=== PATIENT | male | born 1995 | race Caucasian/White ===

== ENCOUNTER 2017-09-25 14:43 | Emergency (ER) | payer OTHER ==
[2017-09-25 15:06] VITALS: BP 125/58; PULSE 70; TEMP 98.6; BMI 27.2
--- NOTE | 2017-09-25 15:20 | PDOC ---
History of Present Illness - General Chief Complaint: Substance Abuse Stated Complaint: POSSIBLE SEIZURE Time Seen by Provider: 09/25/17 15:19 - History of Present Illness Initial Comments: 09/25/17 16:08 22yo man who is current smoker and h/o seizures (on Keppra 750mg BID) who was BIBEMS after mother thought the patient was behaving abnormally and abusing drugs (Xanax and Heroine). Patient denies any recent seizure, chest pain, chest tightness, dysuria, fever, chills. He states he stopped using Heroine when he was started on Keppra 5-6 weeks ago. Patient lives at home with mother and does not work. Neurologist: Dr. Ashraf Past History - Past Medical History Allergies/Adverse Reactions: Allergies Allergy/AdvReac Type Severity Reaction Status Date / Time No Known Allergies Allergy Verified 09/25/17 14:45 Home Medications: Ambulatory Orders Levetiracetam [Keppra] 750 mg PO BID 09/25/17 Anemia: No Asthma: No Cancer: No Cardiac Disorders: No CVA: No COPD: No CHF: No Dementia: No Diabetes: No GI Disorders: No Disorders: No HTN: No Hypercholesterolemia: No Liver Disease: No Seizures: Yes Thyroid Disease: No - Surgical History Abdominal Surgery: No Appendectomy: No Cardiac Surgery: No Cholecystectomy: No Lung Surgery: No Neurologic Surgery: No Orthopedic Surgery: No - Suicide/Smoking/Psychosocial Hx Smoking History: Current every day smoker Have you smoked in the past 12 months: Yes Number of Cigarettes Smoked Daily: 15 Information on smoking cessation initiated: No 'Breaking Loose' booklet given: 05/03/16 Hx Alcohol Use: No Drug/Substance Use Hx: No Substance Use Type: Marijuana Hx Substance Use Treatment: No *Physical Exam - Vital Signs Last Vital Signs Temp Pulse Resp BP Pulse Ox 98.6 F 70 18 125/58 100 09/25/17 14:46 09/25/17 14:46 09/25/17 14:46 09/25/17 14:46 09/25/17 14:46 Medical Decision Making - Medical Decision Making 09/25/17 16:18 22yo man with PMH of seizures (on Keppra) who presents after mom called EMS for abnormal behavior. Patient offers no complaints. He denies any current drug abuse or seizures, and requesting to go home. Vital signs are stable. Patient can ambulate without issue. He denies SI and HI. He will be discharged home. 09/25/17 19:48 *DC/Admit/Observation/Transfer Diagnosis at time of Disposition: discharged by md - Referrals Referrals: Elis Vega MD [Primary Care Provider] - - Patient Instructions Additional Instructions: Follow-up with your primary care doctor in 2-3 days. Return to the emergency department if you have any new, worsening or concerning symptoms. - Post Discharge Activity
--- NOTE | 2017-09-27 19:47 | PDOC ---
Attending Attestation - Resident Resident Name: Corin Craig - ED Attending Attestation I have performed the following: I have examined & evaluated the patient, The case was reviewed & discussed with the resident, I agree w/resident's findings & plan, Exceptions are as noted - HPI HPI: 09/27/17 19:48 22yo M hx seizure d/o since childhood, smoker, PSA (heroin, xanax) BIBEMS by mother for "abnormal behavior." Pt is agitated and states he does not know why he is here. On my arrival to evaluate the patient, he begins to shout at his mother for bringing him to the ED. I asked his mother to step out of the room and had her escorted to the vertical area while I evaluated the patient alone. He states his mother activated EMS while he was taking a nap. He has no current medical complaints, denies fevers, chills, CP, SOB, headache, weakness, numbness , abd pain, N/V/D, seizures. He denies recent drug use, states he last used heroin 1 month ago when he had his last seizure. He reports compliance with his Keppra, states he takes 750mg BID. Pt reports he does not know why his mother activated EMS. He states he lives in the top floor of her house and does not currently work. He denies any current thoughts of hurting himself or anyone else. Denies any AH/VH. He requests to be discharged. Upon speaking with the patient's mother, she reports that she suspects he has been using drugs again and may have seen a text on his phone where he was going to purchase drugs. She states he did not have a seizure but that she is very worried about him using drugs again. She would like us to keep him in the hospital so that he can get some help. She denies that he was a threat to himself or others. She is concerned he may have stolen money from a family members wallet. She is very tearful during this conversation. Per EMS, they were called for reported seizure, although on their arrival, pt was behaving normally, not post ictal and had no seizure activity. - Physicial Exam PE: 09/27/17 20:19 GENERAL: Awake, alert, and fully oriented, in no acute distress HEAD: No signs of trauma EYES: PERRLA, EOMI, sclera anicteric, conjunctiva clear ENT: Auricles normal inspection, hearing grossly normal, nares patent, oropharynx clear without exudates. Moist mucosa NECK: Normal ROM, supple, no lymphadenopathy, JVD, or masses LUNGS: Breath sounds equal, clear to auscultation bilaterally. No wheezes, and no crackles HEART: Regular rate and rhythm, normal S1 and S2, no murmurs, rubs or gallops ABDOMEN: Soft, nontender, normoactive bowel sounds. No guarding, no rebound. No masses EXTREMITIES: Normal range of motion, no edema. No clubbing or cyanosis. No cords, erythema, or tenderness BACK: No midline spinal tenderness in cervical/thoracic/lumbar region NEUROLOGICAL: Normal speech, cranial nerves intact, negative pronator drift, 5/ 5 strength in all 4 extremities, normal sensation to light touch in all 4 extremities, normal cerebellar exam, normal gait, normal reflexes and tone SKIN: Warm, Dry, normal turgor, no rashes or lesions noted. - Medical Decision Making 09/25/17 21:37 22yo M hx seizure d/o, PSA BIBEMS after pt's mom was concerned that her son was using drugs. Pt's mother requesting that we keep her son here in the hospital as she would like him to be off the drugs. The pt's vitals and exam are wnl. The patient denies drug use and has no medical or psychiatric complaints. I briefly placed the patient on security watch after he was agitated and shouting at his mother. He requests to be discharged, and I believe that after my evaluation, he has the capacity to make this decision. He does not appear to be intoxicated and is cooperative. He has no current acute medical or psychiatric needs. His mother is concerned that he will use drugs, however I informed her that I can not keep him here against his will as he is an adult. I discussed the case with our rn radiation oncology psychiatrist JADE Chavez who agrees with this plan.
== END 2017-09-25 16:57 | disposition home or self-care (01) ==
LOC: JER 14:43
DX: Z03.89 Encounter for observation for other suspected diseases and conditions ruled out (principal); G40.909 Epilepsy, unspecified, not intractable, without status epilepticus; F17.210 Nicotine dependence, cigarettes, uncomplicated
CPT/HCPCS: 99282-25

== ENCOUNTER 2017-11-15 07:31 | Inpatient (IN) | payer OTHER ==
[2017-11-15] MEDS ORDERED: SODIUM CHLORIDE 1,000 ML IV STA (07:47)
[2017-11-15] MEDS ORDERED: ACETAMINOPHEN 1000 MG/100 ML VIAL (NON FORMULARY) IVPB ONE (07:48)
[2017-11-15] MEDS ORDERED: NALOXONE HCL 0.4 MG/ML VIAL ONE ×2 (07:49→08:15)
--- NOTE | 2017-11-15 07:50 | PDOC ---
Attending Attestation - Resident Resident Name: Pablo Han - ED Attending Attestation I have performed the following: I have examined & evaluated the patient, The case was reviewed & discussed with the resident, I agree w/resident's findings & plan, Exceptions are as noted - HPI HPI: 11/15/17 08:00 22y M hx of heroin abuse, seizures (on keppra) presents with AMS and SOB. Per family, he was fine yesterday, this morning, they found him confused and breathing noisily. received .4 then .4 by On arrival the pt was confused, but awake, saturating around 88% on NRB, lethargic, agitated, tachy to 102, with rhonchorus breath sounds. ddx: sepsis/pna/influenza/aspiration 11/15/17 08:31 on arrival the patients sat was in the 80s on NRB, after another dose of narcan , he was more arousable currently, able to tell me his name. respiration increased with improved sats. will continue to observe him, and narcan PRN considerd intubation / NIV if more alert 11/15/17 12:00 pts albs reviewed noted for ben trop slightly elevated -suspect due to demand ichemia as pt denies cp and there are no ischemic changes on his ekg after a dose of narcan he was much more awake, able to tell me his name, but refusing to tell me anything else about what happened prior to presentation . cxr shows b/l infiltrates, pts sat improving after bipap, currently on 07/15, 80% and is at 96% ct chest was obtained to r/o PE, and further clarify his b/l inifltrates due to his severe hypoxia, +trop lactic acid originally at 4.5, improved to 2s after hydration 11/15/17 14:30 pt awake, alert, mom bedside still on bipap, doing well. asking for water. pts CT shows /bl infiltrates likely pna no PE will admit under dr. tejeda service to ICU CRITICAL CARE DOCUMENTATION: I spent ~95 minutes of Critical Care time, excluding separately billable procedures, involving high complexity decision making to assess, manipulate and support vital system function(s) to treat single or multiple vital organ system failure and/or to prevent further life threatening deterioration of the patient' s condition. - Physicial Exam PE: 11/16/17 07:36 see above - Medical Decision Making 11/16/17 07:36 see above Heart Score/ECG Review - ECG Impressions Comment:: 11/15/17 08:34 Twelve-lead EKG was performed and reviewed by me. There is normal sinus rhythm with a HR of [address] changes suggestive of ischemia
[2017-11-15] MEDS ORDERED: ACETAMINOPHEN INJECTION 100 ML IVPB ONE (07:59)
[2017-11-15 08:08] LABS: VENOUS PC02 36.3 mmHg (38-52); VENOUS PH 7.27 (7.32-7.42); VENOUS PO2 53.1 mmHg (28-48)
[2017-11-15] MEDS ORDERED: NALOXONE HCL 0.4 MG/ML VIAL IVPUSH ONE (08:10)
[2017-11-15 08:17] LABS: BASO % 0.1 % (0-2.0); HEMATOCRIT 48.9 % (35.4-49); HEMOGLOBIN 15.4 GM/dL (11.7-16.9); LYMPH % 19.4 % (8-40); MCH 26.5 pg (25.7-33.7); MCHC 31.6 g/dl (32.0-35.9); MEAN CELL VOLUME 83.8 fl (80-96); MEAN PLT VOLUME 8.8 fl (7.5-11.1); MONO % 4.7 % (3.8-10.2); NEUT % 75.8 % (42.8-82.8); PLATELET COUNT 199 K/MM3 (134-434); RBC 5.84 M/mm3 (4.00-5.60); RDW 14.3 % (11.9-15.9); WHITE BLOOD COUNT 4.5 K/mm3 (4.0-10.0)
--- NOTE | 2017-11-15 08:30 | PDOC ---
History of Present Illness - General Chief Complaint: Altered Mental Status Stated Complaint: ALTERED MENTAL STATUS Time Seen by Provider: 11/15/17 07:39 History Source: Family Exam Limitations: Clinical Condition - History of Present Illness Initial Comments: 11/15/17 08:12 The patient is a 22M with a PMH of seizures who presents to the ER altered. The patient is with his mother who provides the history. The mother states that she saw the patient last night and he was in his normal state of health around 2330. She states that this morning she found him in his bed and he sounded like he was gurgling and was altered. He has a history of heroine abuse which he was seen in our facility for in the past. She says she's tried to keep a close eye on him but she's not sure if he used or not, or if he had a seizure or not. Past History - Past Medical History Allergies/Adverse Reactions: Allergies Allergy/AdvReac Type Severity Reaction Status Date / Time No Known Allergies Allergy Verified 11/15/17 08:48 Home Medications: Ambulatory Orders Levetiracetam [Keppra] 750 mg PO BID 09/25/17 Anemia: No Asthma: No Cancer: No Cardiac Disorders: No CVA: No COPD: No CHF: No Dementia: No Diabetes: No GI Disorders: No Disorders: No HTN: No Hypercholesterolemia: No Liver Disease: No Seizures: Yes Thyroid Disease: No - Surgical History Abdominal Surgery: No Appendectomy: No Cardiac Surgery: No Cholecystectomy: No Lung Surgery: No Neurologic Surgery: No Orthopedic Surgery: No - Suicide/Smoking/Psychosocial Hx Smoking History: Current every day smoker Have you smoked in the past 12 months: Yes Number of Cigarettes Smoked Daily: 15 Information on smoking cessation initiated: No 'Breaking Loose' booklet given: 05/03/16 Hx Alcohol Use: No Drug/Substance Use Hx: No Substance Use Type: Heroin, Marijuana Hx Substance Use Treatment: No Review of Systems - Review of Systems Able to Perform ROS?: No (clinical condition) Is the patient limited Nigerian proficient: No *Physical Exam - Vital Signs Last Vital Signs Temp Pulse Resp BP Pulse Ox 102.3 F H 160 H 36 H 119/46 100 11/15/17 07:35 11/15/17 07:35 11/15/17 07:35 11/15/17 07:35 11/15/17 07:35 - Physical Exam Comments: 11/15/17 09:15 GENERAL: Well developed, well nourished. Awake and alert. In moderate distress. HEENT: Normocephalic, atraumatic. Hearing grossly normal. Dry mucous membranes. Pinpoint pupils. No conjunctival pallor. Sclera are non-icteric. Oropharynx is clear. NECK: Supple. Full ROM. No JVD. No lymphadenopathy. CARDIOVASCULAR: Regular rate and rhythm. No murmurs, rubs, or gallops. PULMONARY: Tachypneic w/ b/l rhonchi. ABDOMINAL: Soft. Non-tender. Non-distended. No rebound or guarding. MUSCULOSKELETAL: Normal range of motion at all joints. No bony deformities or tenderness. EXTREMITIES: No cyanosis. No clubbing. No edema. No calf tenderness. SKIN: Warm and dry. Normal capillary refill. No rashes. No jaundice. PSYCHIATRIC: Not cooperative. Poor eye contact. Altered. Heart Score/ECG Review #1 ECG reviewed & interpreted by me at: 10:17 General ECG Interpretation: Sinus Rhythm, Normal Rate, Normal Intervals, No acute ischemic changes Compared to previous ECG there are: Changes noted (New tachycardia) 11/15/17 10:18 Sinus tachycardia 159 AR 114 QRS 68 QTc 390 Unchanged except for tachycardia ED Treatment Course - LABORATORY CBC & Chemistry Diagram: 11/15/17 07:50 11/15/17 07:50 - ADDITIONAL ORDERS Additional order review: Laboratory Results 11/15/17 07:50 VBG pH 7.27 L POC VBG pCO2 36.3 L POC VBG pO2 53.1 H Mixed VBG HCO3 16.0 L - Medications Given in the ED: ED Medications Discontinued Medications Generic Name Dose Route Start Last Admin Trade Name Freq PRN Reason Stop Dose Admin Acetaminophen 1,000 mg 11/15/17 07:48 11/15/17 08:02 Ofirmev Injection - IVPB 11/15/17 07:49 1,000 mg ONCE ONE Administration Medical Decision Making - Medical Decision Making 11/15/17 10:19 The patient is a 22M with a PMH of heroine abuse and seizures who presents altered. Incoming vitals significant for tachy to 150's, tachypneic to 30's, rectal temp of 102. Septic protocol is being followed. Will monitor closely. Pt requiring bipap at 100% to maintain saturation of 95%+. Broad spectrum abx and tylenol ordered IV. XR reveals b/l interstitial infiltrates, possibly ARDS. Consent signed for intubation. Drugs were found in his wallet. Presentation is likely a heroine OD with possible seizure activity and/or aspiration. Will order CT chest and head to look for other pathologies. Pt 97% on 80% FiO2 bipap. Pulse 109. Resp 23. Improving with fluids, tylenol and abx. 11/15/17 13:46 CTA IMPRESSION: 1. No evidence of pulmonary embolism. 2. Extensive, bilateral consolidation suspicious for acute pneumonia. Clinical correlation and follow- up recommended. Please see above discussion. CT Head: IMPRESSION: No definite interval change from 05/03/[address] No acute intracranial hemorrhage, mass effects or hydrocephalus. Paged Dr. Whitney for ICU admission. Pt is not producing urine. Straight cath before 3rd liter showed very little urine output. Pt satted in high 80's on 80%. Brought to 95% on 90% FiO2. 11/15/17 14:16 Dr. Vallecillo accepts admission to ICU. 11/15/17 14:42 Dr. Whitney accepts admission for ICU. *DC/Admit/Observation/Transfer Diagnosis at time of Disposition: Altered mental status Qualifiers: Altered mental status type: disorientation Qualified Code(s): R41.0 - Disorientation, unspecified Heroin overdose Qualifiers: Encounter type: subsequent encounter Injury intent: accidental or unintentional Qualified Code(s): T40.1X1D - Poisoning by heroin, accidental ( unintentional), subsequent encounter - Discharge Dispostion Condition at time of disposition: Guarded Admit: Yes - Referrals Referrals: Elis Vega MD [Non Staff, Medical] - - Patient Instructions - Post Discharge Activity
[2017-11-15 08:38] LABS: INR 1.23 (0.82-1.09); PROTHROMBIN TIME (PATIENT) 13.9 SEC (9.98-11.88)
[2017-11-15 08:40] LABS: ACTIVATED PTT 25.6 SECONDS (26.9-34.4); ALBUMIN 4.2 g/dl (3.4-5.0); ANION GAP 12 (8-16); BILIRUBIN,TOTAL 0.3 mg/dL (0.2-1.0); BLOOD UREA NITROGEN 19 mg/dL (7-18); CALCIUM 8.4 mg/dL (8.5-10.1); CHLORIDE 107 mmol/L (98-107); CO2 22 mmol/L (21-32); CREATININE 1.6 mg/dL (0.7-1.3); GLUCOSE,RANDOM 72 mg/dL (74-106); POTASSIUM 4.3 mmol/L (3.5-5.1); SGOT/AST 30 U/L (15-37); SGPT/ALT 26 U/L (12-78); SODIUM 141 mmol/L (136-145); TOT PROT 6.6 g/dl (6.4-8.2)
[2017-11-15 08:54] LABS: ALK PHOS 101 U/L (45-117)
[2017-11-15] MEDS ORDERED: SODIUM CHLORIDE 1,000 ML IV ONE ×2 (08:57→14:18)
[2017-11-15] MEDS ORDERED: SODIUM CHLORIDE 0.9% 1000 ML INFUS.BAG IV ONE ×2 (09:03→12:53)
[2017-11-15] MEDS ORDERED: PIPERACILLIN/TAZOB 4.5 GM 4.5 GM/100 ML BAG IVPB ONE ×2 (09:19→10:04)
[2017-11-15] MEDS ORDERED: VANCOMYCIN 1 GRAM (PRE-DOCKED) 1,000 MG/250 ML BAG IVPB ONE (10:04)
[2017-11-15 10:05] LABS: URINE APPEARANCE SLCLOUDY; URINE BILIRUBIN NEGATIVE (NEGATIVE); URINE BLOOD NEGATIVE (NEGATIVE); URINE COLOR YELLOW; URINE GLUCOSE (UA) 2+ (NEGATIVE); URINE KETONE NEGATIVE (NEGATIVE); URINE LEUK ESTERASE NEGATIVE (NEGATIVE); URINE NITRITE NEGATIVE (NEGATIVE); URINE UROBILINOGEN NEGATIVE mg/dL (0.2-1.0)
[2017-11-15 10:06] LABS: URINE PROTEIN 1+ (NEGATIVE)
[2017-11-15 10:11] LABS: EPI CELLS RARE /HPF (FEW); URINE BACTERIA RARE /hpf (NONE SEEN); URINE MUCUS RARE
[2017-11-15 10:15] LABS: COCAINE, UR NEGATIVE ng/ml (CUTOFF=300); METHADONE, UR NEGATIVE ng/ml (CUTOFF=300); PHENCYCLIDINE,URINE NEGATIVE ng/ml (CUTOFF=25); URINE AMPHETAMINES NEGATIVE ng/ml (CUTOFF=500); URINE BARBITURATES NEGATIVE ng/ml (CUTOFF=200)
[2017-11-15 10:16] LABS: OPIATES, URI POSITIVE ng/ml (CUTOFF=300); URINE BENZODIAZEPINES POSITIVE ng/ml (CUTOFF=200)
[2017-11-15] MEDS: VANCOMYCIN 1,000 MG in DEXTROSE 5%-WATER - 250 ML IVPB SCH (11:05)
[2017-11-15 11:52] LABS: ARTERIAL BLOOD GAS pH 7.33 (7.35-7.45)
[2017-11-15 11:53] LABS: ARTERIAL BLOOD GAS BASE EXCESS -5.9 meq/l (-2-2); ARTERIAL BLOOD GAS PCO2 36.8 mmHg (35-45); ARTERIAL BLOOD GAS PO2 72.7 mmHg (80-100)
[2017-11-15 11:54] LABS: ALLENS TEST POSITIVE
--- NOTE | 2017-11-15 12:42 | EKG ---
Test Reason : Blood Pressure : / mmHG Vent. Rate : 159 BPM Atrial Rate : 159 BPM P-R Int : 114 ms QRS Dur : 068 ms QT Int : 240 ms P-R-T Axes : 078 087 060 degrees QTc Int : 390 ms SINUS TACHYCARDIA OTHERWISE NORMAL ECG NO PREVIOUS ECGS AVAILABLE Confirmed by MARIO ESCOBAR MD ([id number]) on 11/15/2017 12:42:10 PM Referred By: Confirmed By:MARIO ESCOBAR MD
[2017-11-15] MEDS ORDERED: ONDANSETRON 4 MG/2 ML VIAL IVPUSH PRN (15:29)
[2017-11-15] MEDS ORDERED: ACETAMINOPHEN 325 MG TABLET (FP) PO PRN (15:29)
[2017-11-15] MEDS ORDERED: levETIRAcetam 500 MG/5 ML INJECTION VIAL IVPB ONE ×2 (15:40→16:12)
--- NOTE | 2017-11-15 15:42 | HP ---
Admitting History and Physical - Primary Care Physician PCP: Flakita Blake - Admission Chief Complaint: I can't breathe History of Present Illness: Mr Yinka Hayden is a 22 year old male who was brought in after being found down by his mother. He states that he was using heroin and xanax. He states he was inhaling heroin last night, his last use was two weeks ago. He cannot tell me anything else except his left foot hurts. When his mother came back in the room she says that he was normal last night and this morning he did not come down for breakfast. She states that they heard the kitten mewling in the room and when she tried to open the door it was locked and there was no response. She was able to open the door and found Mr Yinka Hayden unresponsive on the bed. EMS was called and he was found to be hypoxic and was placed on bipap. He is brought in for further care. Attempted to obtain review of systems but unable secondary to mental status. 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 - Past Surgical History Additional Past Surgical History: shoulder repair with bone graft - Smoking History Smoking history: Current every day smoker Have you smoked in the past 12 months: Yes Aproximately how many cigarettes per day: 15 - Alcohol/Substance Use Hx Alcohol Use: No History of Substance Use: reports: Heroin, Tranquilizers Date of Last Use: 11/14/17 - Social History Usual Living Arrangement: Yes: With Parent ADL: Independent History of Recent Travel: No Home Medications - Allergies Allergies/Adverse Reactions: Allergies Allergy/AdvReac Type Severity Reaction Status Date / Time No Known Allergies Allergy Verified 11/15/17 08:48 - Home Medications Home Medications: Ambulatory Orders Levetiracetam [Keppra] 750 mg PO BID 09/25/17 Family Disease History - Family Disease History Family Disease History: Other: Grandparent (HTN) Review of Systems Unable to obtain ROS, reason: AMS Physical Examination Vital Signs: Vital Signs Temperature 37.1 C 11/15/17 08:35 Pulse Rate 107 H 11/15/17 14:55 Respiratory Rate 27 H 11/15/17 14:55 Blood Pressure 121/89 11/15/17 14:55 O2 Sat by Pulse Oximetry (%) 96 02/05/18 15:15 Constitutional: Yes: Other (lethargic but arousable, protecting airway) Eyes: Yes: Conjunctiva Clear HENT: Yes: Atraumatic, Normocephalic Cardiovascular: Yes: Tachycardia. No: Pulse Irregular, Gallop, Murmur, Rub Respiratory: Yes: On BiPap, Rhonchi, Tachypnea, Wheezes. No: Regular, CTA Bilaterally Gastrointestinal: Yes: Normal Bowel Sounds, Soft. No: Distention, Tenderness Extremities: Yes: Erythema (LLE) Edema: No Labs: CBC, BMP 11/15/17 07:50 11/15/17 07:50 Imaging - Results Chest X-ray: Report Reviewed, Image Reviewed Cat Scan: Report Reviewed Problem List - Problems (1) Respiratory failure Assessment/Plan: -secondary to heroin overdose -placed on bipap in the ED -currently protecting airway and no signs of emesis -pulmonary consult -admit to ICU -improved Code(s): J96.90 - RESPIRATORY FAILURE, UNSP, UNSP W HYPOXIA OR HYPERCAPNIA Qualifiers: Chronicity: acute Respiratory failure complication: hypoxia Qualified Code(s): J96.01 - Acute respiratory failure with hypoxia (2) Heroin overdose Assessment/Plan: -patient with history of heroin use -utilized both heroin and xanax -received narcan in the ED -lethargic but arousable -continue supportive care -addiction medicine consult Code(s): T40.1X1A - POISONING BY HEROIN, ACCIDENTAL (UNINTENTIONAL), INIT ENCNTR Qualifiers: Encounter type: initial encounter Injury intent: accidental or unintentional Qualified Code(s): T40.1X1A - Poisoning by heroin, accidental ( unintentional), initial encounter (3) Toxic encephalopathy Assessment/Plan: -secondary to heroin overdose -supportive care -monitor for improvement Code(s): G92 - TOXIC ENCEPHALOPATHY (4) Aspiration into airway Assessment/Plan: -suspect occurred overnight -given vancomycin and zosyn -consult ID -start clindamycin Code(s): T17.908A - UNSP FB IN RESP TRACT, PART UNSP CAUSING OTH INJURY, INIT Qualifiers: Encounter type: initial encounter Qualified Code(s): T17.908A - Unspecified foreign body in respiratory tract, part unspecified causing other injury, initial encounter (5) Lactic acidosis Assessment/Plan: -improved with hydration Code(s): E87.2 - ACIDOSIS (6) Seizure Assessment/Plan: -low suspicion patient had seizure this time -unclear if seizure from substance abuse -give IV keppra today -consult neurology Code(s): R56.9 - UNSPECIFIED CONVULSIONS (7) Troponin level elevated Assessment/Plan: -recheck -monitor Code(s): R74.8 - ABNORMAL LEVELS OF OTHER SERUM ENZYMES (8) JEFFREY (acute kidney injury) Assessment/Plan: -hydrate with IVF -monitor for improvement Code(s): N17.9 - ACUTE KIDNEY FAILURE, UNSPECIFIED Assessment/Plan 62 minutes spent in critical care time with this patient
[2017-11-15] MEDS: SODIUM CHLORIDE 1,000 ML IV SCH (16:15)
[2017-11-15] MEDS ORDERED: ACETAMINOPHEN 325 MG TABLET (FP) ONE (20:07)
[2017-11-15] MEDS ORDERED: CHLORHEXIDINE GLUCONATE 4% CLEANSER FOR DECOLONIZATION TP SCH (22:00)
--- NOTE | 2017-11-15 22:16 | CONSULT ---
Consult Consult Specialty:: Pulmonary Critical Care Reason for Consultation:: AMS, hypoxia - History of Present Illness Chief Complaint: AMS History of Present Illness: 22 yo male with h/o seizures, heroin abuse who was found altered this morning by this mother who activated EMS. On arrival to the scene pt found altered with difficulty breathing, saturating 80s. Was given 0.4mg of Narcan x 2 and brought to ED. Initial labs notable for WBC 4.5, Lactate 4.9 (later down to 2.7), Cr 1.6 , Troponin 0.75, Ck 606, Utox positive for opiates/benzo/THC. EKG with sinus tachycardia and no ischemic changes. He was initially maintained on NRB then placed on BiPAP. ABG 7.33/37/73 (unclear how much FiO2). CT head was negative for any acute processes. CTA neg for PE, but with bilateral consolidations. Pts influenza swab was negative, he was cultured and started on Vanco/Zosyn given c/ f PNA. While in ER received 6L of fluids and one more dose of Narcan. Pt transferred to ICU for further monitoring. On arrival to ICU patient awake, in no respiratory distress. Plan to resend labs and trial off BiPAP. Current Medications Acetaminophen (Tylenol -) 650 mg PO Q4H PRN PRN Reason: PAIN OR FEVER Last Admin: 11/15/17 20:10 Dose: 650 mg Chlorhexidine Gluconate (Hibiclens For Decolonization -) 1 applic TP HS GABO Vancomycin HCl 1,000 mg/ (Dextrose) 250 mls @ 250 mls/hr IVPB BID GABO PRN Reason: Protocol Last Admin: 11/15/17 11:05 Dose: 250 mls/hr Sodium Chloride (Normal Saline -) 1,000 mls @ 100 mls/hr IV ASDIR GABO Last Admin: 11/15/17 16:15 Dose: 100 mls/hr Clindamycin Phosphate (Cleocin 600 Mg Premix Ivpb -) 600 mg in 50 mls @ 100 mls /hr IVPB Q8H-IV GABO Lactobacillus Acidophilus (Bacid -) 1 tab PO DAILY GABO Mupirocin (Bactroban Ointment (For Decolonization) -) 1 applic NS BID [facility] Stop: 11/20/17 21:59 Ondansetron HCl (Zofran Injection) 4 mg IVPUSH Q6H PRN PRN Reason: NAUSEA - Past Medical History 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 - Alcohol/Substance Use Hx Alcohol Use: No History of Substance Use: reports: Heroin, Tranquilizers Date of Last Use: 11/14/17 - Smoking History Smoking history: Current every day smoker Have you smoked in the past 12 months: Yes Aproximately how many cigarettes per day: 15 - Social History ADL: Independent History of Recent Travel: No Home Medications - Allergies Allergies/Adverse Reactions: Allergies Allergy/AdvReac Type Severity Reaction Status Date / Time No Known Allergies Allergy Verified 11/15/17 08:48 - Home Medications Home Medications: Ambulatory Orders Levetiracetam [Keppra] 750 mg PO BID 09/25/17 Family Disease History - Family Disease History Family Disease History: Other: Grandparent (HTN) Physical Exam Vital Signs: Vital Signs Temperature 98.3 F 11/15/17 21:55 Pulse Rate 98 H 11/15/17 21:55 Respiratory Rate 30 H 11/15/17 18:55 Blood Pressure 115/89 11/15/17 21:55 O2 Sat by Pulse Oximetry (%) 96 11/15/17 21:55 Constitutional: Yes: No Distress Cardiovascular: Yes: Regular Rate and Rhythm Respiratory: Yes: Regular, CTA Bilaterally Gastrointestinal: Yes: Normal Bowel Sounds, Soft Edema: No Neurological: Yes: Alert, Oriented Labs: CBC, BMP 11/15/17 07:50 11/15/17 07:50 CBCD WBC 4.5 K/mm3 (4.0-10.0) 11/15/17 07:50 RBC 5.84 M/mm3 (4.00-5.60) H 11/15/17 07:50 Hgb 15.4 GM/dL (11.7-16.9) 11/15/17 07:50 Hct 48.9 % (35.4-49) 11/15/17 07:50 MCV 83.8 fl (80-96) 11/15/17 07:50 MCHC 31.6 g/dl (32.0-35.9) L 11/15/17 07:50 RDW 14.3 % (11.9-15.9) 11/15/17 07:50 Plt Count 199 K/MM3 (134-434) 11/15/17 07:50 MPV 8.8 fl (7.5-11.1) 11/15/17 07:50 CMP Sodium 141 mmol/L (136-145) 11/15/17 07:50 Potassium 4.3 mmol/L (3.5-5.1) 11/15/17 07:50 Chloride 107 mmol/L (98-107) 11/15/17 07:50 Carbon Dioxide 22 mmol/L (21-32) 11/15/17 07:50 Anion Gap 12 (8-16) 11/15/17 07:50 BUN 19 mg/dL (7-18) H 11/15/17 07:50 Creatinine 1.6 mg/dL (0.7-1.3) H 11/15/17 07:50 Creat Clearance w eGFR 55.38 (>60) 11/15/17 07:50 Calcium 8.4 mg/dL (8.5-10.1) L 11/15/17 07:50 Total Bilirubin 0.3 mg/dL (0.2-1.0) 11/15/17 07:50 AST 30 U/L (15-37) 11/15/17 07:50 ALT 26 U/L (12-78) 11/15/17 07:50 Alkaline Phosphatase 101 U/L (45-117) 11/15/17 07:50 Total Protein 6.6 g/dl (6.4-8.2) 11/15/17 07:50 Albumin 4.2 g/dl (3.4-5.0) 11/15/17 07:50 Troponin, BNP 11/15/17 07:50 Troponin I 0.75 H* Imaging - Results Cat Scan: Report Reviewed, Image Reviewed Assessment/Plan AMS in the setting of drug use/overdose (opiates, benzos, THC) Hypoxemic respiratory failure in the setting of drug OD +/- aspiration pneumonitis vs PNA JEFFREY, ?hypovolemia vs rhabdo Troponin leak likely demand ischemia Elevated lactate Seizure disorder -monitor mental status closely -supplemental O2 as needed -BiPAP if needed (unless pt altered) -zosyn/vanco for broad coverage -follow cultures -dumont catheter -recheck BMP and CK post fluids -trend troponin -trend lactate -NPO for now -cont home RAYA Dunn Critical Care time: 35 min
[2017-11-15 23:10] VITALS: BMI 28.1
[2017-11-15 23:26] LABS: ANION GAP 9 (8-16); BLOOD UREA NITROGEN 12 mg/dL (7-18); CALCIUM 7.6 mg/dL (8.5-10.1); CHLORIDE 107 mmol/L (98-107); CO2 25 mmol/L (21-32); GLUCOSE,RANDOM 96 mg/dL (74-106); POTASSIUM 4.2 mmol/L (3.5-5.1); SODIUM 141 mmol/L (136-145)
[2017-11-16] MEDS: LACTOBACILLUS ACIDOPHILUS 1 EACH TAB (FP) PO SCH ×2 (00:29→10:17)
[2017-11-16] MEDS ORDERED: VANCOMYCIN 1,000 MG in DEXTROSE 5%-WATER - 250 ML IVPB ONE (00:30)
[2017-11-16] MEDS: MUPIROCIN 2% TOPICAL OINTMENT FOR DECOLONIZATION NS SCH ×3 (00:30→21:20)
[2017-11-16] MEDS: SODIUM CHLORIDE 1,000 ML IV SCH ×3 (00:58→22:59)
[2017-11-16] MEDS: CLINDAMYCIN 600MG PREMIX IVPB 600 MG/50 ML BAG IVPB SCH ×2 (01:07→10:17)
[2017-11-16] MEDS ORDERED: SODIUM CHLORIDE 1,000 ML IV STA (05:11)
[2017-11-16 06:13] LABS: BASO % 0.1 % (0-2.0); EOS % 0.1 % (0-4.5); HEMATOCRIT 36.9 % (35.4-49); HEMOGLOBIN 12.5 GM/dL (11.7-16.9); LYMPH % 10.6 % (8-40); MCH 27.9 pg (25.7-33.7); MCHC 33.9 g/dl (32.0-35.9); MEAN CELL VOLUME 82.3 fl (80-96); MEAN PLT VOLUME 9.6 fl (7.5-11.1); MONO % 5.8 % (3.8-10.2); NEUT % 83.4 % (42.8-82.8); PLATELET COUNT 118 K/MM3 (134-434); RBC 4.48 M/mm3 (4.00-5.60); RDW 14.7 % (11.9-15.9); WHITE BLOOD COUNT 10.6 K/mm3 (4.0-10.0)
[2017-11-16] MEDS: VANCOMYCIN 1,000 MG in DEXTROSE 5%-WATER - 250 ML IVPB SCH (06:20)
[2017-11-16 06:27] LABS: ANION GAP 9 (8-16); BLOOD UREA NITROGEN 9 mg/dL (7-18); CALCIUM 7.4 mg/dL (8.5-10.1); CHLORIDE 106 mmol/L (98-107); CO2 27 mmol/L (21-32); GLUCOSE,RANDOM 95 mg/dL (74-106); MAGNESIUM 1.4 mg/dL (1.8-2.4); POTASSIUM 3.8 mmol/L (3.5-5.1); SODIUM 142 mmol/L (136-145)
[2017-11-16 06:28] LABS: PHOSPHOROUS 2.1 mg/dL (2.5-4.9)
[2017-11-16] MEDS ORDERED: MAGNESIUM OXIDE 400 MG TABLET (FP) PO ONE (07:55)
[2017-11-16] MEDS ORDERED: MAGNESIUM SULF 50% (8.12 MEQ/2 ML-1 GM VIAL) IVPB ONE ×3 (07:55→13:00)
[2017-11-16] MEDS ORDERED: NAPH,MB-DB/K PH,MBDB POWDER PACKET PO ONE (07:56)
--- NOTE | 2017-11-16 08:27 | CONSULT ---
Consult Detox [facility] Reason for Current Admission/Consult: drug overdose with xanax and heroin, assess for need for detoxification and aftercare drug treatment Referred by:: kameron benjamin MD - History History of Present Illness: 22 yo m with h/o sporadic heorin and xanax use x8 months, strong family h/o alcoholism both parents admitted after drug overdose yesterday from xanax and heorin. smoke e cigarretss P<HX epilepsy on keppra which he takes as prescribed. does nto have opioid or xanax withdrawl sx when he does nto use. c /o [place] pain and fatigue, slight chills - History Source History Provided By: Patient, Medical Record, Caregiver Limitations to Obtaining History: No Limitations - Alcohol/Substance Use Hx Alcohol Use: No Hx Substance Use: Yes (xanax and heroin, e cigarrette) Hx Substance Use Treatment: Yes (no) - Current Drug/Alcohol Use Heroin Route: Inhalation Frequency: No use in 30 days Amount used: variable had not used 3 months prior to od Age of first use: 21 Date of Last Use: 11/15/17 Benzodiazepine (Klonopin) Route: Oral Frequency: No use in 30 days Amount used: tabatha lopez does not rememberf Age of first use: 21 Date of Last Use: 11/15/17 - Past Medical History 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 no drug withdrawal syndrome reported, no h/o daily drug use. Assessment Plan - Diagnosis (1) Benzodiazepine (tranquilizer) overdose Status: Acute (2) Benzodiazepine abuse Status: Acute (3) Heroin overdose Status: Acute (4) Opioid abuse Status: Acute (5) Seizure Status: Acute (6) Troponin level elevated Status: Acute - Plan Plan: chart reveiwed, imagina and labs reviewed, tabatha exmained, history taken. REcommend: 1. fluids 2. refer for intensive outpatient drug treatment at [facility] in [place] if patient is in agreement ( [facility] nto seem [facility] 3. prenatla vitamins, thimaine, ambien for sleep while hosptialized. 4. baclofen for chest pain, NSAIDS relatively contraindiated typenol prn. do not give prescriptions for baclofen or ambien on discharge. not a candidate for detox at this time, high risk of future overdoses with continued drug use. patient qaware and counseled re: safe drug use, not to use alone. . gardeni[facility] for consult. kiki Syed MD [phone]. - Medication Detox Regimen/Protocol: Not Applicable
[2017-11-16] MEDS ORDERED: ZOLPIDEM TARTRATE 5 MG TABLET PO PRN (09:23)
--- NOTE | 2017-11-16 09:58 | CONSULT ---
Consult - text type - Consultation Consultation Note: Neurology History of Present Illness: 22 year old male, known to me from the office, who was brought in after being found down at home. He states that he was using heroin and xanax. He states he was inhaling heroin night prior to admission, previous use was two weeks ago. He was found to be hypoxic and was placed on bipap at home when he was found by his mom. Brought to the hospital for further mgmt. Of note, Utox positive for Opiates, Benzos, and MJ. Ct head completed and did not show acute changes. CT chest reviewed and no embolus but suspicious for PNA. I've had multiple conversations with him in the past regarding substance abuse. He previously presented for seizures but this more consistent with drug overdose. S contacted. Extensive conversation with him at bedside in ICU where he is getting critical care mgmt. States he recognizes the extent of this recent overdose and could have been fatal. Says he is interested in making life change. Was also requesting pain medication. 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 - Past Surgical History Additional Past Surgical History: shoulder repair with bone graft - Smoking History Smoking history: Current every day smoker Have you smoked in the past 12 months: Yes Aproximately how many cigarettes per day: 15 - Alcohol/Substance Use Hx Alcohol Use: No History of Substance Use: reports: Heroin, Tranquilizers Date of Last Use: 11/14/17 - Social History Usual Living Arrangement: Yes: With Parent ADL: Independent History of Recent Travel: No Home Medications - Allergies Allergies/Adverse Reactions: Allergies Allergy/AdvReac Type Severity Reaction Status Date / Time No Known Allergies Allergy Verified 11/15/17 08:48 - Home Medications Home Medications: Ambulatory Orders Levetiracetam [Keppra] 750 mg PO BID 09/25/17 Family Disease History - Family Disease History Family Disease History: Other: Grandparent (HTN) Review of Systems Unable to obtain ROS, reason: AMS Physical Examination Vital Signs: Vital Signs Temperature 98.8 F 11/16/17 06:00 Pulse Rate 87 11/16/17 08:00 Respiratory Rate 20 11/16/17 08:00 Blood Pressure 134/87 11/16/17 08:00 O2 Sat by Pulse Oximetry (%) 100 11/16/17 07:24 Constitutional: Yes: Awake and alert Eyes: Yes: Conjunctiva Clear HENT: Yes: Atraumatic, Normocephalic Cardiovascular: Yes: Tachycardia. No: Pulse Irregular, Gallop, Murmur, Rub Respiratory: Yes: On BiPap, Rhonchi, Tachypnea, Wheezes. No: Regular, CTA Bilaterally Gastrointestinal: Yes: Normal Bowel Sounds, Soft. No: Distention, Tenderness Extremities: Yes: Erythema (LLE) Edema: No Neuro: Awake, alert, fatigued appearing, CN intact, moving all ext equally, sensory intact, gait deferred Labs: CBCD WBC 10.6 K/mm3 (4.0-10.0) H D 11/16/17 05:36 RBC 4.48 M/mm3 (4.00-5.60) D 11/16/17 05:36 Hgb 12.5 GM/dL (11.7-16.9) D 11/16/17 05:36 Hct 36.9 % (35.4-49) D 11/16/17 05:36 MCV 82.3 fl (80-96) 11/16/17 05:36 MCHC 33.9 g/dl (32.0-35.9) 11/16/17 05:36 RDW 14.7 % (11.9-15.9) 11/16/17 05:36 Plt Count 118 K/MM3 (134-434) L D 11/16/17 05:36 MPV 9.6 fl (7.5-11.1) 11/16/17 05:36 CMP Sodium 142 mmol/L (136-145) 11/16/17 05:36 Potassium 3.8 mmol/L (3.5-5.1) 11/16/17 05:36 Chloride 106 mmol/L (98-107) 11/16/17 05:36 Carbon Dioxide 27 mmol/L (21-32) 11/16/17 05:36 Anion Gap 9 (8-16) 11/16/17 05:36 BUN 9 mg/dL (7-18) D 11/16/17 05:36 Creatinine 1.0 mg/dL (0.7-1.3) 11/16/17 05:36 Creat Clearance w eGFR 55.38 (>60) 11/15/17 07:50 Calcium 7.4 mg/dL (8.5-10.1) L 11/16/17 05:36 Total Bilirubin 0.3 mg/dL (0.2-1.0) 11/15/17 07:50 AST 30 U/L (15-37) 11/15/17 07:50 ALT 26 U/L (12-78) 11/15/17 07:50 Alkaline Phosphatase 101 U/L (45-117) 11/15/17 07:50 Total Protein 6.6 g/dl (6.4-8.2) 11/15/17 07:50 Albumin 4.2 g/dl (3.4-5.0) 11/15/17 07:50 Imaging - Results Chest X-ray: Report Reviewed, Image Reviewed Cat Scan, Head: Report Reviewed Problem List 22 year old male, known to me from the office, who was brought in after being found down at home. He states that he was using heroin and xanax. He states he was inhaling heroin night prior to admission, previous use was two weeks ago. He was found to be hypoxic and was placed on bipap at home when he was found by his mom. Brought to the hospital for further mgmt. Of note, Utox positive for Opiates, Benzos, and MJ. Ct head completed and did not show acute changes. CT chest reviewed and no embolus but suspicious for PNA. I've had multiple conversations with him in the past regarding substance abuse. He previously presented for seizures but this more consistent with drug overdose. S contacted. Extensive conversation with him at bedside in ICU where he is getting critical care mgmt. States he recognizes the extent of this recent overdose and could have been fatal. Says he is interested in making life change. Was also requesting pain medication. -Follow up regarding detox/counciling -Follow up regarding possible PNA -Continue keppra at home dose, does not require adjustment -Events more consistent with overdose -Mental status improving -Continue monitoring respiratory status, improving -Consider NSAIDs for pain, would avoid opiates if able -Cardiac follow up -Seizure precautions Critcal care time 40 mins
[2017-11-16] MEDS ORDERED: PRENATAL VITAMINS W/ FOLIC ACID TABLET (FP) PO SCH (10:00)
[2017-11-16] MEDS ORDERED: VANCOMYCIN 1,000 MG in DEXTROSE 5%-WATER - 250 ML IVPB SCH ×2 (10:00→22:00)
[2017-11-16] MEDS ORDERED: levETIRAcetam 500 MG TABLET (FP) PO SCH (10:15)
--- NOTE | 2017-11-16 10:54 | PN ---
Progress Note, Physician Chief Complaint: Mr Yinka Hayden says he is having chest pain today, says when he takes a deep breath he has pain. Having some shortness of breath as well. No n/v or abdominal pain. - Current Medication List Current Medications: Active Medications Acetaminophen (Tylenol -) 650 mg PO Q4H PRN PRN Reason: PAIN OR FEVER Last Admin: 11/15/17 20:10 Dose: 650 mg Baclofen (Lioresal -) 10 mg PO TID [facility] Chlorhexidine Gluconate (Hibiclens For Decolonization -) 1 applic TP HS [facility] Last Admin: 11/16/17 00:30 Dose: 1 applic Sodium Chloride (Normal Saline -) 1,000 mls @ 100 mls/hr IV ASDIR GABO Last Admin: 11/16/17 00:58 Dose: 100 mls/hr Clindamycin Phosphate (Cleocin 600 Mg Premix Ivpb -) 600 mg in 50 mls @ 100 mls /hr IVPB Q8H-IV GABO Last Admin: 11/16/17 10:17 Dose: 100 mls/hr Vancomycin HCl 1,000 mg/ (Dextrose) 250 mls @ 250 mls/hr IVPB BID GABO PRN Reason: Protocol Lactobacillus Acidophilus (Bacid -) 1 tab PO DAILY [facility] Last Admin: 11/16/17 10:17 Dose: 1 tab Levetiracetam (Keppra -) 750 mg PO BID GABO Mupirocin (Bactroban Ointment (For Decolonization) -) 1 applic NS BID [facility] Stop: 11/20/17 21:59 Last Admin: 11/16/17 10:27 Dose: 1 applic Ondansetron HCl (Zofran Injection) 4 mg IVPUSH Q6H PRN PRN Reason: NAUSEA Last Admin: 11/16/17 06:13 Dose: 4 mg Potassium Phos/Sodium Phos (Phos-Nak Packet -) 1 packet PO TID [facility] Multivit/Folic Acid/Iron ( Vitamins (Sjr) -) 1 tab PO DAILY [facility] Thiamine HCl (Vitamin B1 -) 100 mg PO HS GABO Zolpidem Tartrate (Ambien -) 10 mg PO HS PRN PRN Reason: INSOMNIA - Objective Vital Signs: Vital Signs Temperature 37.0 C 11/16/17 10:00 Pulse Rate 88 11/16/17 10:00 Respiratory Rate 20 11/16/17 10:00 Blood Pressure 131/94 11/16/17 10:00 O2 Sat by Pulse Oximetry (%) 100 11/16/17 07:24 Constitutional: Yes: Well Nourished, No Distress, Calm Cardiovascular: Yes: Tachycardia. No: Pulse Irregular, Gallop, Murmur, Rub Respiratory: Yes: On Nasal O2, Rhonchi, Tachypnea (slight). No: Regular, CTA Bilaterally, Rales, Wheezes Gastrointestinal: Yes: Normal Bowel Sounds, Soft. No: Distention, Tenderness Extremities: Yes: WNL Edema: No Labs: CBC, BMP 11/16/17 05:36 11/16/17 05:36 INR, PTT INR 1.23 (0.82-1.09) H 11/15/17 07:50 Problem List - Problems (1) Respiratory failure Code(s): J96.90 - RESPIRATORY FAILURE, UNSP, UNSP W HYPOXIA OR HYPERCAPNIA Qualifiers: Chronicity: acute Respiratory failure complication: hypoxia Qualified Code(s): J96.01 - Acute respiratory failure with hypoxia (2) Heroin overdose Code(s): T40.1X1A - POISONING BY HEROIN, ACCIDENTAL (UNINTENTIONAL), INIT ENCNTR Qualifiers: Encounter type: initial encounter Injury intent: accidental or unintentional Qualified Code(s): T40.1X1A - Poisoning by heroin, accidental ( unintentional), initial encounter (3) Toxic encephalopathy Code(s): G92 - TOXIC ENCEPHALOPATHY (4) Aspiration into airway Code(s): T17.908A - UNSP FB IN RESP TRACT, PART UNSP CAUSING OTH INJURY, INIT Qualifiers: Encounter type: initial encounter Qualified Code(s): T17.908A - Unspecified foreign body in respiratory tract, part unspecified causing other injury, initial encounter (5) Lactic acidosis Code(s): E87.2 - ACIDOSIS (6) Seizure Code(s): R56.9 - UNSPECIFIED CONVULSIONS (7) Troponin level elevated Code(s): R74.8 - ABNORMAL LEVELS OF OTHER SERUM ENZYMES (8) JEFFREY (acute kidney injury) Code(s): N17.9 - ACUTE KIDNEY FAILURE, UNSPECIFIED Assessment/Plan (1) Respiratory failure Assessment/Plan: -secondary to heroin overdose -much improved but still requiring oxygen -continue oxygen support -continue antibiotics -will hold on albuterol secondary to tachycardia -pulmonary following Code(s): J96.90 - RESPIRATORY FAILURE, UNSP, UNSP W HYPOXIA OR HYPERCAPNIA Qualifiers: Chronicity: acute Respiratory failure complication: hypoxia Qualified Code(s): J96.01 - Acute respiratory failure with hypoxia (2) Heroin overdose Assessment/Plan: -unintentional -appreciate addiction medicine assistance -case d/w Dr Syed Code(s): T40.1X1A - POISONING BY HEROIN, ACCIDENTAL (UNINTENTIONAL), INIT ENCNTR Qualifiers: Encounter type: initial encounter Injury intent: accidental or unintentional Qualified Code(s): T40.1X1A - Poisoning by heroin, accidental ( unintentional), initial encounter (3) Toxic encephalopathy Assessment/Plan: -resolved Code(s): G92 - TOXIC ENCEPHALOPATHY (4) Aspiration into airway Assessment/Plan: -Dr Alexander following -clindamycin changed to vancomycin and zosyn Code(s): T17.908A - UNSP FB IN RESP TRACT, PART UNSP CAUSING OTH INJURY, INIT Qualifiers: Encounter type: initial encounter Qualified Code(s): T17.908A - Unspecified foreign body in respiratory tract, part unspecified causing other injury, initial encounter (5) Lactic acidosis Assessment/Plan: -improved with hydration Code(s): E87.2 - ACIDOSIS (6) Seizure Assessment/Plan: -continue keppra Code(s): R56.9 - UNSPECIFIED CONVULSIONS (7) Troponin level elevated Assessment/Plan -suspect stress induced -case d/w Dr Green -ECHO and repeat EKG ordered Code(s): R74.8 - ABNORMAL LEVELS OF OTHER SERUM ENZYMES (8) JEFFREY (acute kidney injury) Assessment/Plan: -hydrate with IVF -resolved Code(s): N17.9 - ACUTE KIDNEY FAILURE, UNSPECIFIED Safe to transfer to telemetry
--- NOTE | 2017-11-16 11:18 | CON.CARD ---
Cardiology Consult (text) - Consultation Consultation Note: CC: heroin overdose 22 yo smoker with h/o heroin/benzodiazepine/etoh abuse (no ivdu) and seizure who presents in respiratory arrest s/p heroin overdose, hospital course c/b extensive pna (asp?), rhabody and troponin elevation. Mother checked on patient in the morning after he didn't come down for breakfast. Was found to be altered with agonal breathing (mother with video of event). Per report, he was noted to be hypoxic by ems. Per report s/p multiple doses of narcan by EMS and in ER. Per report, no cpr. Hospital course complicated by fall in ER (did not hit head). Was also noted to be tachycardic in ER to the 160's. Elevated troponins. + LE edema (asym?) noted on arrival to ER with circular erythematous lesions on foot (now improved). + cp with inspiration only. + restlessness. + LE pain s/p fall yesterday denies sob, orthopnea, pnd, palps, dizziness, claudication, bleeding denies recent illness, f/c/s, n/v/d, cough, congestion, visual disturbances, h/a PMH/PSHx: polysubstance abuse, h/o seizure (? in relation to drug/etoh use), social hx: +cigs, heroin (nasal)/benzodiazepine/etoh abuse fam hx: mother with svt ros: per hpi Ambulatory Orders Levetiracetam [Keppra] 750 mg PO BID 09/25/17 Current Medications Acetaminophen (Tylenol -) 650 mg PO Q4H PRN PRN Reason: PAIN OR FEVER Baclofen (Lioresal -) 10 mg PO TID [facility] Last Admin: 11/17/17 05:31 Dose: 10 mg Chlorhexidine Gluconate (Hibiclens For Decolonization -) 1 applic TP HS [facility] Stop: 11/20/17 21:59 Last Admin: 11/16/17 21:20 Dose: Not Given Clonidine (Catapres -) 0.1 mg PO BID [facility] Last Admin: 11/16/17 21:14 Dose: 0.1 mg Diazepam (Valium -) 5 mg PO BID [facility] Stop: 11/19/17 22:01 Diazepam (Valium -) 5 mg PO TID [facility] Stop: 02/07/18 22:01 Last Admin: 11/17/17 05:31 Dose: 5 mg Diazepam (Valium -) 5 mg PO DAILY [facility] Stop: 11/20/17 10:01 Diazepam (Valium -) 10 mg PO Q4H PRN PRN Reason: WITHDRAWAL(CONT SUBST) Stop: 11/19/17 17:08 Sodium Chloride (Normal Saline -) 1,000 mls @ 100 mls/hr IV ASDIR [facility] Last Admin: 11/16/17 22:59 Dose: 100 mls/hr Piperacillin Sod/Tazobactam (Sod 3.375 gm/ Dextrose) 100 mls @ 200 mls/hr IVPB Q8H-IV [facility] Last Admin: 11/17/17 01:01 Dose: 200 mls/hr Vancomycin HCl 1,250 mg/ (Dextrose) 250 mls @ 166.667 mls/hr IVPB Q24H [facility] PRN Reason: Protocol Last Admin: 11/16/17 16:47 Dose: 166.667 mls/hr Lactobacillus Acidophilus (Bacid -) 1 tab PO DAILY [facility] Levetiracetam (Keppra -) 750 mg PO BID [facility] Last Admin: 11/16/17 21:14 Dose: 750 mg Methadone HCl (Dolophine -) 10 mg PO DAILY [facility] Stop: 11/20/17 10:01 Methadone HCl (Dolophine -) 15 mg PO DAILY [facility] Stop: 11/19/17 10:01 Methadone HCl (Dolophine -) 20 mg PO DAILY [facility] Stop: 11/17/17 10:01 Methadone HCl (Dolophine -) 5 mg PO DAILY@0600 [facility] Stop: 11/21/17 06:01 Mupirocin (Bactroban Ointment (For Decolonization) -) 1 applic NS BID [facility] Stop: 11/20/17 21:59 Last Admin: 11/16/17 21:20 Dose: Not Given Ondansetron HCl (Zofran Injection) 4 mg IVPUSH Q6H PRN PRN Reason: NAUSEA Potassium Phos/Sodium Phos (Phos-Nak Packet -) 1 packet PO TID [facility] Last Admin: 11/17/17 05:31 Dose: 1 packet Multivit/Folic Acid/Iron ( Vitamins (Sjr) -) 1 tab PO DAILY [facility] Thiamine HCl (Vitamin B1 -) 100 mg PO [facility] Last Admin: 11/16/17 21:21 Dose: 100 mg Zolpidem Tartrate (Ambien -) 10 mg PO HS PRN PRN Reason: INSOMNIA Last Admin: 11/16/17 22:57 Dose: 10 mg Vital Signs - 24 hr 11/16/17 11/16/17 11/16/17 07:24 08:00 09:00 Temperature Pulse Rate 87 Respiratory 20 20 Rate Blood Pressure 134/87 O2 Sat by Pulse 100 97 Oximetry (%) 11/16/17 11/16/17 11/16/17 10:00 10:35 12:00 Temperature 98.6 F Pulse Rate 88 109 H 91 H Respiratory 20 20 Rate Blood Pressure 131/94 125/69 O2 Sat by Pulse 93 L Oximetry (%) 11/16/17 11/16/17 11/16/17 12:25 13:11 21:00 Temperature Pulse Rate 90 Respiratory 22 Rate Blood Pressure 127/77 O2 Sat by Pulse 91 L 99 Oximetry (%) 11/16/17 11/16/17 11/17/17 21:26 22:00 02:00 Temperature 98.9 F 98.8 F Pulse Rate 98 H 90 Respiratory 20 23 Rate Blood Pressure 124/68 92/55 O2 Sat by Pulse 98 Oximetry (%) 11/17/17 04:08 Temperature Pulse Rate Respiratory Rate Blood Pressure O2 Sat by Pulse 98 Oximetry (%) Intake & Output 11/14/17 11/15/17 11/16/17 11/17/17 07:59 07:59 07:59 07:59 Intake Total 1950 2840 Output Total 4800 1900 Balance -2850 940 Weight 170 lb 187 lb 2 oz NAD, anxious JVD flat, neck supple ctab, nl effort rrr nl s1, s2 no m/r/g + bs soft nt nd. trace edema to lle. no c/c + dp/pt aaox3 no carotid bruits no jaundice, diaphoresis Laboratory Tests 05/06/16 11/15/17 11/15/17 07:00 07:50 07:50 WBC Hgb Plt Count 199 INR 1.23 H ABG pH ABG pCO2 at Pt Temp ABG pO2 at Pt Temp O2 Delivery Device Sodium Potassium Carbon Dioxide BUN Creatinine 0.9 Lactic Acid Phosphorus Magnesium Total Bilirubin AST ALT Alkaline Phosphatase Creatine Kinase Creatine Kinase Index CK-MB (CK-2) Troponin I Albumin Urine Protein Urine Glucose (UA) Opiates Screen Benzodiazepines Screen U Marijuana (THC) Screen Alcohol, Quantitative 11/15/17 11/15/17 11/15/17 07:50 07:50 07:50 WBC Hgb Plt Count INR ABG pH ABG pCO2 at Pt Temp ABG pO2 at Pt Temp O2 Delivery Device Sodium Potassium Carbon Dioxide BUN Creatinine 1.6 H Lactic Acid 4.9 H* Phosphorus Magnesium Total Bilirubin 0.3 AST 30 ALT 26 Alkaline Phosphatase 101 Creatine Kinase 606 H Creatine Kinase Index 0.6 CK-MB (CK-2) 3.823 H Troponin I 0.75 H* Albumin 4.2 Urine Protein Urine Glucose (UA) Opiates Screen Benzodiazepines Screen U Marijuana (THC) Screen Alcohol, Quantitative < 5.0 11/15/17 11/15/17 11/15/17 09:30 09:30 11:21 WBC Hgb Plt Count INR ABG pH 7.33 L ABG pCO2 at Pt Temp 36.8 ABG pO2 at Pt Temp 72.7 L O2 Delivery Device Bipap Sodium Potassium Carbon Dioxide BUN Creatinine Lactic Acid Phosphorus Magnesium Total Bilirubin AST ALT Alkaline Phosphatase Creatine Kinase Creatine Kinase Index CK-MB (CK-2) Troponin I Albumin Urine Protein 1+ H Urine Glucose (UA) 2+ H Opiates Screen Positive Benzodiazepines Screen Positive U Marijuana (THC) Screen Positive Alcohol, Quantitative 11/15/17 11/15/17 11/15/17 22:30 22:30 22:30 WBC Hgb Plt Count INR ABG pH ABG pCO2 at Pt Temp ABG pO2 at Pt Temp O2 Delivery Device Sodium Potassium Carbon Dioxide BUN Creatinine Lactic Acid 2.8 H* Phosphorus Magnesium Total Bilirubin AST ALT Alkaline Phosphatase Creatine Kinase 3125 H 3140 H Creatine Kinase Index 0.3 0.3 CK-MB (CK-2) 9.854 H 10.102 H Troponin I 1.15 H* D 1.15 H* Albumin Urine Protein Urine Glucose (UA) Opiates Screen Benzodiazepines Screen U Marijuana (THC) Screen Alcohol, Quantitative 11/16/17 11/16/17 05:36 05:36 WBC 10.6 H D Hgb 12.5 D Plt Count 118 L D INR ABG pH ABG pCO2 at Pt Temp ABG pO2 at Pt Temp O2 Delivery Device Sodium 142 Potassium 3.8 Carbon Dioxide 27 BUN 9 D Creatinine 1.0 Lactic Acid Phosphorus 2.1 L Magnesium 1.4 L D Total Bilirubin AST ALT Alkaline Phosphatase Creatine Kinase 2853 H Creatine Kinase Index CK-MB (CK-2) 6.920 H Troponin I 0.96 H* Albumin Urine Protein Urine Glucose (UA) Opiates Screen Benzodiazepines Screen U Marijuana (THC) Screen Alcohol, Quantitative EKG: sinus tach, 159 bpm. short pr interval. no ischemic changes. tele: sr/sinus tach chest cta: no PE. extensive patchy consolidatoin of poterior upper and lower lobes bilaterally c/w bilateral pna. prominent lymphadenopathy head ct: no acute pathology echo 04/2016: nl lv/rv size/fn. nl valves. no rvsp. A/P 22 yo smoker with h/o heroin/benzodiazepine/etoh abuse (no ivdu) and seizure who presents in respiratory arrest s/p heroin overdose, hospital course c/b extensive pna (asp?), rhabody and troponin elevation. Abnormal troponins - sx's of cp are pleuritic and c/w diagnosis of extensive bilateral pna, not c/ w anginal pain. - troponin elevation likely demand in the setting of respiratory arrest/hypoxia and subsequent tachycardia. Likely also magnified by rhabdo (ck up to 3000), +/ - seizure (h/o prior seizure in setting of substance use). Low suspicion for ACS given age and risk factors but will repeat ekg and echocardiogram. - aggressive lyte repletion LE pain/edema - s/p fall yesterday. ct neg for PE. eval/mgm't per pmd asp pna/new thrombocytopenia - per pmd + tobacco/polysubstance use - cessation counseling. detox consult following.
[2017-11-16] MEDS ORDERED: POTASSIUM CHLORIDE TABS 20 MEQ TABLET.ER (FP) PO ONE (11:20)
[2017-11-16] MEDS ORDERED: PT OWN MED DRAWER 7, Y5N ONE ×2 (11:43→17:56)
--- NOTE | 2017-11-16 11:53 | PN ---
Physical Exam: SUBJECTIVE: Patient seen and examined The patient is a 22 year old male with a PMH of seizures, heroin abuse who presented to the ED for heroin abuse admitted to the ICU for respiratory distress and concern for aspiration pneumonia. Patient has been stable overnight and stable this morning off Bipap. Otherwise no acute events overnight. OBJECTIVE: Vital Signs Period Temp Pulse Resp BP Sys/Velasquez Pulse Ox Last 24 Hr 98.3 F-100.0 F 83-110 20-32 108-154/69-98 94-100 GENERAL: The patient is awake, alert, and fully oriented, in no acute distress. HEAD: Normal with no signs of trauma. EYES: sclera anicteric, conjunctiva clear. No ptosis. ENT: oropharynx clear without exudates, moist mucous membranes. NECK: Trachea midline, full range of motion, supple. LUNGS: Breath sounds equal, clear to auscultation bilaterally, no wheezes, no crackles, no accessory muscle use. HEART: Regular rate and rhythm, S1, S2 without murmur, rub or gallop. ABDOMEN: Soft, nontender, nondistended, normoactive bowel sounds, no guarding, no rebound, no hepatosplenomegaly, no masses. EXTREMITIES: 2+ pulses, warm, well-perfused, no edema. NEUROLOGICAL: Normal speech, gait not observed. PSYCH: Normal mood, normal affect. SKIN: Warm, dry, normal turgor, no rashes or lesions noted Laboratory Results - last 24 hr 11/15/17 11/15/17 11/15/17 11:21 22:30 22:30 WBC RBC Hgb Hct MCV MCH MCHC RDW Plt Count MPV Neutrophils % Lymphocytes % Monocytes % Eosinophils % Basophils % Anticoagulation Therapy No Result Required. Puncture Site Right radial ABG pH 7.33 L ABG pCO2 at Pt Temp 36.8 ABG pO2 at Pt Temp 72.7 L ABG HCO3 18.9 L ABG O2 Sat (Measured) 94.0 ABG O2 Content 17.2 ABG Base Excess -5.9 L Dannie Test Positive Methemoglobin 1.2 O2 Delivery Device Bipap Oxygen Flow Rate Yes Vent Mode S/t Vent Rate 12 Mechanical Rate No Result Required. Pressure Support Vent 10/5 Sodium Potassium Chloride Carbon Dioxide Anion Gap BUN Creatinine Random Glucose Lactic Acid 2.8 H* Calcium Phosphorus Magnesium Creatine Kinase 3125 H Creatine Kinase Index 0.3 CK-MB (CK-2) 9.854 H Troponin I 1.15 H* D 11/15/17 11/16/17 11/16/17 22:30 05:36 05:36 WBC 10.6 H D RBC 4.48 D Hgb 12.5 D Hct 36.9 D MCV 82.3 MCH 27.9 MCHC 33.9 RDW 14.7 Plt Count 118 L D MPV 9.6 Neutrophils % 83.4 H Lymphocytes % 10.6 D Monocytes % 5.8 Eosinophils % 0.1 D Basophils % 0.1 Anticoagulation Therapy Puncture Site ABG pH ABG pCO2 at Pt Temp ABG pO2 at Pt Temp ABG HCO3 ABG O2 Sat (Measured) ABG O2 Content ABG Base Excess Dannie Test Methemoglobin O2 Delivery Device Oxygen Flow Rate Vent Mode Vent Rate Mechanical Rate Pressure Support Vent Sodium 141 142 Potassium 4.2 3.8 Chloride 107 106 Carbon Dioxide 25 27 Anion Gap 9 9 BUN 12 D 9 D Creatinine 1.0 D 1.0 Random Glucose 96 D 95 Lactic Acid Calcium 7.6 L 7.4 L Phosphorus 2.1 L Magnesium 1.4 L D Creatine Kinase 3140 H Creatine Kinase Index 0.3 CK-MB (CK-2) 10.102 H Troponin I 1.15 H* 11/16/17 08:00 WBC RBC Hgb Hct MCV MCH MCHC RDW Plt Count MPV Neutrophils % Lymphocytes % Monocytes % Eosinophils % Basophils % Anticoagulation Therapy Puncture Site ABG pH ABG pCO2 at Pt Temp ABG pO2 at Pt Temp ABG HCO3 ABG O2 Sat (Measured) ABG O2 Content ABG Base Excess Dannie Test Methemoglobin O2 Delivery Device Oxygen Flow Rate Vent Mode Vent Rate Mechanical Rate Pressure Support Vent Sodium Potassium Chloride Carbon Dioxide Anion Gap BUN Creatinine Random Glucose Lactic Acid Calcium Phosphorus Magnesium Creatine Kinase Cancelled Creatine Kinase Index CK-MB (CK-2) Troponin I Cancelled Active Medications Generic Name Dose Route Start Last Admin Trade Name Freq PRN Reason Stop Dose Admin Acetaminophen 650 mg 11/15/17 15:29 11/15/17 20:10 Tylenol - PO 650 mg Q4H PRN Administration PAIN OR FEVER Baclofen 10 mg 11/16/17 14:00 Lioresal - PO TID [facility] Chlorhexidine Gluconate 1 applic 11/15/17 22:00 11/16/17 00:30 Hibiclens For Decolonization - TP 1 applic HS [facility] Administration Sodium Chloride 1,000 mls @ 100 mls/hr 11/15/17 15:30 11/16/17 00:58 Normal Saline - IV 100 mls/hr ASDIR [facility] Administration Clindamycin Phosphate 600 mg in 50 mls @ 100 mls/hr 11/16/17 02:00 11/16/17 10:17 Cleocin 600 Mg Premix Ivpb - IVPB 100 mls/hr Q8H-IV [facility] Administration Vancomycin HCl 1,000 mg/ 250 mls @ 250 mls/hr 11/16/17 10:00 Dextrose IVPB BID [facility] Protocol Lactobacillus Acidophilus 1 tab 11/15/17 21:45 11/16/17 10:17 Bacid - PO 1 tab DAILY [facility] Administration Levetiracetam 750 mg 11/16/17 10:15 Keppra - PO BID [facility] Mupirocin 1 applic 11/15/17 22:00 11/16/17 10:27 Bactroban Ointment (For Decolonization) - NS 11/20/17 21:59 1 applic BID [facility] Administration Ondansetron HCl 4 mg 11/15/17 15:29 11/16/17 06:13 Zofran Injection IVPUSH 4 mg Q6H PRN Administration NAUSEA Potassium Phos/Sodium Phos 1 packet 11/16/17 14:00 Phos-Nak Packet - PO TID [facility] Multivit/Folic Acid/Iron 1 tab 11/16/17 10:00 Vitamins (Sjr) - PO DAILY [facility] Thiamine HCl 100 mg 11/16/17 22:00 Vitamin B1 - PO HS [facility] Zolpidem Tartrate 10 mg 11/16/17 09:23 Ambien - PO HS PRN INSOMNIA ASSESSMENT/PLAN: The patient is a 22 year old male with a PMH of seizures, heroin abuse who presented to the ED for heroin abuse admitted to the ICU for respiratory distress and concern for aspiration pneumonia. NEURO Patient is alert and oriented on exam No issues currently. -Will continue to monitor CV #Elevated troponin Patient's elevated troponin is likely due to his respiratory distress from heroin overdose. He denies any SOB or chest pain on exam. -Cardiology consultation. -Continue to trend troponin. -Will continue to monitor. RESP #Respiratory distress (improved) Patient was stable overnight on Bipap and remains stable off Bipap this morning. Chest plain film demonstrating concerns for aspiration pneumonia. -Will continue to monitor. GI No issues currently. -NG tube in place Renal No issues currently -Will continue to monitor bun/creatinine. Heme No issues currently. -Will continue to monitor h/h. ID #Concern for Aspiration Pneumonia Chest plain film concerning for aspiration pneumonia consistent with the patient 's clinical history of being found down due to a heroin overdose. -Continue clindamycin. -Conintue vancomycin. -Will continue to monitor. MSK No issues currently FEN/GI -Replete electrolytes PRN, will monitor DISPO: Stable for transfer to telemetry floor. Visit type - Emergency Visit Emergency Visit: Yes ED Registration Date: 11/15/17 Care time: The patient presented to the Emergency Department on the above date and was hospitalized for further evaluation of their emergent condition. - New Patient This patient is new to me today: Yes Date on this admission: 11/16/17 - Critical Care Critical Care patient: Yes Total Critical Care Time (in minutes): 35 Critical Care Statement: The care of this patient involved high complexity decision making to prevent further life threatening deterioration of the patient 's condition and/or to evaluate & treat vital organ system(s) failure or risk of failure.
--- NOTE | 2017-11-16 12:09 | PN ---
Teaching Attending Note Name of Resident: Ghulam Roth ATTENDING PHYSICIAN STATEMENT I saw and evaluated the patient. I reviewed the resident's note and discussed the case with the resident. I agree with the resident's findings and plan as documented. SUBJECTIVE: Patient seen and examined in the ICU. Sleepy but easily arousable. No seizure activity. No CP or SOB. Some dry cough. Intake & Output 11/13/17 11/14/17 11/15/17 11/16/17 23:59 23:59 23:59 23:59 Intake Total 0 1950 Output Total 1900 3900 Balance -1900 -1950 Weight 196 lb 7 oz 187 lb 2 oz Last Vital Signs Temp Pulse Resp BP Pulse Ox 98.6 F 91 H 20 125/69 97 11/16/17 10:00 11/16/17 11:35 11/16/17 11:35 11/16/17 11:35 11/16/17 09:00 Active Medications Acetaminophen (Tylenol -) 650 mg PO Q4H PRN PRN Reason: PAIN OR FEVER Last Admin: 11/15/17 20:10 Dose: 650 mg Baclofen (Lioresal -) 10 mg PO TID [facility] Chlorhexidine Gluconate (Hibiclens For Decolonization -) 1 applic TP HS [facility] Last Admin: 11/16/17 00:30 Dose: 1 applic Sodium Chloride (Normal Saline -) 1,000 mls @ 100 mls/hr IV ASDIR [facility] Last Admin: 11/16/17 00:58 Dose: 100 mls/hr Clindamycin Phosphate (Cleocin 600 Mg Premix Ivpb -) 600 mg in 50 mls @ 100 mls /hr IVPB Q8H-IV [facility] Last Admin: 11/16/17 10:17 Dose: 100 mls/hr Vancomycin HCl 1,000 mg/ (Dextrose) 250 mls @ 250 mls/hr IVPB BID [facility] PRN Reason: Protocol Lactobacillus Acidophilus (Bacid -) 1 tab PO DAILY [facility] Last Admin: 11/16/17 10:17 Dose: 1 tab Levetiracetam (Keppra -) 750 mg PO BID [facility] Last Admin: 11/16/17 11:45 Dose: 750 mg Mupirocin (Bactroban Ointment (For Decolonization) -) 1 applic NS BID [facility] Stop: 11/20/17 21:59 Last Admin: 11/16/17 10:27 Dose: 1 applic Ondansetron HCl (Zofran Injection) 4 mg IVPUSH Q6H PRN PRN Reason: NAUSEA Last Admin: 11/16/17 06:13 Dose: 4 mg Potassium Phos/Sodium Phos (Phos-Nak Packet -) 1 packet PO TID [facility] Multivit/Folic Acid/Iron ( Vitamins (Sjr) -) 1 tab PO DAILY [facility] Thiamine HCl (Vitamin B1 -) 100 mg PO HS [facility] Zolpidem Tartrate (Ambien -) 10 mg PO HS PRN PRN Reason: INSOMNIA Constitutional: Yes: Sleepy, NAD Cardiovascular: Yes: Regular Rate and Rhythm Respiratory: Yes: Bilateral scattered rhonchi Gastrointestinal: Yes: Normal Bowel Sounds, Soft Edema: No Neurological: Yes: non-focal Labs: Laboratory Results - last 24 hr 11/15/17 11/15/17 11/15/17 11:21 22:30 22:30 WBC RBC Hgb Hct MCV MCH MCHC RDW Plt Count MPV Neutrophils % Lymphocytes % Monocytes % Eosinophils % Basophils % ABG O2 Content 17.2 Sodium Potassium Chloride Carbon Dioxide Anion Gap BUN Creatinine Random Glucose Lactic Acid 2.8 H* Calcium Phosphorus Magnesium Creatine Kinase 3125 H Creatine Kinase Index 0.3 CK-MB (CK-2) 9.854 H Troponin I 1.15 H* D 11/15/17 11/16/17 11/16/17 22:30 05:36 05:36 WBC 10.6 H D RBC 4.48 D Hgb 12.5 D Hct 36.9 D MCV 82.3 MCH 27.9 MCHC 33.9 RDW 14.7 Plt Count 118 L D MPV 9.6 Neutrophils % 83.4 H Lymphocytes % 10.6 D Monocytes % 5.8 Eosinophils % 0.1 D Basophils % 0.1 ABG O2 Content Sodium 141 142 Potassium 4.2 3.8 Chloride 107 106 Carbon Dioxide 25 27 Anion Gap 9 9 BUN 12 D 9 D Creatinine 1.0 D 1.0 Random Glucose 96 D 95 Lactic Acid Calcium 7.6 L 7.4 L Phosphorus 2.1 L Magnesium 1.4 L D Creatine Kinase 3140 H Creatine Kinase Index 0.3 CK-MB (CK-2) 10.102 H Troponin I 1.15 H* 11/16/17 08:00 WBC RBC Hgb Hct MCV MCH MCHC RDW Plt Count MPV Neutrophils % Lymphocytes % Monocytes % Eosinophils % Basophils % ABG O2 Content Sodium Potassium Chloride Carbon Dioxide Anion Gap BUN Creatinine Random Glucose Lactic Acid Calcium Phosphorus Magnesium Creatine Kinase Cancelled Creatine Kinase Index CK-MB (CK-2) Troponin I Cancelled Assessment/Plan AMS in the setting of drug use/overdose (opiates, benzos, THC) Hypoxemic respiratory failure in the setting of drug OD +/- aspiration pneumonitis vs PNA JEFFREY, ?hypovolemia vs rhabdo Troponin leak likely demand ischemia Elevated lactate Seizure disorder -monitor mental status closely -supplemental O2 as needed -O2 to maintain saturation -Noted empiric ABX coverage -IVF -trend troponin / Cardiology consult has been called -trend lactate -PO as tolerated -Shelbie Vallecillo Critical care time spent in reviewing chart, evaluating patient and formulating plan - 36 minutes.
[2017-11-16] MEDS ORDERED: ONDANSETRON 4 MG/2 ML VIAL IVPUSH PRN (12:16)
[2017-11-16] MEDS ORDERED: ACETAMINOPHEN 325 MG TABLET (FP) PO PRN (12:16)
--- NOTE | 2017-11-16 13:08 | EKG ---
Test Reason : Blood Pressure : / mmHG Vent. Rate : 095 BPM Atrial Rate : 095 BPM P-R Int : 132 ms QRS Dur : 082 ms QT Int : 304 ms P-R-T Axes : 080 084 052 degrees QTc Int : 382 ms NORMAL SINUS RHYTHM NONSPECIFIC T WAVE ABNORMALITY ABNORMAL ECG WHEN COMPARED WITH ECG OF 15-NOV-2017 07:39, VENT. RATE HAS DECREASED BY 64 BPM NON-SPECIFIC CHANGE IN ST SEGMENT IN ANTERIOR LEADS Confirmed by Devyn Limon ([id number]) on 11/16/2017 1:07:51 PM Referred By: KATIE GARVEY DR Confirmed By:Devyn Limon
[2017-11-16] MEDS: BACLOFEN 10 MG TABLET (FP) PO SCH ×2 (13:49→21:21)
[2017-11-16] MEDS: NAPH,MB-DB/K PH,MBDB POWDER PACKET PO SCH ×2 (13:50→21:10)
[2017-11-16] MEDS ORDERED: FLU VACCINE QUAD 60 MCG/0.5 ML (MDV 17-18) IM ONE (14:00)
[2017-11-16] MEDS ORDERED: BACLOFEN 10 MG TABLET (FP) PO SCH (14:00)
[2017-11-16] MEDS ORDERED: NAPH,MB-DB/K PH,MBDB POWDER PACKET PO SCH (14:00)
[2017-11-16] MEDS: diazePAM 5 MG TABLET PO SCH ×2 (14:22→21:10)
--- NOTE | 2017-11-16 15:17 | CON.ID ---
Consult Consult Specialty:: infectious diseases Reason for Consultation:: drug abuse,pneumonia - History of Present Illness History of Present Illness: history taken from the charts as patient is very drowsy and not giving much history 22 year old male, who was brought in after being found down at home. according to the notes patient was using heroin and xanax. He states he was inhaling heroin night prior to admission, previous use was two weeks ago. He was found to be hypoxic and was placed on bipap at home when he was found by his mom. Brought to the hospital for further mgmt. Of note, Utox positive for Opiates, Benzos, and MJ. Ct head completed and did not show acute changes. CT chest reviewed and no embolus but suspicious for PNA. will have to also figure out if he does iv drugs currently patient is zonked out but looks comfortable - History Source History Provided By: Medical Record Limitations to Obtaining History: Clinical Condition - Past Medical History [employer]UM [employer]: Yes: Seizure Psych: Yes: Addictions - Alcohol/Substance Use Hx Alcohol Use: No History of Substance Use: reports: Heroin, Tranquilizers Date of Last Use: 11/14/17 - Smoking History Smoking history: Current every day smoker Have you smoked in the past 12 months: Yes Aproximately how many cigarettes per day: 15 - Social History ADL: Independent History of Recent Travel: No Home Medications - Allergies Allergies/Adverse Reactions: Allergies Allergy/AdvReac Type Severity Reaction Status Date / Time No Known Allergies Allergy Verified 11/15/17 08:48 - Home Medications Home Medications: Ambulatory Orders Levetiracetam [Keppra] 750 mg PO BID 09/25/17 Family Disease History - Family Disease History Family Disease History: Other: Grandparent (HTN) Review of Systems Unable to obtain ROS, reason: unable to obtain Physical Exam Vital Signs: Vital Signs Temperature 98.6 F 11/16/17 10:00 Pulse Rate 90 11/16/17 13:11 Respiratory Rate 22 11/16/17 13:11 Blood Pressure 127/77 11/16/17 13:11 O2 Sat by Pulse Oximetry (%) 91 L 11/16/17 12:25 Constitutional: Yes: No Distress, Calm, Other (tattoo arevalo) Eyes: Yes: Conjunctiva Clear HENT: Yes: Atraumatic, Normocephalic Neck: Yes: Supple, Trachea Midline Cardiovascular: Yes: Regular Rate and Rhythm Respiratory: Yes: Regular, Other (crackles) Gastrointestinal: Yes: Normal Bowel Sounds, Soft Musculoskeletal: Yes: WNL Extremities: Yes: WNL Neurological: Yes: Lethargy, Other Labs: CBC, BMP 11/16/17 05:36 11/16/17 05:36 Imaging - Results Chest X-ray: Report Reviewed, Image Reviewed Cat Scan: Report Reviewed, Image Reviewed Assessment/Plan Problem List - Problems (1) Respiratory failure Code(s): J96.90 - RESPIRATORY FAILURE, UNSP, UNSP W HYPOXIA OR HYPERCAPNIA Qualifiers: Chronicity: acute Respiratory failure complication: hypoxia Qualified Code(s): J96.01 - Acute respiratory failure with hypoxia (2) Heroin overdose Code(s): T40.1X1A - POISONING BY HEROIN, ACCIDENTAL (UNINTENTIONAL), INIT ENCNTR Qualifiers: Encounter type: initial encounter Injury intent: accidental or unintentional Qualified Code(s): T40.1X1A - Poisoning by heroin, accidental ( unintentional), initial encounter (3) Toxic encephalopathy Code(s): G92 - TOXIC ENCEPHALOPATHY (4) Aspiration into airway Code(s): T17.908A - UNSP FB IN RESP TRACT, PART UNSP CAUSING OTH INJURY, INIT Qualifiers: Encounter type: initial encounter Qualified Code(s): T17.908A - Unspecified foreign body in respiratory tract, part unspecified causing other injury, initial encounter (5) Lactic acidosis Code(s): E87.2 - ACIDOSIS (6) Seizure Code(s): R56.9 - UNSPECIFIED CONVULSIONS (7) Troponin level elevated Code(s): R74.8 - ABNORMAL LEVELS OF OTHER SERUM ENZYMES (8) JEFFREY (acute kidney injury) Code(s): N17.9 - ACUTE KIDNEY FAILURE, UNSPECIFIED looking at the patient he looks stbale,no arevalo iv seen on the body will figure out tomorrow if patient uses iv drugs looking at the imaging studies there is some suspicion of pna plan will cover him with vanco and leandro will figure out about his drug habits close watch await for all cx reports once we all reports then we will decide on further mgmt
[2017-11-16] MEDS ORDERED: VANCOMYCIN 1,250 MG in DEXTROSE 5%-WATER - 250 ML IVPB SCH (15:30)
[2017-11-16] MEDS: VANCOMYCIN 1,250 MG in DEXTROSE 5%-WATER - 250 ML IVPB SCH (16:47)
[2017-11-16] MEDS ORDERED: diazePAM 5 MG TABLET PO PRN (17:07)
[2017-11-16] MEDS ORDERED: METHADONE HCL 10 MG TABLET PO ONE ×2 (17:07→23:00)
[2017-11-16] MEDS ORDERED: METHADONE HCL 10 MG TABLET (FOR DETOX USE ONLY) PO ONE (17:07)
[2017-11-16] MEDS ORDERED: METHADONE HCL 10 MG TABLET ONE (17:13)
[2017-11-16] MEDS ORDERED: diazePAM 5 MG TABLET PO ONE (17:30)
[2017-11-16] MEDS ORDERED: CLINDAMYCIN 600MG PREMIX IVPB 600 MG/50 ML BAG IVPB SCH (18:00)
[2017-11-16] MEDS: PIPERACILLIN/TAZOB 3.375 GM 3.375 GM in DEXTROSE 5%-WATER - 100 ML IVPB SCH (18:00)
[2017-11-16] MEDS ORDERED: PIPERACILLIN/TAZOB 3.375 GM 50 ML IVPB SCH (18:00)
[2017-11-16] MEDS: cloNIDine HCL 0.1 MG TABLET PO SCH (21:14)
[2017-11-16] MEDS: levETIRAcetam 500 MG TABLET (FP) PO SCH (21:14)
[2017-11-16] MEDS: CHLORHEXIDINE GLUCONATE 4% CLEANSER FOR DECOLONIZATION TP SCH (21:20)
[2017-11-16] MEDS: THIAMINE HCL 100 MG TABLET (FP) PO SCH (21:21)
[2017-11-16] MEDS ORDERED: THIAMINE HCL 100 MG TABLET (FP) PO SCH (22:00)
[2017-11-16] MEDS: ZOLPIDEM TARTRATE 5 MG TABLET PO PRN (22:57)
[2017-11-17] MEDS: PIPERACILLIN/TAZOB 3.375 GM 3.375 GM in DEXTROSE 5%-WATER - 100 ML IVPB SCH ×3 (01:01→17:48)
[2017-11-17] MEDS: diazePAM 5 MG TABLET PO SCH ×4 (05:31→21:54)
[2017-11-17] MEDS: BACLOFEN 10 MG TABLET (FP) PO SCH ×3 (05:31→21:53)
[2017-11-17] MEDS: NAPH,MB-DB/K PH,MBDB POWDER PACKET PO SCH ×3 (05:31→21:53)
[2017-11-17 06:20] LABS: BASO % 0.1 % (0-2.0); EOS % 0.7 % (0-4.5); HEMATOCRIT 36.1 % (35.4-49); HEMOGLOBIN 11.9 GM/dL (11.7-16.9); LYMPH % 15.5 % (8-40); MCH 27.2 pg (25.7-33.7); MEAN CELL VOLUME 82.3 fl (80-96); MEAN PLT VOLUME 9.6 fl (7.5-11.1); MONO % 4.4 % (3.8-10.2); NEUT % 79.3 % (42.8-82.8); PLATELET COUNT 135 K/MM3 (134-434); RBC 4.39 M/mm3 (4.00-5.60); WHITE BLOOD COUNT 11.5 K/mm3 (4.0-10.0)
[2017-11-17 06:54] LABS: CALCIUM 8.3 mg/dL (8.5-10.1); CHLORIDE 105 mmol/L (98-107); GLUCOSE,RANDOM 74 mg/dL (74-106); MAGNESIUM 1.9 mg/dL (1.8-2.4); POTASSIUM 3.9 mmol/L (3.5-5.1); SODIUM 142 mmol/L (136-145)
[2017-11-17 06:56] LABS: ANION GAP 8 (8-16); BLOOD UREA NITROGEN 11 mg/dL (7-18); CO2 29 mmol/L (21-32); PHOSPHOROUS 2.4 mg/dL (2.5-4.9)
[2017-11-17] MEDS ORDERED: PT OWN MED DRAWER 7, Y5N ONE ×2 (08:47→20:46)
[2017-11-17] MEDS: LACTOBACILLUS ACIDOPHILUS 1 EACH TAB (FP) PO SCH (09:10)
[2017-11-17] MEDS: PRENATAL VITAMINS W/ FOLIC ACID TABLET (FP) PO SCH (09:11)
[2017-11-17] MEDS: cloNIDine HCL 0.1 MG TABLET PO SCH ×2 (09:12→21:52)
[2017-11-17] MEDS: levETIRAcetam 500 MG TABLET (FP) PO SCH ×2 (09:12→21:53)
[2017-11-17] MEDS: MUPIROCIN 2% TOPICAL OINTMENT FOR DECOLONIZATION NS SCH ×2 (09:13→21:59)
[2017-11-17] MEDS: SODIUM CHLORIDE 1,000 ML IV SCH ×2 (09:28→14:57)
--- NOTE | 2017-11-17 09:32 | PN ---
Progress Note (short form) - Note Progress Note: Neurology History of Present Illness: 22 year old male, known to me from the office, who was brought in after being found down at home. He states that he was using heroin and xanax. He stated he was inhaling heroin night prior to admission, previous use was two weeks ago. He was found to be hypoxic and was placed on bipap at home when he was found by his mom. Brought to the hospital for further mgmt. Of note, Utox positive for Opiates, Benzos, and MJ. Ct head completed and did not show acute changes. CT chest reviewed and no embolus but suspicious for PNA. I've had multiple conversations with him in the past regarding substance abuse. He previously presented for seizures but this more consistent with drug overdose. S contacted. Currently on methadone with tapering doses noted. Echo completed and reviewed and demonstrated normal LV function and thickness. He was downgraded to tele and not very conversive this AM but is awake, alert. No acute neurologic events overnight. Active Medications Acetaminophen (Tylenol -) 650 mg PO Q4H PRN PRN Reason: PAIN OR FEVER Baclofen (Lioresal -) 10 mg PO TID [facility] Last Admin: 11/17/17 05:31 Dose: 10 mg Chlorhexidine Gluconate (Hibiclens For Decolonization -) 1 applic TP HS [facility] Stop: 11/20/17 21:59 Last Admin: 11/16/17 21:20 Dose: Not Given Clonidine (Catapres -) 0.1 mg PO BID [facility] Last Admin: 11/17/17 09:12 Dose: 0.1 mg Diazepam (Valium -) 5 mg PO BID [facility] Stop: 11/19/17 22:01 Diazepam (Valium -) 5 mg PO TID [facility] Stop: 11/17/17 22:01 Last Admin: 11/17/17 05:31 Dose: 5 mg Diazepam (Valium -) 5 mg PO DAILY [facility] Stop: 11/20/17 10:01 Diazepam (Valium -) 10 mg PO Q4H PRN PRN Reason: WITHDRAWAL(CONT SUBST) Stop: 11/19/17 17:08 Sodium Chloride (Normal Saline -) 1,000 mls @ 100 mls/hr IV ASDIR [facility] Last Admin: 11/17/17 09:28 Dose: 100 mls/hr Piperacillin Sod/Tazobactam (Sod 3.375 gm/ Dextrose) 100 mls @ 200 mls/hr IVPB Q8H-IV [facility] Last Admin: 11/17/17 09:13 Dose: 200 mls/hr Vancomycin HCl 1,250 mg/ (Dextrose) 250 mls @ 166.667 mls/hr IVPB Q24H [facility] PRN Reason: Protocol Last Admin: 11/16/17 16:47 Dose: 166.667 mls/hr Lactobacillus Acidophilus (Bacid -) 1 tab PO DAILY [facility] Last Admin: 11/17/17 09:10 Dose: 1 tab Levetiracetam (Keppra -) 750 mg PO BID [facility] Last Admin: 11/17/17 09:12 Dose: 750 mg Methadone HCl (Dolophine -) 10 mg PO DAILY [facility] Stop: 11/20/17 10:01 Methadone HCl (Dolophine -) 15 mg PO DAILY [facility] Stop: 11/19/17 10:01 Methadone HCl (Dolophine -) 20 mg PO DAILY [facility] Stop: 11/17/17 10:01 Last Admin: 11/17/17 09:11 Dose: 20 mg Methadone HCl (Dolophine -) 5 mg PO DAILY@0600 [facility] Stop: 11/21/17 06:01 Mupirocin (Bactroban Ointment (For Decolonization) -) 1 applic NS BID [facility] Stop: 11/20/17 21:59 Last Admin: 11/17/17 09:13 Dose: Not Given Ondansetron HCl (Zofran Injection) 4 mg IVPUSH Q6H PRN PRN Reason: NAUSEA Potassium Phos/Sodium Phos (Phos-Nak Packet -) 1 packet PO TID [facility] Last Admin: 11/17/17 05:31 Dose: 1 packet Multivit/Folic Acid/Iron ( Vitamins (Sjr) -) 1 tab PO DAILY [facility] Last Admin: 11/17/17 09:11 Dose: 1 tab Thiamine HCl (Vitamin B1 -) 100 mg PO HS [facility] Last Admin: 11/16/17 21:21 Dose: 100 mg Zolpidem Tartrate (Ambien -) 10 mg PO HS PRN PRN Reason: INSOMNIA Last Admin: 11/16/17 22:57 Dose: 10 mg Physical Examination Vital Signs: Vital Signs Period Temp Pulse Resp BP Sys/Velasquez Pulse Ox Last 24 Hr 98.4 F-98.9 F 88-109 20-25 90-131/55-94 91-99 Constitutional: Yes: Awake and alert Eyes: Yes: Conjunctiva Clear HENT: Yes: Atraumatic, Normocephalic Cardiovascular: Yes: Tachycardia. No: Pulse Irregular, Gallop, Murmur, Rub Respiratory: Yes: On BiPap, Rhonchi, Tachypnea, Wheezes. No: Regular, CTA Bilaterally Gastrointestinal: Yes: Normal Bowel Sounds, Soft. No: Distention, Tenderness Extremities: Yes: Erythema (LLE) Edema: No Neuro: Awake, alert, fatigued appearing, CN intact, moving all ext equally, sensory intact, gait deferred Labs: CBCD WBC 11.5 K/mm3 (4.0-10.0) H 11/17/17 06:10 RBC 4.39 M/mm3 (4.00-5.60) 11/17/17 06:10 Hgb 11.9 GM/dL (11.7-16.9) 11/17/17 06:10 Hct 36.1 % (35.4-49) 11/17/17 06:10 MCV 82.3 fl (80-96) 11/17/17 06:10 MCHC 33.0 g/dl (32.0-35.9) 11/17/17 06:10 RDW 14.0 % (11.9-15.9) 11/17/17 06:10 Plt Count 135 K/MM3 (134-434) 11/17/17 06:10 MPV 9.6 fl (7.5-11.1) 11/17/17 06:10 CMP Sodium 142 mmol/L (136-145) 11/17/17 06:10 Potassium 3.9 mmol/L (3.5-5.1) 11/17/17 06:10 Chloride 105 mmol/L (98-107) 11/17/17 06:10 Carbon Dioxide 29 mmol/L (21-32) 11/17/17 06:10 Anion Gap 8 (8-16) 11/17/17 06:10 BUN 11 mg/dL (7-18) D 11/17/17 06:10 Creatinine 1.0 mg/dL (0.7-1.3) 02/07/18 06:10 Creat Clearance w eGFR 55.38 (>60) 11/15/17 07:50 Calcium 8.3 mg/dL (8.5-10.1) L 11/17/17 06:10 Total Bilirubin 0.3 mg/dL (0.2-1.0) 11/15/17 07:50 AST 30 U/L (15-37) 11/15/17 07:50 ALT 26 U/L (12-78) 11/15/17 07:50 Alkaline Phosphatase 101 U/L (45-117) 11/15/17 07:50 Total Protein 6.6 g/dl (6.4-8.2) 11/15/17 07:50 Albumin 4.2 g/dl (3.4-5.0) 11/15/17 07:50 Imaging - Results Chest X-ray: Report Reviewed, Image Reviewed Cat Scan, Head: Report Reviewed Problem List 22 year old male, known to me from the office, who was brought in after being found down at home. He states that he was using heroin and xanax. He states he was inhaling heroin night prior to admission, previous use was two weeks ago. He was found to be hypoxic and was placed on bipap at home when he was found by his mom. Brought to the hospital for further mgmt. Of note, Utox positive for Opiates, Benzos, and MJ. Ct head completed and did not show acute changes. CT chest reviewed and no embolus but suspicious for PNA. I've had multiple conversations with him in the past regarding substance abuse. He previously presented for seizures but this more consistent with drug overdose. [facility] contacted. Extensive conversation with him at bedside in ICU where he is getting critical care mgmt. States he recognizes the extent of this recent overdose and could have been fatal. Says he is interested in making life change. Was also requesting pain medication. -Follow up regarding detox/counciling, on methadone -Follow up regarding possible PNA -Continue keppra at home dose, does not require adjustment, restarted -Events more consistent with overdose -Mental status improving though still fatigued appearing -Continue monitoring respiratory status, improved -Hydration as required -Cardiac follow up -Seizure precautions
[2017-11-17] MEDS ORDERED: METHADONE HCL 10 MG TABLET PO SCH (10:00)
--- NOTE | 2017-11-17 11:04 | PN ---
Progress Note, Physician Chief Complaint: Mr Yinka Hayden says he is feeling better today. Chest pain has resolved. No shortness of breath or nausea/vomiting. - Current Medication List Current Medications: Active Medications Acetaminophen (Tylenol -) 650 mg PO Q4H PRN PRN Reason: PAIN OR FEVER Baclofen (Lioresal -) 10 mg PO TID [facility] Last Admin: 11/17/17 05:31 Dose: 10 mg Chlorhexidine Gluconate (Hibiclens For Decolonization -) 1 applic TP HS [facility] Stop: 11/20/17 21:59 Last Admin: 11/16/17 21:20 Dose: Not Given Clonidine (Catapres -) 0.1 mg PO BID [facility] Last Admin: 11/17/17 09:12 Dose: 0.1 mg Diazepam (Valium -) 5 mg PO BID [facility] Stop: 11/19/17 22:01 Diazepam (Valium -) 5 mg PO TID [facility] Stop: 11/17/17 22:01 Last Admin: 11/17/17 05:31 Dose: 5 mg Diazepam (Valium -) 5 mg PO DAILY [facility] Stop: 11/20/17 10:01 Diazepam (Valium -) 10 mg PO Q4H PRN PRN Reason: WITHDRAWAL(CONT SUBST) Stop: 11/19/17 17:08 Sodium Chloride (Normal Saline -) 1,000 mls @ 100 mls/hr IV ASDIR [facility] Last Admin: 11/17/17 09:28 Dose: 100 mls/hr Piperacillin Sod/Tazobactam (Sod 3.375 gm/ Dextrose) 100 mls @ 200 mls/hr IVPB Q8H-IV [facility] Last Admin: 11/17/17 09:13 Dose: 200 mls/hr Vancomycin HCl 1,250 mg/ (Dextrose) 250 mls @ 166.667 mls/hr IVPB Q24H [facility] PRN Reason: Protocol Last Admin: 11/16/17 16:47 Dose: 166.667 mls/hr Lactobacillus Acidophilus (Bacid -) 1 tab PO DAILY [facility] Last Admin: 11/17/17 09:10 Dose: 1 tab Levetiracetam (Keppra -) 750 mg PO BID [facility] Last Admin: 11/17/17 09:12 Dose: 750 mg Methadone HCl (Dolophine -) 10 mg PO DAILY [facility] Stop: 11/20/17 10:01 Methadone HCl (Dolophine -) 15 mg PO DAILY [facility] Stop: 11/19/17 10:01 Methadone HCl (Dolophine -) 5 mg PO DAILY@0600 [facility] Stop: 11/21/17 06:01 Mupirocin (Bactroban Ointment (For Decolonization) -) 1 applic NS BID [facility] Stop: 11/20/17 21:59 Last Admin: 11/17/17 09:13 Dose: Not Given Ondansetron HCl (Zofran Injection) 4 mg IVPUSH Q6H PRN PRN Reason: NAUSEA Potassium Phos/Sodium Phos (Phos-Nak Packet -) 1 packet PO TID [facility] Last Admin: 11/17/17 05:31 Dose: 1 packet Multivit/Folic Acid/Iron ( Vitamins (Sjr) -) 1 tab PO DAILY [facility] Last Admin: 11/17/17 09:11 Dose: 1 tab Thiamine HCl (Vitamin B1 -) 100 mg PO HS [facility] Last Admin: 11/16/17 21:21 Dose: 100 mg Zolpidem Tartrate (Ambien -) 10 mg PO HS PRN PRN Reason: INSOMNIA Last Admin: 11/16/17 22:57 Dose: 10 mg - Objective Vital Signs: Vital Signs Temperature 36.6 C 11/17/17 09:57 Pulse Rate 75 11/17/17 09:57 Respiratory Rate 16 11/17/17 09:57 Blood Pressure 129/59 11/17/17 09:57 O2 Sat by Pulse Oximetry (%) 98 11/17/17 06:35 Constitutional: Yes: Well Nourished, No Distress, Calm Cardiovascular: Yes: Regular Rate and Rhythm. No: Gallop, Murmur, Rub Respiratory: Yes: Regular, CTA Bilaterally, On Nasal O2. No: Rales, Rhonchi, Wheezes Gastrointestinal: Yes: Normal Bowel Sounds, Soft. No: Distention, Tenderness Extremities: Yes: WNL Edema: No Labs: CBC, BMP 11/17/17 06:10 11/17/17 06:10 INR, PTT INR 1.23 (0.82-1.09) H 11/15/17 07:50 Problem List - Problems (1) Respiratory failure Code(s): J96.90 - RESPIRATORY FAILURE, UNSP, UNSP W HYPOXIA OR HYPERCAPNIA Qualifiers: Chronicity: acute Respiratory failure complication: hypoxia Qualified Code(s): J96.01 - Acute respiratory failure with hypoxia (2) Heroin overdose Code(s): T40.1X1A - POISONING BY HEROIN, ACCIDENTAL (UNINTENTIONAL), INIT ENCNTR Qualifiers: Encounter type: initial encounter Injury intent: accidental or unintentional Qualified Code(s): T40.1X1A - Poisoning by heroin, accidental ( unintentional), initial encounter (3) Toxic encephalopathy Code(s): G92 - TOXIC ENCEPHALOPATHY (4) Aspiration into airway Code(s): T17.908A - UNSP FB IN RESP TRACT, PART UNSP CAUSING OTH INJURY, INIT Qualifiers: Encounter type: initial encounter Qualified Code(s): T17.908A - Unspecified foreign body in respiratory tract, part unspecified causing other injury, initial encounter (5) Lactic acidosis Code(s): E87.2 - ACIDOSIS (6) Seizure Code(s): R56.9 - UNSPECIFIED CONVULSIONS (7) Troponin level elevated Code(s): R74.8 - ABNORMAL LEVELS OF OTHER SERUM ENZYMES (8) JEFFREY (acute kidney injury) Code(s): N17.9 - ACUTE KIDNEY FAILURE, UNSPECIFIED Assessment/Plan (1) Respiratory failure Assessment/Plan: -secondary to heroin overdose -resolved -wean off of oxygen, will not need intermediate designer Code(s): J96.90 - RESPIRATORY FAILURE, UNSP, UNSP W HYPOXIA OR HYPERCAPNIA Qualifiers: Chronicity: acute Respiratory failure complication: hypoxia Qualified Code(s): J96.01 - Acute respiratory failure with hypoxia (2) Heroin overdose with addiction and withdrawal Assessment/Plan: -patient now going through withdrawal -patient admits to using more than he first stated -case d/w Dr Syed -begin methadone taper Code(s): T40.1X1A - POISONING BY HEROIN, ACCIDENTAL (UNINTENTIONAL), INIT ENCNTR Qualifiers: Encounter type: initial encounter Injury intent: accidental or unintentional Qualified Code(s): T40.1X1A - Poisoning by heroin, accidental ( unintentional), initial encounter (3) Toxic encephalopathy Assessment/Plan: -resolved Code(s): G92 - TOXIC ENCEPHALOPATHY (4) Aspiration into airway Assessment/Plan: -Dr Catherine brown -clindamycin changed to vancomycin and zosyn -continue current antibiotics Code(s): T17.908A - UNSP FB IN RESP TRACT, PART UNSP CAUSING OTH INJURY, INIT Qualifiers: Encounter type: initial encounter Qualified Code(s): T17.908A - Unspecified foreign body in respiratory tract, part unspecified causing other injury, initial encounter (5) Lactic acidosis Assessment/Plan: -resolved Code(s): E87.2 - ACIDOSIS (6) Seizure Assessment/Plan: -continue keppra Code(s): R56.9 - UNSPECIFIED CONVULSIONS (7) Troponin level elevated Assessment/Plan -suspect stress induced -ECHO reviewed Code(s): R74.8 - ABNORMAL LEVELS OF OTHER SERUM ENZYMES (8) JEFFREY (acute kidney injury) Assessment/Plan: -hydrate with IVF -resolved Code(s): N17.9 - ACUTE KIDNEY FAILURE, UNSPECIFIED
--- NOTE | 2017-11-17 11:15 | PN ---
Progress Note (short form) - Note Progress Note: s: no cp, sob, palps, dizzy o: Vital Signs Period Temp Pulse Resp BP Sys/Velasquez Pulse Ox Last 24 Hr 98 F-98.9 F 75-98 16-25 90-129/55-77 91-99 NAD, anxious JVD flat, neck supple ctab, nl effort rrr nl s1, s2 no m/r/g + bs soft nt nd. no le e/c/c aaox3 no jaundice, diaphoresis Current Medications Generic Name Dose Route Start Last Admin Trade Name Freq PRN Reason Stop Dose Admin Acetaminophen 650 mg 11/16/17 12:16 Tylenol - PO Q4H PRN PAIN OR FEVER Baclofen 10 mg 11/16/17 14:00 11/17/17 05:31 Lioresal - PO 10 mg TID [facility] Administration Chlorhexidine Gluconate 1 applic 11/16/17 22:00 11/16/17 21:20 Hibiclens For Decolonization - TP 11/20/17 21:59 Not Given HS [facility] Clonidine 0.1 mg 11/16/17 22:00 11/17/17 09:12 Catapres - PO 0.1 mg BID [facility] Administration Diazepam 5 mg 11/18/17 10:00 Valium - PO 11/19/17 22:01 BID [facility] Diazepam 5 mg 11/16/17 14:00 11/17/17 05:31 Valium - PO 11/17/17 22:01 5 mg TID [facility] Administration Diazepam 5 mg 11/20/17 10:00 Valium - PO 11/20/17 10:01 DAILY [facility] Diazepam 10 mg 11/16/17 17:07 Valium - PO 11/19/17 17:08 Q4H PRN WITHDRAWAL(CONT SUBST) Sodium Chloride 1,000 mls @ 100 mls/hr 11/16/17 12:16 11/17/17 09:28 Normal Saline - IV 100 mls/hr ASDIR [facility] Administration Piperacillin Sod/Tazobactam 100 mls @ 200 mls/hr 11/16/17 18:00 11/17/17 09: 13 Sod 3.375 gm/ Dextrose IVPB 200 mls/hr Q8H-IV [facility] Administration Vancomycin HCl 1,250 mg/ 250 mls @ 166.667 mls/hr 11/16/17 15:45 11/16/17 16: 47 Dextrose IVPB 166.667 mls/hr Q24H [facility] Administration Protocol Lactobacillus Acidophilus 1 tab 11/17/17 10:00 11/17/17 09:10 Bacid - PO 1 tab DAILY [facility] Administration Levetiracetam 750 mg 11/16/17 22:00 11/17/17 09:12 Keppra - PO 750 mg BID [facility] Administration Methadone HCl 10 mg 11/20/17 10:00 Dolophine - PO 11/20/17 10:01 DAILY [facility] Methadone HCl 15 mg 11/18/17 10:00 Dolophine - PO 11/19/17 10:01 DAILY [facility] Methadone HCl 5 mg 11/21/17 06:00 Dolophine - PO 11/21/17 06:01 DAILY@0600 [facility] Mupirocin 1 applic 11/16/17 22:00 11/17/17 09:13 Bactroban Ointment (For Decolonization) - NS 11/20/17 21:59 Not Given BID [facility] Ondansetron HCl 4 mg 11/16/17 12:16 Zofran Injection IVPUSH Q6H PRN NAUSEA Potassium Phos/Sodium Phos 1 packet 11/16/17 14:00 11/17/17 05:31 Phos-Nak Packet - PO 1 packet TID [facility] Administration Multivit/Folic Acid/Iron 1 tab 11/17/17 10:00 11/17/17 09:11 Vitamins (Sjr) - PO 1 tab DAILY [facility] Administration Thiamine HCl 100 mg 11/16/17 22:00 11/16/17 21:21 Vitamin B1 - PO 100 mg HS [facility] Administration Zolpidem Tartrate 10 mg 11/16/17 12:16 11/16/17 22:57 Ambien - PO 10 mg HS PRN Administration INSOMNIA CBC, BMP 11/17/17 06:10 11/17/17 06:10 EKG: sinus tach, 159 bpm. short pr interval. no ischemic changes. tele: sr chest cta: no PE. extensive patchy consolidatoin of poterior upper and lower lobes bilaterally c/w bilateral pna. prominent lymphadenopathy head ct: no acute pathology echo 04/2016: nl lv/rv size/fn. nl valves. no rvsp. echo 11/2017: nl lv/rv, no sig valve path A/P 22 yo smoker with h/o heroin/benzodiazepine/etoh abuse (no ivdu) and seizure who presents in respiratory arrest s/p heroin overdose, hospital course c/b extensive pna (asp?), rhabody and troponin elevation. Abnormal troponins - sx's of cp are pleuritic and c/w diagnosis of extensive bilateral pna, not c/ w anginal pain. - borderline troponin elevation likely demand in the setting of respiratory arrest/hypoxia and subsequent tachycardia. Likely also magnified by rhabdo (ck up to 3000), +/- seizure (h/o prior seizure in setting of substance use). Echo unremarkable. No suspicion for ACS. LE pain/edema - s/p fall. ct neg for PE. eval/mgm't per pmd asp pna/new thrombocytopenia - per pmd + tobacco/polysubstance use - cessation counseling. detox consult following.
[2017-11-17] MEDS: VANCOMYCIN 1,250 MG in DEXTROSE 5%-WATER - 250 ML IVPB SCH (15:32)
--- NOTE | 2017-11-17 17:11 | PN ---
Progress Note, Physician History of Present Illness: patient looking more awake still drowsy mother in room discussed with his mother she does not of any iv drug abuse by him - Current Medication List Current Medications: Active Medications Acetaminophen (Tylenol -) 650 mg PO Q4H PRN PRN Reason: PAIN OR FEVER Baclofen (Lioresal -) 10 mg PO TID [facility] Last Admin: 11/17/17 14:58 Dose: 10 mg Chlorhexidine Gluconate (Hibiclens For Decolonization -) 1 applic TP HS [facility] Stop: 11/20/17 21:59 Last Admin: 11/16/17 21:20 Dose: Not Given Clonidine (Catapres -) 0.1 mg PO BID [facility] Last Admin: 11/17/17 09:12 Dose: 0.1 mg Diazepam (Valium -) 5 mg PO BID [facility] Stop: 11/19/17 22:01 Diazepam (Valium -) 5 mg PO TID [facility] Stop: 11/17/17 22:01 Last Admin: 11/17/17 15:29 Dose: 5 mg Diazepam (Valium -) 5 mg PO DAILY [facility] Stop: 11/20/17 10:01 Diazepam (Valium -) 10 mg PO Q4H PRN PRN Reason: WITHDRAWAL(CONT SUBST) Stop: 11/19/17 17:08 Sodium Chloride (Normal Saline -) 1,000 mls @ 100 mls/hr IV ASDIR [facility] Last Admin: 11/17/17 14:57 Dose: Not Given Piperacillin Sod/Tazobactam (Sod 3.375 gm/ Dextrose) 100 mls @ 200 mls/hr IVPB Q8H-IV [facility] Last Admin: 11/17/17 09:13 Dose: 200 mls/hr Vancomycin HCl 1,250 mg/ (Dextrose) 250 mls @ 166.667 mls/hr IVPB Q24H GABO PRN Reason: Protocol Last Admin: 11/17/17 15:32 Dose: 166.667 mls/hr Lactobacillus Acidophilus (Bacid -) 1 tab PO DAILY [facility] Last Admin: 11/17/17 09:10 Dose: 1 tab Levetiracetam (Keppra -) 750 mg PO BID [facility] Last Admin: 11/17/17 09:12 Dose: 750 mg Methadone HCl (Dolophine -) 10 mg PO DAILY [facility] Stop: 11/20/17 10:01 Methadone HCl (Dolophine -) 15 mg PO DAILY [facility] Stop: 11/19/17 10:01 Methadone HCl (Dolophine -) 5 mg PO DAILY@0600 [facility] Stop: 11/21/17 06:01 Mupirocin (Bactroban Ointment (For Decolonization) -) 1 applic NS BID [facility] Stop: 11/20/17 21:59 Last Admin: 11/17/17 09:13 Dose: Not Given Ondansetron HCl (Zofran Injection) 4 mg IVPUSH Q6H PRN PRN Reason: NAUSEA Potassium Phos/Sodium Phos (Phos-Nak Packet -) 1 packet PO TID [facility] Last Admin: 11/17/17 14:57 Dose: 1 packet Multivit/Folic Acid/Iron ( Vitamins (Sjr) -) 1 tab PO DAILY [facility] Last Admin: 11/17/17 09:11 Dose: 1 tab Thiamine HCl (Vitamin B1 -) 100 mg PO HS [facility] Last Admin: 11/16/17 21:21 Dose: 100 mg Zolpidem Tartrate (Ambien -) 10 mg PO HS PRN PRN Reason: INSOMNIA Last Admin: 11/16/17 22:57 Dose: 10 mg - Objective Vital Signs: Vital Signs Temperature 98 F 11/17/17 13:34 Pulse Rate 76 11/17/17 13:34 Respiratory Rate 16 11/17/17 13:34 Blood Pressure 95/54 11/17/17 13:34 O2 Sat by Pulse Oximetry (%) 96 11/17/17 08:00 Constitutional: Yes: No Distress, Calm Cardiovascular: Yes: Regular Rate and Rhythm Respiratory: Yes: Regular, CTA Bilaterally Gastrointestinal: Yes: Normal Bowel Sounds, Soft Musculoskeletal: Yes: WNL Extremities: Yes: WNL Neurological: Yes: Alert, Confusion Psychiatric: Yes: Alert Labs: CBC, BMP 11/17/17 06:10 11/17/17 06:10 INR, PTT INR 1.23 (0.82-1.09) H 11/15/17 07:50 Assessment/Plan Problem List - Problems (1) Respiratory failure Code(s): J96.90 - RESPIRATORY FAILURE, UNSP, UNSP W HYPOXIA OR HYPERCAPNIA Qualifiers: Chronicity: acute Respiratory failure complication: hypoxia Qualified Code(s): J96.01 - Acute respiratory failure with hypoxia (2) Heroin overdose Code(s): T40.1X1A - POISONING BY HEROIN, ACCIDENTAL (UNINTENTIONAL), INIT ENCNTR Qualifiers: Encounter type: initial encounter Injury intent: accidental or unintentional Qualified Code(s): T40.1X1A - Poisoning by heroin, accidental ( unintentional), initial encounter (3) Toxic encephalopathy Code(s): G92 - TOXIC ENCEPHALOPATHY (4) Aspiration into airway Code(s): T17.908A - UNSP FB IN RESP TRACT, PART UNSP CAUSING OTH INJURY, INIT Qualifiers: Encounter type: initial encounter Qualified Code(s): T17.908A - Unspecified foreign body in respiratory tract, part unspecified causing other injury, initial encounter (5) Lactic acidosis Code(s): E87.2 - ACIDOSIS (6) Seizure Code(s): R56.9 - UNSPECIFIED CONVULSIONS (7) Troponin level elevated Code(s): R74.8 - ABNORMAL LEVELS OF OTHER SERUM ENZYMES (8) JEFFREY (acute kidney injury) Code(s): N17.9 - ACUTE KIDNEY FAILURE, UNSPECIFIED looking at the patient he looks stbale,no arevalo iv seen on the body will figure out tomorrow if patient uses iv drugs looking at the imaging studies there is some suspicion of pna plan will see how patient does tomorrow i if stable will start deescalating abx rest as per the team
--- NOTE | 2017-11-17 17:16 | PN ---
[facility] Progress Note (SOAP) Subjective: callled by nurse last night who reported patietn experiencing opioid withdrawal sx and startted on methadoen and valium detoxification regimen, now sedated, resting comfortably i ICU with mother at bedside, no complaints Objective: 11/18/17 19:02 Vital Signs - 24 hr 11/17/17 11/17/17 11/18/17 21:00 22:00 02:00 Temperature 98.5 F 98.2 F Pulse Rate 70 65 Respiratory 19 19 Rate Blood Pressure 108/77 115/48 O2 Sat by Pulse 99 99 Oximetry (%) 11/18/17 11/18/17 11/18/17 09:00 10:40 14:00 Temperature 98.8 F Pulse Rate 68 Respiratory 19 Rate Blood Pressure 119/76 O2 Sat by Pulse 99 100 Oximetry (%) 11/18/17 16:00 Temperature Pulse Rate 63 Respiratory 19 Rate Blood Pressure 98/68 O2 Sat by Pulse Oximetry (%) Laboratory Tests 11/15/17 11/15/17 11/15/17 07:50 07:50 07:50 WBC 4.5 RBC 5.84 H Hgb 15.4 Hct 48.9 MCV 83.8 MCH 26.5 MCHC 31.6 L RDW 14.3 Plt Count 199 MPV 8.8 Neutrophils % 75.8 Lymphocytes % 19.4 Monocytes % 4.7 Eosinophils % 0.0 Basophils % 0.1 PT with INR 13.90 H INR 1.23 H PTT (Actin FS) 25.6 L Anticoagulation Therapy Puncture Site ABG pH ABG pCO2 at Pt Temp ABG pO2 at Pt Temp ABG HCO3 ABG O2 Sat (Measured) ABG O2 Content ABG Base Excess Dannie Test VBG pH 7.27 L POC VBG pCO2 36.3 L POC VBG pO2 53.1 H Mixed VBG HCO3 16.0 L Methemoglobin O2 Delivery Device Oxygen Flow Rate Vent Mode Vent Rate Mechanical Rate Pressure Support Vent Sodium Potassium Chloride Carbon Dioxide Anion Gap BUN Creatinine Creat Clearance w eGFR Random Glucose Lactic Acid Calcium Phosphorus Magnesium Total Bilirubin AST ALT Alkaline Phosphatase Creatine Kinase Creatine Kinase Index CK-MB (CK-2) Troponin I Total Protein Albumin Urine Color Urine Appearance Urine pH Ur Specific [place] Urine Protein Urine Glucose (UA) Urine Ketones Urine Blood Urine Nitrite Urine Bilirubin Urine Urobilinogen Ur Leukocyte Esterase Urine WBC (Auto) Urine RBC (Auto) Ur Epithelial Cells Urine Bacteria Urine Mucus Opiates Screen Methadone Screen Barbiturate Screen Phencyclidine Screen Ur Amphetamines Screen MDMA (Ecstasy) Screen Benzodiazepines Screen Cocaine Screen U Marijuana (THC) Screen Alcohol, Quantitative Blood Type Antibody Screen 11/15/17 11/15/17 11/15/17 07:50 07:50 07:50 WBC RBC Hgb Hct MCV MCH MCHC RDW Plt Count MPV Neutrophils % Lymphocytes % Monocytes % Eosinophils % Basophils % PT with INR INR PTT (Actin FS) Anticoagulation Therapy Puncture Site ABG pH ABG pCO2 at Pt Temp ABG pO2 at Pt Temp ABG HCO3 ABG O2 Sat (Measured) ABG O2 Content ABG Base Excess Dannie Test VBG pH POC VBG pCO2 POC VBG pO2 Mixed VBG HCO3 Methemoglobin O2 Delivery Device Oxygen Flow Rate Vent Mode Vent Rate Mechanical Rate Pressure Support Vent Sodium 141 Potassium 4.3 Chloride 107 Carbon Dioxide 22 Anion Gap 12 BUN 19 H Creatinine 1.6 H Creat Clearance w eGFR 55.38 Random Glucose 72 L Lactic Acid 4.9 H* Calcium 8.4 L Phosphorus Magnesium Total Bilirubin 0.3 AST 30 ALT 26 Alkaline Phosphatase 101 Creatine Kinase 606 H Creatine Kinase Index 0.6 CK-MB (CK-2) 3.823 H Troponin I 0.75 H* Total Protein 6.6 Albumin 4.2 Urine Color Urine Appearance Urine pH Ur Specific [place] Urine Protein Urine Glucose (UA) Urine Ketones Urine Blood Urine Nitrite Urine Bilirubin Urine Urobilinogen Ur Leukocyte Esterase Urine WBC (Auto) Urine RBC (Auto) Ur Epithelial Cells Urine Bacteria Urine Mucus Opiates Screen Methadone Screen Barbiturate Screen Phencyclidine Screen Ur Amphetamines Screen MDMA (Ecstasy) Screen Benzodiazepines Screen Cocaine Screen U Marijuana (THC) Screen Alcohol, Quantitative Blood Type Cancelled Antibody Screen Cancelled 11/15/17 11/15/17 11/15/17 07:50 09:30 09:30 WBC RBC Hgb Hct MCV MCH MCHC RDW Plt Count MPV Neutrophils % Lymphocytes % Monocytes % Eosinophils % Basophils % PT with INR INR PTT (Actin FS) Anticoagulation Therapy Puncture Site ABG pH ABG pCO2 at Pt Temp ABG pO2 at Pt Temp ABG HCO3 ABG O2 Sat (Measured) ABG O2 Content ABG Base Excess Dannie Test VBG pH POC VBG pCO2 POC VBG pO2 Mixed VBG HCO3 Methemoglobin O2 Delivery Device Oxygen Flow Rate Vent Mode Vent Rate Mechanical Rate Pressure Support Vent Sodium Potassium Chloride Carbon Dioxide Anion Gap BUN Creatinine Creat Clearance w eGFR Random Glucose Lactic Acid Calcium Phosphorus Magnesium Total Bilirubin AST ALT Alkaline Phosphatase Creatine Kinase Creatine Kinase Index CK-MB (CK-2) Troponin I Total Protein Albumin Urine Color Yellow Urine Appearance Slcloudy Urine pH 5.0 Ur Specific [place] 1.018 Urine Protein 1+ H Urine Glucose (UA) 2+ H Urine Ketones Negative Urine Blood Negative Urine Nitrite Negative Urine Bilirubin Negative Urine Urobilinogen Negative Ur Leukocyte Esterase Negative Urine WBC (Auto) 1 Urine RBC (Auto) None Ur Epithelial Cells Rare Urine Bacteria Rare Urine Mucus Rare Opiates Screen Positive Methadone Screen Negative Barbiturate Screen Negative Phencyclidine Screen Negative Ur Amphetamines Screen Negative MDMA (Ecstasy) Screen Negative Benzodiazepines Screen Positive Cocaine Screen Negative U Marijuana (THC) Screen Positive Alcohol, Quantitative < 5.0 Blood Type Antibody Screen 11/15/17 11/15/17 11/15/17 09:30 11:21 22:30 WBC RBC Hgb Hct MCV MCH MCHC RDW Plt Count MPV Neutrophils % Lymphocytes % Monocytes % Eosinophils % Basophils % PT with INR INR PTT (Actin FS) Anticoagulation Therapy No Result Required. Puncture Site Right radial ABG pH 7.33 L ABG pCO2 at Pt Temp 36.8 ABG pO2 at Pt Temp 72.7 L ABG HCO3 18.9 L ABG O2 Sat (Measured) 94.0 ABG O2 Content 17.2 ABG Base Excess -5.9 L Dannie Test Positive VBG pH POC VBG pCO2 POC VBG pO2 Mixed VBG HCO3 Methemoglobin 1.2 O2 Delivery Device Bipap Oxygen Flow Rate Yes Vent Mode S/t Vent Rate 12 Mechanical Rate No Result Required. Pressure Support Vent 10/5 Sodium Potassium Chloride Carbon Dioxide Anion Gap BUN Creatinine Creat Clearance w eGFR Random Glucose Lactic Acid 2.7 H* Calcium Phosphorus Magnesium Total Bilirubin AST ALT Alkaline Phosphatase Creatine Kinase 3125 H Creatine Kinase Index 0.3 CK-MB (CK-2) 9.854 H Troponin I 1.15 H* D Total Protein Albumin Urine Color Urine Appearance Urine pH Ur Specific [place] Urine Protein Urine Glucose (UA) Urine Ketones Urine Blood Urine Nitrite Urine Bilirubin Urine Urobilinogen Ur Leukocyte Esterase Urine WBC (Auto) Urine RBC (Auto) Ur Epithelial Cells Urine Bacteria Urine Mucus Opiates Screen Methadone Screen Barbiturate Screen Phencyclidine Screen Ur Amphetamines Screen MDMA (Ecstasy) Screen Benzodiazepines Screen Cocaine Screen U Marijuana (THC) Screen Alcohol, Quantitative Blood Type Antibody Screen 11/15/17 11/15/17 11/16/17 22:30 22:30 05:36 WBC 10.6 H D RBC 4.48 D Hgb 12.5 D Hct 36.9 D MCV 82.3 MCH 27.9 MCHC 33.9 RDW 14.7 Plt Count 118 L D MPV 9.6 Neutrophils % 83.4 H Lymphocytes % 10.6 D Monocytes % 5.8 Eosinophils % 0.1 D Basophils % 0.1 PT with INR INR PTT (Actin FS) Anticoagulation Therapy Puncture Site ABG pH ABG pCO2 at Pt Temp ABG pO2 at Pt Temp ABG HCO3 ABG O2 Sat (Measured) ABG O2 Content ABG Base Excess Dannie Test VBG pH POC VBG pCO2 POC VBG pO2 Mixed VBG HCO3 Methemoglobin O2 Delivery Device Oxygen Flow Rate Vent Mode Vent Rate Mechanical Rate Pressure Support Vent Sodium 141 Potassium 4.2 Chloride 107 Carbon Dioxide 25 Anion Gap 9 BUN 12 D Creatinine 1.0 D Creat Clearance w eGFR Random Glucose 96 D Lactic Acid 2.8 H* Calcium 7.6 L Phosphorus Magnesium Total Bilirubin AST ALT Alkaline Phosphatase Creatine Kinase 3140 H Creatine Kinase Index 0.3 CK-MB (CK-2) 10.102 H Troponin I 1.15 H* Total Protein Albumin Urine Color Urine Appearance Urine pH Ur Specific [place] Urine Protein Urine Glucose (UA) Urine Ketones Urine Blood Urine Nitrite Urine Bilirubin Urine Urobilinogen Ur Leukocyte Esterase Urine WBC (Auto) Urine RBC (Auto) Ur Epithelial Cells Urine Bacteria Urine Mucus Opiates Screen Methadone Screen Barbiturate Screen Phencyclidine Screen Ur Amphetamines Screen MDMA (Ecstasy) Screen Benzodiazepines Screen Cocaine Screen U Marijuana (THC) Screen Alcohol, Quantitative Blood Type Antibody Screen 11/16/17 11/16/17 11/17/17 05:36 08:00 06:10 WBC 11.5 H RBC 4.39 Hgb 11.9 Hct 36.1 MCV 82.3 MCH 27.2 MCHC 33.0 RDW 14.0 Plt Count 135 MPV 9.6 Neutrophils % 79.3 Lymphocytes % 15.5 D Monocytes % 4.4 Eosinophils % 0.7 D Basophils % 0.1 PT with INR INR PTT (Actin FS) Anticoagulation Therapy Puncture Site ABG pH ABG pCO2 at Pt Temp ABG pO2 at Pt Temp ABG HCO3 ABG O2 Sat (Measured) ABG O2 Content ABG Base Excess Dannie Test VBG pH POC VBG pCO2 POC VBG pO2 Mixed VBG HCO3 Methemoglobin O2 Delivery Device Oxygen Flow Rate Vent Mode Vent Rate Mechanical Rate Pressure Support Vent Sodium 142 Potassium 3.8 Chloride 106 Carbon Dioxide 27 Anion Gap 9 BUN 9 D Creatinine 1.0 Creat Clearance w eGFR Random Glucose 95 Lactic Acid Calcium 7.4 L Phosphorus 2.1 L Magnesium 1.4 L D Total Bilirubin AST ALT Alkaline Phosphatase Creatine Kinase 2853 H Cancelled Creatine Kinase Index 0.2 CK-MB (CK-2) 6.920 H Troponin I 0.96 H* Cancelled Total Protein Albumin Urine Color Urine Appearance Urine pH Ur Specific [place] Urine Protein Urine Glucose (UA) Urine Ketones Urine Blood Urine Nitrite Urine Bilirubin Urine Urobilinogen Ur Leukocyte Esterase Urine WBC (Auto) Urine RBC (Auto) Ur Epithelial Cells Urine Bacteria Urine Mucus Opiates Screen Methadone Screen Barbiturate Screen Phencyclidine Screen Ur Amphetamines Screen MDMA (Ecstasy) Screen Benzodiazepines Screen Cocaine Screen U Marijuana (THC) Screen Alcohol, Quantitative Blood Type Antibody Screen 11/17/17 11/18/17 11/18/17 06:10 05:33 05:33 WBC 9.4 RBC 4.42 Hgb 12.2 Hct 36.2 MCV 81.9 MCH 27.6 MCHC 33.6 RDW 14.3 Plt Count 144 MPV 9.8 Neutrophils % 72.0 Lymphocytes % 18.2 Monocytes % 7.0 Eosinophils % 2.6 D Basophils % 0.2 PT with INR INR PTT (Actin FS) Anticoagulation Therapy Puncture Site ABG pH ABG pCO2 at Pt Temp ABG pO2 at Pt Temp ABG HCO3 ABG O2 Sat (Measured) ABG O2 Content ABG Base Excess Dannie Test VBG pH POC VBG pCO2 POC VBG pO2 Mixed VBG HCO3 Methemoglobin O2 Delivery Device Oxygen Flow Rate Vent Mode Vent Rate Mechanical Rate Pressure Support Vent Sodium 142 140 Potassium 3.9 3.8 Chloride 105 105 Carbon Dioxide 29 29 Anion Gap 8 6 L BUN 11 D 11 Creatinine 1.0 0.9 Creat Clearance w eGFR Random Glucose 74 D 77 Lactic Acid Calcium 8.3 L 7.4 L Phosphorus 2.4 L 3.4 D Magnesium 1.9 D 1.7 L Total Bilirubin AST ALT Alkaline Phosphatase Creatine Kinase Creatine Kinase Index CK-MB (CK-2) Troponin I Total Protein Albumin Urine Color Urine Appearance Urine pH Ur Specific [place] Urine Protein Urine Glucose (UA) Urine Ketones Urine Blood Urine Nitrite Urine Bilirubin Urine Urobilinogen Ur Leukocyte Esterase Urine WBC (Auto) Urine RBC (Auto) Ur Epithelial Cells Urine Bacteria Urine Mucus Opiates Screen Methadone Screen Barbiturate Screen Phencyclidine Screen Ur Amphetamines Screen MDMA (Ecstasy) Screen Benzodiazepines Screen Cocaine Screen U Marijuana (THC) Screen Alcohol, Quantitative Blood Type Antibody Screen Assessment: 11/18/17 19:02 opiopd use disorder witih uncomplicated withdrawal, benzodiazepien dependence with uncomp;licated withdrawal sx, h/o seizurs do, r/o pneumonia for aspiration s/p OD. elevated. WBC could be from withdrawwal and od. patient adn mtoehr counselwith dr. Whitney re: need for rehab, pateint resistant , discussed MAT with suboxone. cotn detox as ordered.
[2017-11-17] MEDS: THIAMINE HCL 100 MG TABLET (FP) PO SCH (21:54)
[2017-11-17] MEDS: ZOLPIDEM TARTRATE 5 MG TABLET PO PRN (21:55)
[2017-11-17] MEDS: CHLORHEXIDINE GLUCONATE 4% CLEANSER FOR DECOLONIZATION TP SCH (21:59)
[2017-11-18] MEDS: SODIUM CHLORIDE 1,000 ML IV SCH
[2017-11-18] MEDS: PIPERACILLIN/TAZOB 3.375 GM 3.375 GM in DEXTROSE 5%-WATER - 100 ML IVPB SCH ×2 (01:18→09:38)
[2017-11-18] MEDS: BACLOFEN 10 MG TABLET (FP) PO SCH ×2 (05:44→21:31)
[2017-11-18] MEDS: NAPH,MB-DB/K PH,MBDB POWDER PACKET PO SCH (05:44)
[2017-11-18 06:27] LABS: BASO % 0.2 % (0-2.0); EOS % 2.6 % (0-4.5); HEMATOCRIT 36.2 % (35.4-49); HEMOGLOBIN 12.2 GM/dL (11.7-16.9); LYMPH % 18.2 % (8-40); MCH 27.6 pg (25.7-33.7); MCHC 33.6 g/dl (32.0-35.9); MEAN CELL VOLUME 81.9 fl (80-96); MEAN PLT VOLUME 9.8 fl (7.5-11.1); PLATELET COUNT 144 K/MM3 (134-434); RBC 4.42 M/mm3 (4.00-5.60); RDW 14.3 % (11.9-15.9); WHITE BLOOD COUNT 9.4 K/mm3 (4.0-10.0)
[2017-11-18 07:12] LABS: ANION GAP 6 (8-16); BLOOD UREA NITROGEN 11 mg/dL (7-18); CALCIUM 7.4 mg/dL (8.5-10.1); CHLORIDE 105 mmol/L (98-107); CO2 29 mmol/L (21-32); CREATININE 0.9 mg/dL (0.7-1.3); GLUCOSE,RANDOM 77 mg/dL (74-106); MAGNESIUM 1.7 mg/dL (1.8-2.4); PHOSPHOROUS 3.4 mg/dL (2.5-4.9); POTASSIUM 3.8 mmol/L (3.5-5.1); SODIUM 140 mmol/L (136-145)
[2017-11-18] MEDS ORDERED: PT OWN MED DRAWER 7, Y5N ONE (09:14)
[2017-11-18] MEDS: METHADONE HCL 5 MG TABLET PO SCH (09:24)
[2017-11-18] MEDS: diazePAM 5 MG TABLET PO SCH ×2 (09:25→21:26)
[2017-11-18] MEDS: PRENATAL VITAMINS W/ FOLIC ACID TABLET (FP) PO SCH (09:25)
[2017-11-18] MEDS: LACTOBACILLUS ACIDOPHILUS 1 EACH TAB (FP) PO SCH (09:25)
[2017-11-18] MEDS: cloNIDine HCL 0.1 MG TABLET PO SCH (09:25)
[2017-11-18] MEDS: levETIRAcetam 500 MG TABLET (FP) PO SCH ×2 (09:25→21:25)
[2017-11-18] MEDS: MUPIROCIN 2% TOPICAL OINTMENT FOR DECOLONIZATION NS SCH ×2 (09:28→21:25)
--- NOTE | 2017-11-18 09:53 | PN ---
Progress Note (short form) - Note Progress Note: Neurology History of Present Illness: 22 year old male, known to me from the office, who was brought in after being found down at home. He states that he was using heroin and xanax. He stated he was inhaling heroin night prior to admission, previous use was two weeks ago. He was found to be hypoxic and was placed on bipap at home when he was found by his mom. Brought to the hospital for further mgmt. Of note, Utox positive for Opiates, Benzos, and MJ. Ct head completed and did not show acute changes. CT chest reviewed and no embolus but suspicious for PNA. I've had multiple conversations with him in the past regarding substance abuse. He previously presented for seizures but this more consistent with drug overdose. Echo completed and reviewed and demonstrated normal LV function and thickness. He was downgraded to tele and had conversation with him and mother in detail. Encouraged him to seek treatment, inpatient program if possible. He is resistent. Not committing to even outpatient program at this time. Minimally conversive. Mother at bedside tearful and concerned that future relapses could be fatal. Active Medications Acetaminophen (Tylenol -) 650 mg PO Q4H PRN PRN Reason: PAIN OR FEVER Baclofen (Lioresal -) 10 mg PO TID [facility] Last Admin: 11/18/17 05:44 Dose: 10 mg Chlorhexidine Gluconate (Hibiclens For Decolonization -) 1 applic TP HS [facility] Stop: 11/20/17 21:59 Last Admin: 11/17/17 21:59 Dose: Not Given Clonidine (Catapres -) 0.1 mg PO BID [facility] Last Admin: 11/18/17 09:25 Dose: 0.1 mg Diazepam (Valium -) 5 mg PO BID [facility] Stop: 11/19/17 22:01 Last Admin: 11/18/17 09:25 Dose: 5 mg Diazepam (Valium -) 5 mg PO DAILY [facility] Stop: 11/20/17 10:01 Sodium Chloride (Normal Saline -) 1,000 mls @ 100 mls/hr IV ASDIR [facility] Last Admin: 11/18/17 00:00 Dose: 100 mls/hr Piperacillin Sod/Tazobactam (Sod 3.375 gm/ Dextrose) 100 mls @ 200 mls/hr IVPB Q8H-IV [facility] Last Admin: 11/18/17 09:38 Dose: 200 mls/hr Lactobacillus Acidophilus (Bacid -) 1 tab PO DAILY [facility] Last Admin: 11/18/17 09:25 Dose: 1 tab Levetiracetam (Keppra -) 750 mg PO BID [facility] Last Admin: 11/18/17 09:25 Dose: 750 mg Methadone HCl (Dolophine -) 10 mg PO DAILY [facility] Stop: 11/20/17 10:01 Methadone HCl (Dolophine -) 15 mg PO DAILY [facility] Stop: 11/19/17 10:01 Last Admin: 11/18/17 09:24 Dose: 15 mg Methadone HCl (Dolophine -) 5 mg PO DAILY@0600 [facility] Stop: 11/21/17 06:01 Mupirocin (Bactroban Ointment (For Decolonization) -) 1 applic NS BID [facility] Stop: 11/20/17 21:59 Last Admin: 11/18/17 09:28 Dose: 1 applic Ondansetron HCl (Zofran Injection) 4 mg IVPUSH Q6H PRN PRN Reason: NAUSEA Potassium Phos/Sodium Phos (Phos-Nak Packet -) 1 packet PO TID [facility] Last Admin: 11/18/17 05:44 Dose: 1 packet Multivit/Folic Acid/Iron ( Vitamins (Sjr) -) 1 tab PO DAILY [facility] Last Admin: 11/18/17 09:25 Dose: 1 tab Thiamine HCl (Vitamin B1 -) 100 mg PO HS [facility] Last Admin: 11/17/17 21:54 Dose: 100 mg Zolpidem Tartrate (Ambien -) 10 mg PO HS PRN PRN Reason: INSOMNIA Last Admin: 11/17/17 21:55 Dose: 10 mg Physical Examination Vital Signs Temperature 98.2 F 11/18/17 02:00 Pulse Rate 65 11/18/17 02:00 Respiratory Rate 19 11/18/17 02:00 Blood Pressure 115/48 11/18/17 02:00 O2 Sat by Pulse Oximetry (%) 99 11/17/17 22:00 Constitutional: Yes: Awake and alert Eyes: Yes: Conjunctiva Clear HENT: Yes: Atraumatic, Normocephalic Cardiovascular: Yes: Tachycardia. No: Pulse Irregular, Gallop, Murmur, Rub Respiratory: Yes: On BiPap, Rhonchi, Tachypnea, Wheezes. No: Regular, CTA Bilaterally Gastrointestinal: Yes: Normal Bowel Sounds, Soft. No: Distention, Tenderness Extremities: Yes: Erythema (LLE) Edema: No Neuro: Awake, alert, fatigued appearing, CN intact, moving all ext equally, sensory intact, gait deferred Labs: CBCD WBC 9.4 K/mm3 (4.0-10.0) 11/18/17 05:33 RBC 4.42 M/mm3 (4.00-5.60) 11/18/17 05:33 Hgb 12.2 GM/dL (11.7-16.9) 11/18/17 05:33 Hct 36.2 % (35.4-49) 11/18/17 05:33 MCV 81.9 fl (80-96) 11/18/17 05:33 MCHC 33.6 g/dl (32.0-35.9) 11/18/17 05:33 RDW 14.3 % (11.9-15.9) 11/18/17 05:33 Plt Count 144 K/MM3 (134-434) 11/18/17 05:33 MPV 9.8 fl (7.5-11.1) 11/18/17 05:33 CMP Sodium 140 mmol/L (136-145) 11/18/17 05:33 Potassium 3.8 mmol/L (3.5-5.1) 11/18/17 05:33 Chloride 105 mmol/L (98-107) 11/18/17 05:33 Carbon Dioxide 29 mmol/L (21-32) 11/18/17 05:33 Anion Gap 6 (8-16) L 11/18/17 05:33 BUN 11 mg/dL (7-18) 11/18/17 05:33 Creatinine 0.9 mg/dL (0.7-1.3) 11/18/17 05:33 Creat Clearance w eGFR 55.38 (>60) 11/15/17 07:50 Calcium 7.4 mg/dL (8.5-10.1) L 11/18/17 05:33 Total Bilirubin 0.3 mg/dL (0.2-1.0) 11/15/17 07:50 AST 30 U/L (15-37) 02/05/18 07:50 ALT 26 U/L (12-78) 11/15/17 07:50 Alkaline Phosphatase 101 U/L (45-117) 11/15/17 07:50 Total Protein 6.6 g/dl (6.4-8.2) 11/15/17 07:50 Albumin 4.2 g/dl (3.4-5.0) 11/15/17 07:50 Imaging - Results Chest X-ray: Report Reviewed, Image Reviewed Cat Scan, Head: Report Reviewed Problem List 22 year old male, known to me from the office, who was brought in after being found down at home. He states that he was using heroin and xanax. He states he was inhaling heroin night prior to admission, previous use was two weeks ago. He was found to be hypoxic and was placed on bipap at home when he was found by his mom. Brought to the hospital for further mgmt. Of note, Utox positive for Opiates, Benzos, and MJ. Ct head completed and did not show acute changes. CT chest reviewed and no embolus but suspicious for PNA. I've had multiple conversations with him in the past regarding substance abuse. He previously presented for seizures but this more consistent with drug overdose. -Follow up regarding detox/counciling, on methadone -Follow up regarding possible PNA -Continue keppra at home dose, does not require adjustment, restarted -Events more consistent with overdose -Mental status improving though still fatigued appearing -Continue monitoring respiratory status, improved -Hydration as required -Cardiac follow up -Seizure precautions -Conversation with patient and mother about next steps today -Not committing to treatment
--- NOTE | 2017-11-18 10:41 | PN ---
Progress Note, Physician - Current Medication List Current Medications: Active Medications Acetaminophen (Tylenol -) 650 mg PO Q4H PRN PRN Reason: PAIN OR FEVER Baclofen (Lioresal -) 10 mg PO TID [facility] Last Admin: 11/18/17 05:44 Dose: 10 mg Chlorhexidine Gluconate (Hibiclens For Decolonization -) 1 applic TP HS [facility] Stop: 11/20/17 21:59 Last Admin: 11/17/17 21:59 Dose: Not Given Diazepam (Valium -) 5 mg PO BID [facility] Stop: 11/19/17 22:01 Last Admin: 11/18/17 09:25 Dose: 5 mg Diazepam (Valium -) 5 mg PO DAILY [facility] Stop: 11/20/17 10:01 Sodium Chloride (Normal Saline -) 1,000 mls @ 100 mls/hr IV ASDIR [facility] Last Admin: 11/18/17 00:00 Dose: 100 mls/hr Piperacillin Sod/Tazobactam (Sod 3.375 gm/ Dextrose) 100 mls @ 200 mls/hr IVPB Q8H-IV [facility] Last Admin: 11/18/17 09:38 Dose: 200 mls/hr Lactobacillus Acidophilus (Bacid -) 1 tab PO DAILY [facility] Last Admin: 11/18/17 09:25 Dose: 1 tab Levetiracetam (Keppra -) 750 mg PO BID [facility] Last Admin: 11/18/17 09:25 Dose: 750 mg Magnesium Sulfate (Magnesium Sulfate) 1 gm IVPB ONCE ONE Stop: 11/18/17 10:26 Methadone HCl (Dolophine -) 10 mg PO DAILY [facility] Stop: 11/20/17 10:01 Methadone HCl (Dolophine -) 15 mg PO DAILY [facility] Stop: 11/19/17 10:01 Last Admin: 11/18/17 09:24 Dose: 15 mg Methadone HCl (Dolophine -) 5 mg PO DAILY@0600 [facility] Stop: 11/21/17 06:01 Mupirocin (Bactroban Ointment (For Decolonization) -) 1 applic NS BID [facility] Stop: 11/20/17 21:59 Last Admin: 11/18/17 09:28 Dose: 1 applic Ondansetron HCl (Zofran Injection) 4 mg IVPUSH Q6H PRN PRN Reason: NAUSEA Multivit/Folic Acid/Iron ( Vitamins (Sjr) -) 1 tab PO DAILY [facility] Last Admin: 11/18/17 09:25 Dose: 1 tab Thiamine HCl (Vitamin B1 -) 100 mg PO HS [facility] Last Admin: 11/17/17 21:54 Dose: 100 mg - Objective Vital Signs: Vital Signs Temperature 36.8 C 11/18/17 02:00 Pulse Rate 65 11/18/17 02:00 Respiratory Rate 19 11/18/17 02:00 Blood Pressure 115/48 11/18/17 02:00 O2 Sat by Pulse Oximetry (%) 99 11/17/17 22:00 Labs: CBC, BMP 11/18/17 05:33 11/18/17 05:33 INR, PTT INR 1.23 (0.82-1.09) H 11/15/17 07:50 Problem List - Problems (1) Respiratory failure Code(s): J96.90 - RESPIRATORY FAILURE, UNSP, UNSP W HYPOXIA OR HYPERCAPNIA Qualifiers: Chronicity: acute Respiratory failure complication: hypoxia Qualified Code(s): J96.01 - Acute respiratory failure with hypoxia (2) Heroin overdose Code(s): T40.1X1A - POISONING BY HEROIN, ACCIDENTAL (UNINTENTIONAL), INIT ENCNTR Qualifiers: Encounter type: initial encounter Injury intent: accidental or unintentional Qualified Code(s): T40.1X1A - Poisoning by heroin, accidental ( unintentional), initial encounter (3) Toxic encephalopathy Code(s): G92 - TOXIC ENCEPHALOPATHY (4) Aspiration into airway Code(s): T17.908A - UNSP FB IN RESP TRACT, PART UNSP CAUSING OTH INJURY, INIT Qualifiers: Encounter type: initial encounter Qualified Code(s): T17.908A - Unspecified foreign body in respiratory tract, part unspecified causing other injury, initial encounter (5) Lactic acidosis Code(s): E87.2 - ACIDOSIS (6) Seizure Code(s): R56.9 - UNSPECIFIED CONVULSIONS (7) Troponin level elevated Code(s): R74.8 - ABNORMAL LEVELS OF OTHER SERUM ENZYMES (8) JEFFREY (acute kidney injury) Code(s): N17.9 - ACUTE KIDNEY FAILURE, UNSPECIFIED Assessment/Plan (1) Respiratory failure Assessment/Plan: -secondary to heroin overdose -resolved -stop oxygen, place on room air Code(s): J96.90 - RESPIRATORY FAILURE, UNSP, UNSP W HYPOXIA OR HYPERCAPNIA Qualifiers: Chronicity: acute Respiratory failure complication: hypoxia Qualified Code(s): J96.01 - Acute respiratory failure with hypoxia (2) Heroin overdose with addiction and withdrawal Assessment/Plan: -continue methadone taper and valium taper -stop ambien and baclofen Code(s): T40.1X1A - POISONING BY HEROIN, ACCIDENTAL (UNINTENTIONAL), INIT ENCNTR Qualifiers: Encounter type: initial encounter Injury intent: accidental or unintentional Qualified Code(s): T40.1X1A - Poisoning by heroin, accidental ( unintentional), initial encounter (3) Toxic encephalopathy Assessment/Plan: -resolved Code(s): G92 - TOXIC ENCEPHALOPATHY (4) Aspiration into airway Assessment/Plan: -Dr Alexander following -vancomycin discontinued -continue zosyn -Dr Alexander to see and determine length of IV antibiotics Code(s): T17.908A - UNSP FB IN RESP TRACT, PART UNSP CAUSING OTH INJURY, INIT Qualifiers: Encounter type: initial encounter Qualified Code(s): T17.908A - Unspecified foreign body in respiratory tract, part unspecified causing other injury, initial encounter (5) Lactic acidosis Assessment/Plan: -resolved Code(s): E87.2 - ACIDOSIS (6) Seizure Assessment/Plan: -continue keppra Code(s): R56.9 - UNSPECIFIED CONVULSIONS (7) Troponin level elevated Assessment/Plan -resolved Code(s): R74.8 - ABNORMAL LEVELS OF OTHER SERUM ENZYMES (8) JEFFREY (acute kidney injury) Assessment/Plan: -resolved -stop IVF Code(s): N17.9 - ACUTE KIDNEY FAILURE, UNSPECIFIED (9) Hypomagnesemia -replace with IV magnesium (10) Hypotension -will stop clonidine secondary to hypotension -methadone and valium should be sufficient for withdrawal symptoms
--- NOTE | 2017-11-18 10:52 | PN ---
Progress Note (short form) - Note Progress Note: s: no cp, sob, palps, dizzy o: Vital Signs Period Temp Pulse Resp BP Sys/Velasquez Pulse Ox Last 24 Hr 98 F-98.5 F 65-76 16-19 95-115/48-77 99-99 NAD, anxious JVD flat, neck supple ctab, nl effort rrr nl s1, s2 no m/r/g + bs soft nt nd. no le e/c/c aaox3 no jaundice, diaphoresis Current Medications Generic Name Dose Route Start Last Admin Trade Name Freq PRN Reason Stop Dose Admin Acetaminophen 650 mg 11/16/17 12:16 Tylenol - PO Q4H PRN PAIN OR FEVER Baclofen 10 mg 11/16/17 14:00 11/18/17 05:44 Lioresal - PO 10 mg TID [facility] Administration Chlorhexidine Gluconate 1 applic 11/16/17 22:00 11/17/17 21:59 Hibiclens For Decolonization - TP 11/20/17 21:59 Not Given HS [facility] Diazepam 5 mg 11/18/17 10:00 11/18/17 09:25 Valium - PO 11/19/17 22:01 5 mg BID [facility] Administration Diazepam 5 mg 11/20/17 10:00 Valium - PO 11/20/17 10:01 DAILY [facility] Sodium Chloride 1,000 mls @ 100 mls/hr 11/16/17 12:16 11/18/17 00:00 Normal Saline - IV 100 mls/hr ASDIR [facility] Administration Piperacillin Sod/Tazobactam 100 mls @ 200 mls/hr 11/16/17 18:00 11/18/17 09: 38 Sod 3.375 gm/ Dextrose IVPB 200 mls/hr Q8H-IV [facility] Administration Lactobacillus Acidophilus 1 tab 11/17/17 10:00 11/18/17 09:25 Bacid - PO 1 tab DAILY [facility] Administration Levetiracetam 750 mg 11/16/17 22:00 11/18/17 09:25 Keppra - PO 750 mg BID [facility] Administration Magnesium Sulfate 1 gm 11/18/17 10:25 Magnesium Sulfate IVPB 11/18/17 10:26 ONCE ONE Methadone HCl 10 mg 11/20/17 10:00 Dolophine - PO 11/20/17 10:01 DAILY [facility] Methadone HCl 15 mg 11/18/17 10:00 11/18/17 09:24 Dolophine - PO 11/19/17 10:01 15 mg DAILY [facility] Administration Methadone HCl 5 mg 11/21/17 06:00 Dolophine - PO 11/21/17 06:01 DAILY@0600 [facility] Mupirocin 1 applic 11/16/17 22:00 11/18/17 09:28 Bactroban Ointment (For Decolonization) - NS 11/20/17 21:59 1 applic BID [facility] Administration Ondansetron HCl 4 mg 11/16/17 12:16 Zofran Injection IVPUSH Q6H PRN NAUSEA Multivit/Folic Acid/Iron 1 tab 11/17/17 10:00 11/18/17 09:25 Vitamins (Sjr) - PO 1 tab DAILY [facility] Administration Thiamine HCl 100 mg 11/16/17 22:00 11/17/17 21:54 Vitamin B1 - PO 100 mg HS [facility] Administration CBC, BMP 11/18/17 05:33 11/18/17 05:33 EKG: sinus tach, 159 bpm. short pr interval. no ischemic changes. tele: sr chest cta: no PE. extensive patchy consolidatoin of poterior upper and lower lobes bilaterally c/w bilateral pna. prominent lymphadenopathy head ct: no acute pathology echo 04/2016: nl lv/rv size/fn. nl valves. no rvsp. echo 11/2017: nl lv/rv, no sig valve path A/P 22 yo smoker with h/o heroin/benzodiazepine/etoh abuse (no ivdu) and seizure who presents in respiratory arrest s/p heroin overdose, hospital course c/b extensive pna (asp?), rhabody and troponin elevation. Abnormal troponins - sx's of cp are pleuritic and c/w diagnosis of extensive bilateral pna, not c/ w anginal pain. - borderline troponin elevation likely demand in the setting of respiratory arrest/hypoxia and subsequent tachycardia. Likely also magnified by rhabdo (ck up to 3000), +/- seizure (h/o prior seizure in setting of substance use). Echo unremarkable. No suspicion for ACS. LE pain/edema - s/p fall. ct neg for PE. eval/mgm't per pmd asp pna/new thrombocytopenia - per pmd + tobacco/polysubstance use - cessation counseling. detox consult following. dc tele
[2017-11-18] MEDS ORDERED: MAGNESIUM SULF 50% (8.12 MEQ/2 ML-1 GM VIAL) IVPB ONE (12:00)
--- NOTE | 2017-11-18 13:16 | PN ---
Progress Note, Physician History of Present Illness: continues to do better no issues still sleeping a lot - Current Medication List Current Medications: Active Medications Acetaminophen (Tylenol -) 650 mg PO Q4H PRN PRN Reason: PAIN OR FEVER Baclofen (Lioresal -) 10 mg PO TID [facility] Last Admin: 11/18/17 05:44 Dose: 10 mg Chlorhexidine Gluconate (Hibiclens For Decolonization -) 1 applic TP HS [facility] Stop: 11/20/17 21:59 Last Admin: 11/17/17 21:59 Dose: Not Given Diazepam (Valium -) 5 mg PO BID [facility] Stop: 11/19/17 22:01 Last Admin: 11/18/17 09:25 Dose: 5 mg Diazepam (Valium -) 5 mg PO DAILY [facility] Stop: 11/20/17 10:01 Sodium Chloride (Normal Saline -) 1,000 mls @ 100 mls/hr IV ASDIR [facility] Last Admin: 11/18/17 00:00 Dose: 100 mls/hr Piperacillin Sod/Tazobactam (Sod 3.375 gm/ Dextrose) 100 mls @ 200 mls/hr IVPB Q8H-IV [facility] Last Admin: 11/18/17 09:38 Dose: 200 mls/hr Lactobacillus Acidophilus (Bacid -) 1 tab PO DAILY [facility] Last Admin: 11/18/17 09:25 Dose: 1 tab Levetiracetam (Keppra -) 750 mg PO BID [facility] Last Admin: 11/18/17 09:25 Dose: 750 mg Methadone HCl (Dolophine -) 10 mg PO DAILY [facility] Stop: 11/20/17 10:01 Methadone HCl (Dolophine -) 15 mg PO DAILY [facility] Stop: 11/19/17 10:01 Last Admin: 11/18/17 09:24 Dose: 15 mg Methadone HCl (Dolophine -) 5 mg PO DAILY@0600 [facility] Stop: 11/21/17 06:01 Mupirocin (Bactroban Ointment (For Decolonization) -) 1 applic NS BID [facility] Stop: 11/20/17 21:59 Last Admin: 11/18/17 09:28 Dose: 1 applic Ondansetron HCl (Zofran Injection) 4 mg IVPUSH Q6H PRN PRN Reason: NAUSEA Multivit/Folic Acid/Iron ( Vitamins (Sjr) -) 1 tab PO DAILY [facility] Last Admin: 11/18/17 09:25 Dose: 1 tab Thiamine HCl (Vitamin B1 -) 100 mg PO [facility] Last Admin: 11/17/17 21:54 Dose: 100 mg - Objective Vital Signs: Vital Signs Temperature 98.6 F 11/18/17 13:00 Pulse Rate 68 11/18/17 13:00 Respiratory Rate 19 11/18/17 13:00 Blood Pressure 119/76 11/18/17 13:00 O2 Sat by Pulse Oximetry (%) 99 11/18/17 09:00 Constitutional: Yes: No Distress, Calm Cardiovascular: Yes: Regular Rate and Rhythm Respiratory: Yes: Regular, CTA Bilaterally Gastrointestinal: Yes: Normal Bowel Sounds, Soft Musculoskeletal: Yes: WNL Extremities: Yes: WNL Neurological: Yes: Alert Psychiatric: Yes: Alert Labs: CBC, BMP 11/18/17 05:33 11/18/17 05:33 INR, PTT INR 1.23 (0.82-1.09) H 11/15/17 07:50 Assessment/Plan Problem List - Problems (1) Respiratory failure Code(s): J96.90 - RESPIRATORY FAILURE, UNSP, UNSP W HYPOXIA OR HYPERCAPNIA Qualifiers: Chronicity: acute Respiratory failure complication: hypoxia Qualified Code(s): J96.01 - Acute respiratory failure with hypoxia (2) Heroin overdose Code(s): T40.1X1A - POISONING BY HEROIN, ACCIDENTAL (UNINTENTIONAL), INIT ENCNTR Qualifiers: Encounter type: initial encounter Injury intent: accidental or unintentional Qualified Code(s): T40.1X1A - Poisoning by heroin, accidental ( unintentional), initial encounter (3) Toxic encephalopathy Code(s): G92 - TOXIC ENCEPHALOPATHY (4) Aspiration into airway Code(s): T17.908A - UNSP FB IN RESP TRACT, PART UNSP CAUSING OTH INJURY, INIT Qualifiers: Encounter type: initial encounter Qualified Code(s): T17.908A - Unspecified foreign body in respiratory tract, part unspecified causing other injury, initial encounter (5) Lactic acidosis Code(s): E87.2 - ACIDOSIS (6) Seizure Code(s): R56.9 - UNSPECIFIED CONVULSIONS (7) Troponin level elevated Code(s): R74.8 - ABNORMAL LEVELS OF OTHER SERUM ENZYMES (8) JEFFREY (acute kidney injury) Code(s): N17.9 - ACUTE KIDNEY FAILURE, UNSPECIFIED looking at the patient he looks stbale,no arevalo iv seen on the body will figure out tomorrow if patient uses iv drugs looking at the imaging studies there is some suspicion of pna plan will stop vanco if continues to be stable gabriel top zosyn tomorrow
--- NOTE | 2017-11-18 19:06 | PN ---
[facility] Progress Note (SOAP) Subjective: pateint comfortabel still in ICU with mother at bedside, wants out patient care for follow up considering suboxone maintenance after detox Objective: 11/19/17 16:44 Vital Signs - 24 hr 11/18/17 11/18/17 11/19/17 21:00 22:00 01:47 Temperature 98.9 F Pulse Rate 67 80 Respiratory 19 19 18 Rate Blood Pressure 107/59 111/72 O2 Sat by Pulse Oximetry (%) 11/19/17 11/19/17 11/19/17 05:09 09:00 14:24 Temperature 98.7 F 98 F Pulse Rate 87 84 Respiratory 18 20 20 Rate Blood Pressure 118/62 114/60 O2 Sat by Pulse 97 Oximetry (%) Laboratory Results - last 24 hr 11/16/17 11/19/17 11/19/17 09:40 05:00 05:00 WBC 8.4 RBC 4.69 Hgb 12.7 Hct 38.4 MCV 81.8 MCH 27.1 MCHC 33.1 RDW 14.2 Plt Count 185 D MPV 9.4 Neutrophils % 63.4 Lymphocytes % 21.0 Monocytes % 11.6 H Eosinophils % 3.7 Basophils % 0.3 Sodium 141 Potassium 4.0 Chloride 105 Carbon Dioxide 28 Anion Gap 8 BUN 10 Creatinine 0.9 Random Glucose 80 Calcium 7.8 L Phosphorus 4.4 D Magnesium 1.9 Levetiracetam 2.0 L Assessment: 11/19/17 16:45 opioid and sedative withdrawal- cont detox, consdier suboxone induction during hospitalization after he finishes detox, will need to find provider to refer to for aftercare if he is started onsubxoone. Patient and mother aware. pneumoni treatment s per primary team 11/19/17 16:46 kiki Syed mD [phone]
[2017-11-18] MEDS: THIAMINE HCL 100 MG TABLET (FP) PO SCH (21:24)
[2017-11-18] MEDS: CHLORHEXIDINE GLUCONATE 4% CLEANSER FOR DECOLONIZATION TP SCH (21:25)
[2017-11-18] MEDS: ZOLPIDEM TARTRATE 5 MG TABLET PO PRN (22:00)
[2017-11-19] MEDS: SODIUM CHLORIDE 1,000 ML IV SCH (02:02)
[2017-11-19] MEDS: PIPERACILLIN/TAZOB 3.375 GM 3.375 GM in DEXTROSE 5%-WATER - 100 ML IVPB SCH ×3 (02:02→10:00)
[2017-11-19] MEDS: BACLOFEN 10 MG TABLET (FP) PO SCH ×3 (05:07→22:08)
[2017-11-19 06:15] LABS: BASO % 0.3 % (0-2.0); EOS % 3.7 % (0-4.5); HEMATOCRIT 38.4 % (35.4-49); HEMOGLOBIN 12.7 GM/dL (11.7-16.9); MCH 27.1 pg (25.7-33.7); MCHC 33.1 g/dl (32.0-35.9); MEAN CELL VOLUME 81.8 fl (80-96); MEAN PLT VOLUME 9.4 fl (7.5-11.1); MONO % 11.6 % (3.8-10.2); NEUT % 63.4 % (42.8-82.8); PLATELET COUNT 185 K/MM3 (134-434); RBC 4.69 M/mm3 (4.00-5.60); RDW 14.2 % (11.9-15.9); WHITE BLOOD COUNT 8.4 K/mm3 (4.0-10.0)
[2017-11-19 06:44] LABS: CHLORIDE 105 mmol/L (98-107); SODIUM 141 mmol/L (136-145)
[2017-11-19 06:58] LABS: ANION GAP 8 (8-16); BLOOD UREA NITROGEN 10 mg/dL (7-18); CALCIUM 7.8 mg/dL (8.5-10.1); CO2 28 mmol/L (21-32); CREATININE 0.9 mg/dL (0.7-1.3); GLUCOSE,RANDOM 80 mg/dL (74-106); MAGNESIUM 1.9 mg/dL (1.8-2.4); PHOSPHOROUS 4.4 mg/dL (2.5-4.9)
[2017-11-19] MEDS ORDERED: PT OWN MED DRAWER 7, Y5N ONE (09:33)
--- NOTE | 2017-11-19 09:37 | PN ---
Progress Note (short form) - Note Progress Note: Neurology History of Present Illness: 22 year old male, known to me from the office, who was brought in after being found down at home. He states that he was using heroin and xanax. He stated he was inhaling heroin night prior to admission, previous use was two weeks ago. He was found to be hypoxic and was placed on bipap at home when he was found by his mom. Brought to the hospital for further mgmt. Of note, Utox positive for Opiates, Benzos, and MJ. Ct head completed and did not show acute changes. CT chest reviewed and no embolus but suspicious for PNA. I've had multiple conversations with him in the past regarding substance abuse. He previously presented for seizures but this more consistent with drug overdose. Echo completed and reviewed and demonstrated normal LV function and thickness. He was downgraded to tele and had conversation with him and mother in detail again today. Encouraged him to seek treatment, inpatient program if possible. He committed to outpatient treatment and agreed if outpatient didn't work that we would pursue inpatient. Mother concerned that patient chose suboxone instead of methadone as she feels with suboxone he could use heroin again and would not be as potentially devastating as with methadone. Recommended they have further conversation with S specialist and determining risk/benefit. Patient feels better today, more awake and alert. Conversive today. Antibiotic hanging at bedside, Maxine and Magdalena. Active Medications Acetaminophen (Tylenol -) 650 mg PO Q4H PRN PRN Reason: PAIN OR FEVER Baclofen (Lioresal -) 10 mg PO TID [facility] Last Admin: 11/19/17 05:07 Dose: 10 mg Chlorhexidine Gluconate (Hibiclens For Decolonization -) 1 applic TP HS [facility] Stop: 11/20/17 21:59 Last Admin: 11/18/17 21:25 Dose: Not Given Diazepam (Valium -) 5 mg PO BID [facility] Stop: 11/19/17 22:01 Last Admin: 11/18/17 21:26 Dose: 5 mg Diazepam (Valium -) 5 mg PO DAILY [facility] Stop: 11/20/17 10:01 Sodium Chloride (Normal Saline -) 1,000 mls @ 100 mls/hr IV ASDIR [facility] Last Admin: 11/19/17 02:02 Dose: 100 mls/hr Piperacillin Sod/Tazobactam (Sod 3.375 gm/ Dextrose) 100 mls @ 200 mls/hr IVPB Q8H-IV [facility] Last Admin: 11/19/17 02:02 Dose: 200 mls/hr Lactobacillus Acidophilus (Bacid -) 1 tab PO DAILY [facility] Last Admin: 11/18/17 09:25 Dose: 1 tab Levetiracetam (Keppra -) 750 mg PO BID [facility] Last Admin: 11/18/17 21:25 Dose: 750 mg Methadone HCl (Dolophine -) 10 mg PO DAILY [facility] Stop: 11/20/17 10:01 Methadone HCl (Dolophine -) 15 mg PO DAILY [facility] Stop: 11/19/17 10:01 Last Admin: 11/18/17 09:24 Dose: 15 mg Methadone HCl (Dolophine -) 5 mg PO DAILY@0600 [facility] Stop: 11/21/17 06:01 Mupirocin (Bactroban Ointment (For Decolonization) -) 1 applic NS BID [facility] Stop: 11/20/17 21:59 Last Admin: 11/18/17 21:25 Dose: Not Given Ondansetron HCl (Zofran Injection) 4 mg IVPUSH Q6H PRN PRN Reason: NAUSEA Multivit/Folic Acid/Iron ( Vitamins (Sjr) -) 1 tab PO DAILY [facility] Last Admin: 11/18/17 09:25 Dose: 1 tab Thiamine HCl (Vitamin B1 -) 100 mg PO HS [facility] Last Admin: 11/18/17 21:24 Dose: 100 mg Zolpidem Tartrate (Ambien -) 10 mg PO HS PRN PRN Reason: INSOMNIA Last Admin: 11/18/17 22:00 Dose: 10 mg Physical Examination Vital Signs Temperature 98.7 F 11/19/17 05:09 Pulse Rate 87 11/19/17 05:09 Respiratory Rate 18 11/19/17 05:09 Blood Pressure 118/62 11/19/17 05:09 O2 Sat by Pulse Oximetry (%) 100 11/18/17 10:40 Constitutional: Yes: Awake and alert, conversive today Eyes: Yes: Conjunctiva Clear HENT: Yes: Atraumatic, Normocephalic Cardiovascular: Yes: Tachycardia. No: Pulse Irregular, Gallop, Murmur, Rub Respiratory: Yes: On BiPap, Rhonchi, Tachypnea, Wheezes. No: Regular, CTA Bilaterally Gastrointestinal: Yes: Normal Bowel Sounds, Soft. No: Distention, Tenderness Extremities: Yes: Erythema (LLE) Edema: No Neuro: Awake, alert, fatigued appearing, CN intact, moving all ext equally, sensory intact, gait deferred Labs: CBCD WBC 8.4 K/mm3 (4.0-10.0) 11/19/17 05:00 RBC 4.69 M/mm3 (4.00-5.60) 11/19/17 05:00 Hgb 12.7 GM/dL (11.7-16.9) 11/19/17 05:00 Hct 38.4 % (35.4-49) 11/19/17 05:00 MCV 81.8 fl (80-96) 11/19/17 05:00 MCHC 33.1 g/dl (32.0-35.9) 11/19/17 05:00 RDW 14.2 % (11.9-15.9) 11/19/17 05:00 Plt Count 185 K/MM3 (134-434) D 11/19/17 05:00 MPV 9.4 fl (7.5-11.1) 11/19/17 05:00 CMP Sodium 141 mmol/L (136-145) 11/19/17 05:00 Potassium 4.0 mmol/L (3.5-5.1) 11/19/17 05:00 Chloride 105 mmol/L (98-107) 11/19/17 05:00 Carbon Dioxide 28 mmol/L (21-32) 11/19/17 05:00 Anion Gap 8 (8-16) 11/19/17 05:00 BUN 10 mg/dL (7-18) 11/19/17 05:00 Creatinine 0.9 mg/dL (0.7-1.3) 11/19/17 05:00 Creat Clearance w eGFR 55.38 (>60) 11/15/17 07:50 Calcium 7.8 mg/dL (8.5-10.1) L 11/19/17 05:00 Total Bilirubin 0.3 mg/dL (0.2-1.0) 11/15/17 07:50 AST 30 U/L (15-37) 11/15/17 07:50 ALT 26 U/L (12-78) 11/15/17 07:50 Alkaline Phosphatase 101 U/L (45-117) 11/15/17 07:50 Total Protein 6.6 g/dl (6.4-8.2) 11/15/17 07:50 Albumin 4.2 g/dl (3.4-5.0) 11/15/17 07:50 Imaging - Results Chest X-ray: Report Reviewed, Image Reviewed Cat Scan, Head: Report Reviewed Problem List 22 year old male, known to me from the office, who was brought in after being found down at home. He states that he was using heroin and xanax. He states he was inhaling heroin night prior to admission, previous use was two weeks ago. He was found to be hypoxic and was placed on bipap at home when he was found by his mom. Brought to the hospital for further mgmt. Of note, Utox positive for Opiates, Benzos, and MJ. Ct head completed and did not show acute changes. CT chest reviewed and no embolus but suspicious for PNA. I've had multiple conversations with him in the past regarding substance abuse. He previously presented for seizures but this more consistent with drug overdose. -Follow up regarding detox/counciling, on methadone -Follow up regarding possible PNA -Continue keppra at home dose, does not require adjustment, restarted -Events more consistent with overdose -Mental status improving, more alert and awake and conversive with me today -Continue monitoring respiratory status, improved -Hydration as required -On IV Abx still -Seizure precautions -Conversation with patient and mother about treatment plan -Agreed to outpatient treatment
[2017-11-19] MEDS: LACTOBACILLUS ACIDOPHILUS 1 EACH TAB (FP) PO SCH (09:43)
[2017-11-19] MEDS: MUPIROCIN 2% TOPICAL OINTMENT FOR DECOLONIZATION NS SCH ×2 (09:43→21:25)
[2017-11-19] MEDS: levETIRAcetam 500 MG TABLET (FP) PO SCH ×2 (09:44→21:24)
[2017-11-19] MEDS: METHADONE HCL 5 MG TABLET PO SCH (09:44)
[2017-11-19] MEDS: diazePAM 5 MG TABLET PO SCH ×2 (09:44→21:25)
[2017-11-19] MEDS: PRENATAL VITAMINS W/ FOLIC ACID TABLET (FP) PO SCH (09:45)
--- NOTE | 2017-11-19 11:23 | PN ---
Progress Note, Physician Chief Complaint: Mr Yinka Hayden denies cp, sob, n/v. Is having dyspnea on exertion but improving. - Current Medication List Current Medications: Active Medications Acetaminophen (Tylenol -) 650 mg PO Q4H PRN PRN Reason: PAIN OR FEVER Baclofen (Lioresal -) 10 mg PO TID [facility] Last Admin: 11/19/17 05:07 Dose: 10 mg Chlorhexidine Gluconate (Hibiclens For Decolonization -) 1 applic TP HS [facility] Stop: 11/20/17 21:59 Last Admin: 11/18/17 21:25 Dose: Not Given Diazepam (Valium -) 5 mg PO BID [facility] Stop: 11/19/17 22:01 Last Admin: 11/19/17 09:44 Dose: 5 mg Diazepam (Valium -) 5 mg PO DAILY [facility] Stop: 11/20/17 10:01 Sodium Chloride (Normal Saline -) 1,000 mls @ 100 mls/hr IV ASDIR [facility] Last Admin: 11/19/17 02:02 Dose: 100 mls/hr Piperacillin Sod/Tazobactam (Sod 3.375 gm/ Dextrose) 100 mls @ 200 mls/hr IVPB Q8H-IV [facility] Last Admin: 11/19/17 09:43 Dose: 200 mls/hr Lactobacillus Acidophilus (Bacid -) 1 tab PO DAILY [facility] Last Admin: 11/19/17 09:43 Dose: 1 tab Levetiracetam (Keppra -) 750 mg PO BID [facility] Last Admin: 11/19/17 09:44 Dose: 750 mg Methadone HCl (Dolophine -) 10 mg PO DAILY [facility] Stop: 11/20/17 10:01 Methadone HCl (Dolophine -) 5 mg PO DAILY@0600 [facility] Stop: 11/21/17 06:01 Mupirocin (Bactroban Ointment (For Decolonization) -) 1 applic NS BID [facility] Stop: 11/20/17 21:59 Last Admin: 11/19/17 09:43 Dose: Not Given Ondansetron HCl (Zofran Injection) 4 mg IVPUSH Q6H PRN PRN Reason: NAUSEA Multivit/Folic Acid/Iron ( Vitamins (Sjr) -) 1 tab PO DAILY [facility] Last Admin: 11/19/17 09:45 Dose: 1 tab Thiamine HCl (Vitamin B1 -) 100 mg PO HS [facility] Last Admin: 11/18/17 21:24 Dose: 100 mg Zolpidem Tartrate (Ambien -) 10 mg PO HS PRN PRN Reason: INSOMNIA Last Admin: 11/18/17 22:00 Dose: 10 mg - Objective Vital Signs: Vital Signs Temperature 37.1 C 11/19/17 05:09 Pulse Rate 87 11/19/17 05:09 Respiratory Rate 18 11/19/17 05:09 Blood Pressure 118/62 11/19/17 05:09 O2 Sat by Pulse Oximetry (%) 100 11/18/17 10:40 Constitutional: Yes: Well Nourished, No Distress, Calm Cardiovascular: Yes: Regular Rate and Rhythm. No: Gallop, Murmur, Rub Respiratory: Yes: Regular, CTA Bilaterally. No: Rales, Rhonchi, Wheezes Gastrointestinal: Yes: Normal Bowel Sounds, Soft. No: Distention, Tenderness Extremities: Yes: WNL Edema: No Labs: CBC, BMP 11/19/17 05:00 11/19/17 05:00 INR, PTT INR 1.23 (0.82-1.09) H 11/15/17 07:50 Problem List - Problems (1) Respiratory failure Code(s): J96.90 - RESPIRATORY FAILURE, UNSP, UNSP W HYPOXIA OR HYPERCAPNIA Qualifiers: Chronicity: acute Respiratory failure complication: hypoxia Qualified Code(s): J96.01 - Acute respiratory failure with hypoxia (2) Heroin overdose Code(s): T40.1X1A - POISONING BY HEROIN, ACCIDENTAL (UNINTENTIONAL), INIT ENCNTR Qualifiers: Encounter type: initial encounter Injury intent: accidental or unintentional Qualified Code(s): T40.1X1A - Poisoning by heroin, accidental ( unintentional), initial encounter (3) Toxic encephalopathy Code(s): G92 - TOXIC ENCEPHALOPATHY (4) Aspiration into airway Code(s): T17.908A - UNSP FB IN RESP TRACT, PART UNSP CAUSING OTH INJURY, INIT Qualifiers: Encounter type: initial encounter Qualified Code(s): T17.908A - Unspecified foreign body in respiratory tract, part unspecified causing other injury, initial encounter (5) Lactic acidosis Code(s): E87.2 - ACIDOSIS (6) Seizure Code(s): R56.9 - UNSPECIFIED CONVULSIONS (7) Troponin level elevated Code(s): R74.8 - ABNORMAL LEVELS OF OTHER SERUM ENZYMES (8) JEFFREY (acute kidney injury) Code(s): N17.9 - ACUTE KIDNEY FAILURE, UNSPECIFIED Assessment/Plan (1) Respiratory failure Assessment/Plan: -secondary to heroin overdose -resolved -stop oxygen, place on room air Code(s): J96.90 - RESPIRATORY FAILURE, UNSP, UNSP W HYPOXIA OR HYPERCAPNIA Qualifiers: Chronicity: acute Respiratory failure complication: hypoxia Qualified Code(s): J96.01 - Acute respiratory failure with hypoxia (2) Heroin overdose with addiction and withdrawal Assessment/Plan: -continue methadone taper and valium taper -addiction medicine following -agrees to outpatient rehab Code(s): T40.1X1A - POISONING BY HEROIN, ACCIDENTAL (UNINTENTIONAL), INIT ENCNTR Qualifiers: Encounter type: initial encounter Injury intent: accidental or unintentional Qualified Code(s): T40.1X1A - Poisoning by heroin, accidental ( unintentional), initial encounter (3) Toxic encephalopathy Assessment/Plan: -resolved Code(s): G92 - TOXIC ENCEPHALOPATHY (4) Aspiration into airway Assessment/Plan: -Dr Alexander following -vancomycin discontinued -continue zosyn -Dr Alexander to see and determine length of IV antibiotics Code(s): T17.908A - UNSP FB IN RESP TRACT, PART UNSP CAUSING OTH INJURY, INIT Qualifiers: Encounter type: initial encounter Qualified Code(s): T17.908A - Unspecified foreign body in respiratory tract, part unspecified causing other injury, initial encounter (5) Lactic acidosis Assessment/Plan: -resolved Code(s): E87.2 - ACIDOSIS (6) Seizure Assessment/Plan: -continue keppra Code(s): R56.9 - UNSPECIFIED CONVULSIONS (7) Troponin level elevated Assessment/Plan -resolved Code(s): R74.8 - ABNORMAL LEVELS OF OTHER SERUM ENZYMES (8) JEFFREY (acute kidney injury) Assessment/Plan: -resolved Code(s): N17.9 - ACUTE KIDNEY FAILURE, UNSPECIFIED (9) Hypomagnesemia -replaced (10) Hypotension -resolved off clonidine Dispo -encouraged patient to walk and sit in chair -discharge planning when transitioned over to oral antibiotics and detox finished
--- NOTE | 2017-11-19 18:48 | PN ---
Progress Note, Physician History of Present Illness: c/o of resp issues improving - Current Medication List Current Medications: Active Medications Acetaminophen (Tylenol -) 650 mg PO Q4H PRN PRN Reason: PAIN OR FEVER Baclofen (Lioresal -) 10 mg PO TID [facility] Last Admin: 11/19/17 14:23 Dose: 10 mg Chlorhexidine Gluconate (Hibiclens For Decolonization -) 1 applic TP HS [facility] Stop: 11/20/17 21:59 Last Admin: 11/18/17 21:25 Dose: Not Given Diazepam (Valium -) 5 mg PO BID [facility] Stop: 11/19/17 22:01 Last Admin: 11/19/17 09:44 Dose: 5 mg Diazepam (Valium -) 5 mg PO DAILY [facility] Stop: 11/20/17 10:01 Sodium Chloride (Normal Saline -) 1,000 mls @ 100 mls/hr IV ASDIR [facility] Last Admin: 11/19/17 02:02 Dose: 100 mls/hr Lactobacillus Acidophilus (Bacid -) 1 tab PO DAILY [facility] Last Admin: 11/19/17 09:43 Dose: 1 tab Levetiracetam (Keppra -) 750 mg PO BID [facility] Last Admin: 11/19/17 09:44 Dose: 750 mg Methadone HCl (Dolophine -) 10 mg PO DAILY [facility] Stop: 11/20/17 10:01 Methadone HCl (Dolophine -) 5 mg PO DAILY@0600 [facility] Stop: 11/21/17 06:01 Mupirocin (Bactroban Ointment (For Decolonization) -) 1 applic NS BID [facility] Stop: 11/20/17 21:59 Last Admin: 11/19/17 09:43 Dose: Not Given Ondansetron HCl (Zofran Injection) 4 mg IVPUSH Q6H PRN PRN Reason: NAUSEA Multivit/Folic Acid/Iron ( Vitamins (Sjr) -) 1 tab PO DAILY [facility] Last Admin: 11/19/17 09:45 Dose: 1 tab Thiamine HCl (Vitamin B1 -) 100 mg PO HS [facility] Last Admin: 11/18/17 21:24 Dose: 100 mg Zolpidem Tartrate (Ambien -) 10 mg PO HS PRN PRN Reason: INSOMNIA Last Admin: 11/18/17 22:00 Dose: 10 mg - Objective Vital Signs: Vital Signs Temperature 98 F 11/19/17 14:24 Pulse Rate 84 11/19/17 14:24 Respiratory Rate 20 11/19/17 14:24 Blood Pressure 114/60 11/19/17 14:24 O2 Sat by Pulse Oximetry (%) 95 11/19/17 18:21 Constitutional: Yes: Calm, Mild Distress Cardiovascular: Yes: Regular Rate and Rhythm Respiratory: Yes: Regular, Poor Air Entry Gastrointestinal: Yes: Normal Bowel Sounds, Soft Extremities: Yes: WNL Neurological: Yes: Alert Labs: CBC, BMP 11/19/17 05:00 11/19/17 05:00 INR, PTT INR 1.23 (0.82-1.09) H 11/15/17 07:50 Assessment/Plan Problem List - Problems (1) Respiratory failure Code(s): J96.90 - RESPIRATORY FAILURE, UNSP, UNSP W HYPOXIA OR HYPERCAPNIA Qualifiers: Chronicity: acute Respiratory failure complication: hypoxia Qualified Code(s): J96.01 - Acute respiratory failure with hypoxia (2) Heroin overdose Code(s): T40.1X1A - POISONING BY HEROIN, ACCIDENTAL (UNINTENTIONAL), INIT ENCNTR Qualifiers: Encounter type: initial encounter Injury intent: accidental or unintentional Qualified Code(s): T40.1X1A - Poisoning by heroin, accidental ( unintentional), initial encounter (3) Toxic encephalopathy Code(s): G92 - TOXIC ENCEPHALOPATHY (4) Aspiration into airway Code(s): T17.908A - UNSP FB IN RESP TRACT, PART UNSP CAUSING OTH INJURY, INIT Qualifiers: Encounter type: initial encounter Qualified Code(s): T17.908A - Unspecified foreign body in respiratory tract, part unspecified causing other injury, initial encounter (5) Lactic acidosis Code(s): E87.2 - ACIDOSIS (6) Seizure Code(s): R56.9 - UNSPECIFIED CONVULSIONS (7) Troponin level elevated Code(s): R74.8 - ABNORMAL LEVELS OF OTHER SERUM ENZYMES (8) JEFFREY (acute kidney injury) Code(s): N17.9 - ACUTE KIDNEY FAILURE, UNSPECIFIED looking at the patient he looks stbale,no arevalo iv seen on the body will figure out tomorrow if patient uses iv drugs looking at the imaging studies there is some suspicion of pna plan continue zosyn for now will see how his breathing is tomorrow and then decide
[2017-11-19] MEDS: THIAMINE HCL 100 MG TABLET (FP) PO SCH (21:24)
[2017-11-19] MEDS: CHLORHEXIDINE GLUCONATE 4% CLEANSER FOR DECOLONIZATION TP SCH (21:25)
[2017-11-19] MEDS: ZOLPIDEM TARTRATE 5 MG TABLET PO PRN (22:07)
[2017-11-20] MEDS ORDERED: PT OWN MED DRAWER 7, Y5N ONE ×2 (06:25→09:07)
[2017-11-20] MEDS: BACLOFEN 10 MG TABLET (FP) PO SCH (06:26)
[2017-11-20 06:31] LABS: BASO % 0.3 % (0-2.0); EOS % 3.5 % (0-4.5); HEMATOCRIT 41.1 % (35.4-49); HEMOGLOBIN 13.8 GM/dL (11.7-16.9); LYMPH % 29.6 % (8-40); MCH 27.4 pg (25.7-33.7); MCHC 33.5 g/dl (32.0-35.9); MEAN CELL VOLUME 81.8 fl (80-96); MEAN PLT VOLUME 8.9 fl (7.5-11.1); NEUT % 54.6 % (42.8-82.8); PLATELET COUNT 208 K/MM3 (134-434); RBC 5.02 M/mm3 (4.00-5.60)
[2017-11-20 06:58] LABS: ANION GAP 8 (8-16); BLOOD UREA NITROGEN 11 mg/dL (7-18); CALCIUM 9.1 mg/dL (8.5-10.1); CHLORIDE 103 mmol/L (98-107); CO2 28 mmol/L (21-32); CREATININE 0.9 mg/dL (0.7-1.3); GLUCOSE,RANDOM 84 mg/dL (74-106); PHOSPHOROUS 4.4 mg/dL (2.5-4.9); SODIUM 139 mmol/L (136-145)
[2017-11-20] MEDS ORDERED: ONDANSETRON 4 MG/2 ML VIAL IVPUSH PRN (07:17)
[2017-11-20] MEDS ORDERED: ACETAMINOPHEN 325 MG TABLET (FP) PO PRN (07:17)
[2017-11-20] MEDS ORDERED: MAGNESIUM 1GM/D5W 100ML - 100 ML IVPB IVPB ONE (09:00)
[2017-11-20] MEDS ORDERED: diazePAM 5 MG TABLET PO SCH ×2 (10:00)
[2017-11-20] MEDS ORDERED: METHADONE HCL 10 MG TABLET PO SCH ×2 (10:00)
[2017-11-20] MEDS: LACTOBACILLUS ACIDOPHILUS 1 EACH TAB (FP) PO SCH (10:26)
[2017-11-20] MEDS: levETIRAcetam 250 MG TABLET (FP) PO SCH ×2 (10:26→21:06)
[2017-11-20] MEDS: PRENATAL VITAMINS W/ FOLIC ACID TABLET (FP) PO SCH (10:30)
--- NOTE | 2017-11-20 12:20 | PN ---
Progress Note, Physician History of Present Illness: pulmonary alert,feeling better,-resp distress,+ mild cough - Current Medication List Current Medications: Active Medications Acetaminophen (Tylenol -) 650 mg PO Q4H PRN PRN Reason: PAIN OR FEVER Lactobacillus Acidophilus (Bacid -) 1 tab PO DAILY [facility] Last Admin: 11/20/17 10:26 Dose: 1 tab Levetiracetam (Keppra -) 750 mg PO BID [facility] Last Admin: 11/20/17 10:26 Dose: 750 mg Methadone HCl (Dolophine -) 5 mg PO DAILY@0600 [facility] Stop: 11/21/17 06:01 Ondansetron HCl (Zofran Injection) 4 mg IVPUSH Q6H PRN PRN Reason: NAUSEA Multivit/Folic Acid/Iron ( Vitamins (Sjr) -) 1 tab PO DAILY [facility] Last Admin: 11/20/17 10:30 Dose: 1 tab Thiamine HCl (Vitamin B1 -) 100 mg PO HS [facility] Zolpidem Tartrate (Ambien -) 10 mg PO HS PRN PRN Reason: INSOMNIA Last Admin: 11/19/17 22:07 Dose: 10 mg - Objective Vital Signs: Vital Signs Temperature 98.2 F 11/20/17 05:53 Pulse Rate 75 11/20/17 05:53 Respiratory Rate 18 11/20/17 05:53 Blood Pressure 102/68 11/20/17 05:53 O2 Sat by Pulse Oximetry (%) 98 11/19/17 20:01 Constitutional: Yes: Well Nourished, Calm Eyes: Yes: WNL HENT: Yes: WNL Neck: Yes: WNL Cardiovascular: Yes: Regular Rate and Rhythm, S1, S2 Respiratory: Yes: Rales (bilateral crackles 1/3 up) Gastrointestinal: Yes: Normal Bowel Sounds, Soft Extremities: Yes: WNL Edema: No Labs: CBC, BMP 11/20/17 06:15 11/20/17 06:15 INR, PTT INR 1.23 (0.82-1.09) H 11/15/17 07:50 Problem List - Problems (1) JEFFREY (acute kidney injury) Code(s): N17.9 - ACUTE KIDNEY FAILURE, UNSPECIFIED (2) Altered mental status Code(s): R41.82 - ALTERED MENTAL STATUS, UNSPECIFIED Qualifiers: Altered mental status type: disorientation Qualified Code(s): R41.0 - Disorientation, unspecified (3) Aspiration into airway Code(s): T17.908A - UNSP FB IN RESP TRACT, PART UNSP CAUSING OTH INJURY, INIT Qualifiers: Encounter type: initial encounter Qualified Code(s): T17.908A - Unspecified foreign body in respiratory tract, part unspecified causing other injury, initial encounter (4) Benzodiazepine (tranquilizer) overdose Code(s): T42.4X1A - POISONING BY BENZODIAZEPINES, ACCIDENTAL, INIT (5) Lactic acidosis Code(s): E87.2 - ACIDOSIS (6) Pneumonia Code(s): J18.9 - PNEUMONIA, UNSPECIFIED ORGANISM (7) Respiratory failure Code(s): J96.90 - RESPIRATORY FAILURE, UNSP, UNSP W HYPOXIA OR HYPERCAPNIA Qualifiers: Chronicity: acute Respiratory failure complication: hypoxia Qualified Code(s): J96.01 - Acute respiratory failure with hypoxia (8) Troponin level elevated Code(s): R74.8 - ABNORMAL LEVELS OF OTHER SERUM ENZYMES Assessment/Plan Assessment/Plan AMS in the setting of drug use/overdose (opiates, benzos, THC) s/p Hypoxemic respiratory failure in the setting of drug OD +/- aspiration pneumonitis vs PNA JEFFREY, ?hypovolemia vs rhabdo Troponin leak likely demand ischemia Elevated lactate Seizure disorder -chest x-ray -supplemental O2 as needed -O2 to maintain saturation - ABX as per ID -trend lactate -Shelbie ATKINSON
--- NOTE | 2017-11-20 13:19 | PN ---
Progress Note, Physician History of Present Illness: patient feeling better breathing better able to walk without feeling sob - Current Medication List Current Medications: Active Medications Acetaminophen (Tylenol -) 650 mg PO Q4H PRN PRN Reason: PAIN OR FEVER Amoxicillin/Clavulanate Potassium (Augmentin - 875mg Tablet) 1 tab PO BID@0800, 1730 [facility] Lactobacillus Acidophilus (Bacid -) 1 tab PO DAILY [facility] Last Admin: 11/20/17 10:26 Dose: 1 tab Levetiracetam (Keppra -) 750 mg PO BID [facility] Last Admin: 11/20/17 10:26 Dose: 750 mg Methadone HCl (Dolophine -) 5 mg PO DAILY@0600 [facility] Stop: 11/21/17 06:01 Ondansetron HCl (Zofran Injection) 4 mg IVPUSH Q6H PRN PRN Reason: NAUSEA Multivit/Folic Acid/Iron ( Vitamins (Sjr) -) 1 tab PO DAILY [facility] Last Admin: 11/20/17 10:30 Dose: 1 tab Thiamine HCl (Vitamin B1 -) 100 mg PO HS [facility] Zolpidem Tartrate (Ambien -) 10 mg PO HS PRN PRN Reason: INSOMNIA Last Admin: 11/19/17 22:07 Dose: 10 mg - Objective Vital Signs: Vital Signs Temperature 98.2 F 11/20/17 05:53 Pulse Rate 75 11/20/17 05:53 Respiratory Rate 18 11/20/17 05:53 Blood Pressure 102/68 11/20/17 05:53 O2 Sat by Pulse Oximetry (%) 98 11/19/17 20:01 Constitutional: Yes: No Distress, Calm Cardiovascular: Yes: Regular Rate and Rhythm Respiratory: Yes: Regular, CTA Bilaterally Gastrointestinal: Yes: Normal Bowel Sounds, Soft Musculoskeletal: Yes: WNL Extremities: Yes: WNL Neurological: Yes: Alert, Oriented Psychiatric: Yes: Alert, Oriented Labs: CBC, BMP 11/20/17 06:15 11/20/17 06:15 INR, PTT INR 1.23 (0.82-1.09) H 11/15/17 07:50 - ....Imaging Chest X-ray: Report Reviewed, Image Reviewed Assessment/Plan Problem List - Problems (1) Respiratory failure Code(s): J96.90 - RESPIRATORY FAILURE, UNSP, UNSP W HYPOXIA OR HYPERCAPNIA Qualifiers: Chronicity: acute Respiratory failure complication: hypoxia Qualified Code(s): J96.01 - Acute respiratory failure with hypoxia (2) Heroin overdose Code(s): T40.1X1A - POISONING BY HEROIN, ACCIDENTAL (UNINTENTIONAL), INIT ENCNTR Qualifiers: Encounter type: initial encounter Injury intent: accidental or unintentional Qualified Code(s): T40.1X1A - Poisoning by heroin, accidental ( unintentional), initial encounter (3) Toxic encephalopathy Code(s): G92 - TOXIC ENCEPHALOPATHY (4) Aspiration into airway Code(s): T17.908A - UNSP FB IN RESP TRACT, PART UNSP CAUSING OTH INJURY, INIT Qualifiers: Encounter type: initial encounter Qualified Code(s): T17.908A - Unspecified foreign body in respiratory tract, part unspecified causing other injury, initial encounter (5) Lactic acidosis Code(s): E87.2 - ACIDOSIS (6) Seizure Code(s): R56.9 - UNSPECIFIED CONVULSIONS (7) Troponin level elevated Code(s): R74.8 - ABNORMAL LEVELS OF OTHER SERUM ENZYMES (8) JEFFREY (acute kidney injury) Code(s): N17.9 - ACUTE KIDNEY FAILURE, UNSPECIFIED looking at the patient he looks stbale,no arevalo iv seen on the body will figure out tomorrow if patient uses iv drugs looking at the imaging studies there is some suspicion of pna plan will change abx to oral augmentin po bid incentive aracelis rest as per pul /primary team
[2017-11-20] MEDS: AMOX TR/POT CLAV 875MG/125MG TABLETS (FP) PO SCH (17:11)
[2017-11-20] MEDS: THIAMINE HCL 100 MG TABLET (FP) PO SCH (21:06)
[2017-11-20] MEDS: ZOLPIDEM TARTRATE 5 MG TABLET PO PRN (21:06)
--- NOTE | 2017-11-20 21:28 | PN ---
Progress Note, Physician Chief Complaint: Young man comfortable, not in distress - Current Medication List Current Medications: Active Medications Acetaminophen (Tylenol -) 650 mg PO Q4H PRN PRN Reason: PAIN OR FEVER Amoxicillin/Clavulanate Potassium (Augmentin - 875mg Tablet) 1 tab PO BID@0800, 1730 [facility] Last Admin: 11/20/17 17:11 Dose: 1 tab Lactobacillus Acidophilus (Bacid -) 1 tab PO DAILY [facility] Last Admin: 11/20/17 10:26 Dose: 1 tab Levetiracetam (Keppra -) 750 mg PO BID [facility] Last Admin: 11/20/17 21:06 Dose: 750 mg Methadone HCl (Dolophine -) 5 mg PO DAILY@0600 [facility] Stop: 11/21/17 06:01 Ondansetron HCl (Zofran Injection) 4 mg IVPUSH Q6H PRN PRN Reason: NAUSEA Multivit/Folic Acid/Iron ( Vitamins (Sjr) -) 1 tab PO DAILY [facility] Last Admin: 11/20/17 10:30 Dose: 1 tab Thiamine HCl (Vitamin B1 -) 100 mg PO HS [facility] Last Admin: 11/20/17 21:06 Dose: 100 mg Zolpidem Tartrate (Ambien -) 10 mg PO HS PRN PRN Reason: INSOMNIA Last Admin: 11/20/17 21:06 Dose: 10 mg - Objective Vital Signs: Vital Signs Temperature 97.6 F 11/20/17 18:39 Pulse Rate 91 H 11/20/17 18:39 Respiratory Rate 18 11/20/17 18:39 Blood Pressure 117/66 11/20/17 18:39 O2 Sat by Pulse Oximetry (%) 98 11/20/17 09:00 Young man not in distreess denies any chest pain or SOB HEENT: MM moist, no anemia, PERRLA EOMI NECK: No JVD No Bruit CHEST: Basal crepts CVS; S1S2 R ABD: No distention, non tender BS + EXT: no lyndsey afeet, no calf [employer]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 Code(s): T40.1X1A - POISONING BY HEROIN, ACCIDENTAL (UNINTENTIONAL), INIT ENCNTR (2) Altered mental status Assessment/Plan: Admitted with AMS secondary to narcotic overdose now improved Code(s): R41.82 - ALTERED MENTAL STATUS, UNSPECIFIED Qualifiers: Altered mental status type: disorientation Qualified Code(s): R41.0 - Disorientation, unspecified (3) Troponin level elevated Assessment/Plan: Type 2 VA secondary to Demand Ischemia. Code(s): R74.8 - ABNORMAL LEVELS OF OTHER SERUM ENZYMES (4) Seizure Code(s): R56.9 - UNSPECIFIED CONVULSIONS (5) Aspiration into airway Assessment/Plan: Due to altered mental status secondary to heroine over dose afebrile improving no desaturation on exertion. Code(s): T17.908A - UNSP FB IN RESP TRACT, PART UNSP CAUSING OTH INJURY, INIT (6) Seizures Assessment/Plan: Cont home meds Code(s): R56.9 - UNSPECIFIED CONVULSIONS (7) Respiratory failure Assessment/Plan: Due to Narcotics over dose improved. Code(s): J96.90 - RESPIRATORY FAILURE, UNSP, UNSP W HYPOXIA OR HYPERCAPNIA Qualifiers: Chronicity: acute Respiratory failure complication: hypoxia Qualified Code(s): J96.01 - Acute respiratory failure with hypoxia
[2017-11-21] MEDS ORDERED: METHADONE HCL 5 MG TABLET PO SCH ×2 (06:00)
[2017-11-21 06:38] LABS: BASO % 0.7 % (0-2.0); EOS % 4.6 % (0-4.5); HEMATOCRIT 44.6 % (35.4-49); HEMOGLOBIN 14.8 GM/dL (11.7-16.9); LYMPH % 36.1 % (8-40); MCHC 33.1 g/dl (32.0-35.9); MEAN CELL VOLUME 81.5 fl (80-96); MEAN PLT VOLUME 8.6 fl (7.5-11.1); MONO % 14.7 % (3.8-10.2); NEUT % 43.9 % (42.8-82.8); PLATELET COUNT 255 K/MM3 (134-434); RBC 5.48 M/mm3 (4.00-5.60); WHITE BLOOD COUNT 7.6 K/mm3 (4.0-10.0)
[2017-11-21 07:02] LABS: ANION GAP 4 (8-16); BLOOD UREA NITROGEN 18 mg/dL (7-18); CALCIUM 8.7 mg/dL (8.5-10.1); CHLORIDE 104 mmol/L (98-107); CO2 28 mmol/L (21-32); CREATININE 0.9 mg/dL (0.7-1.3); GLUCOSE,RANDOM 86 mg/dL (74-106); POTASSIUM 4.2 mmol/L (3.5-5.1); SODIUM 136 mmol/L (136-145)
[2017-11-21] MEDS: AMOX TR/POT CLAV 875MG/125MG TABLETS (FP) PO SCH ×2 (08:51→17:45)
[2017-11-21] MEDS ORDERED: PT OWN MED DRAWER 7, Y5N ONE (09:40)
[2017-11-21] MEDS: LACTOBACILLUS ACIDOPHILUS 1 EACH TAB (FP) PO SCH (09:48)
[2017-11-21] MEDS: levETIRAcetam 250 MG TABLET (FP) PO SCH ×2 (09:48→21:05)
[2017-11-21] MEDS: PRENATAL VITAMINS W/ FOLIC ACID TABLET (FP) PO SCH (09:48)
[2017-11-21] MEDS: BACLOFEN 10 MG TABLET (FP) PO SCH (11:09)
--- NOTE | 2017-11-21 11:55 | PN ---
Progress Note, Physician History of Present Illness: no complaints still not bale to take deep breath - Current Medication List Current Medications: Active Medications Acetaminophen (Tylenol -) 650 mg PO Q4H PRN PRN Reason: PAIN OR FEVER Amoxicillin/Clavulanate Potassium (Augmentin - 875mg Tablet) 1 tab PO BID@0800, 1730 [facility] Last Admin: 11/21/17 08:51 Dose: 1 tab Lactobacillus Acidophilus (Bacid -) 1 tab PO DAILY [facility] Last Admin: 11/21/17 09:48 Dose: 1 tab Levetiracetam (Keppra -) 750 mg PO BID [facility] Last Admin: 11/21/17 09:48 Dose: 750 mg Ondansetron HCl (Zofran Injection) 4 mg IVPUSH Q6H PRN PRN Reason: NAUSEA Multivit/Folic Acid/Iron ( Vitamins (Sjr) -) 1 tab PO DAILY [facility] Last Admin: 11/21/17 09:48 Dose: 1 tab Thiamine HCl (Vitamin B1 -) 100 mg PO HS [facility] Last Admin: 11/20/17 21:06 Dose: 100 mg Zolpidem Tartrate (Ambien -) 10 mg PO HS PRN PRN Reason: INSOMNIA Last Admin: 11/20/17 21:06 Dose: 10 mg - Objective Vital Signs: Vital Signs Temperature 97.9 F 11/21/17 09:10 Pulse Rate 71 11/21/17 09:10 Respiratory Rate 20 11/21/17 09:10 Blood Pressure 113/57 11/21/17 09:10 O2 Sat by Pulse Oximetry (%) 98 11/20/17 21:00 Constitutional: Yes: No Distress, Calm Neck: Yes: Supple Cardiovascular: Yes: Regular Rate and Rhythm Respiratory: Yes: Regular, Poor Air Entry (at the bases), Other (crackles) Gastrointestinal: Yes: Normal Bowel Sounds, Soft Musculoskeletal: Yes: WNL Extremities: Yes: WNL Neurological: Yes: Alert, Oriented Psychiatric: Yes: Alert Labs: CBC, BMP 11/21/17 06:25 11/21/17 06:25 INR, PTT INR 1.23 (0.82-1.09) H 11/15/17 07:50 Assessment/Plan Problem List - Problems (1) Respiratory failure Code(s): J96.90 - RESPIRATORY FAILURE, UNSP, UNSP W HYPOXIA OR HYPERCAPNIA Qualifiers: Chronicity: acute Respiratory failure complication: hypoxia Qualified Code(s): J96.01 - Acute respiratory failure with hypoxia (2) Heroin overdose Code(s): T40.1X1A - POISONING BY HEROIN, ACCIDENTAL (UNINTENTIONAL), INIT ENCNTR Qualifiers: Encounter type: initial encounter Injury intent: accidental or unintentional Qualified Code(s): T40.1X1A - Poisoning by heroin, accidental ( unintentional), initial encounter (3) Toxic encephalopathy Code(s): G92 - TOXIC ENCEPHALOPATHY (4) Aspiration into airway Code(s): T17.908A - UNSP FB IN RESP TRACT, PART UNSP CAUSING OTH INJURY, INIT Qualifiers: Encounter type: initial encounter Qualified Code(s): T17.908A - Unspecified foreign body in respiratory tract, part unspecified causing other injury, initial encounter (5) Lactic acidosis Code(s): E87.2 - ACIDOSIS (6) Seizure Code(s): R56.9 - UNSPECIFIED CONVULSIONS (7) Troponin level elevated Code(s): R74.8 - ABNORMAL LEVELS OF OTHER SERUM ENZYMES (8) JEFFREY (acute kidney injury) Code(s): N17.9 - ACUTE KIDNEY FAILURE, UNSPECIFIED looking at the patient he looks stbale,no arevalo iv seen on the body will figure out tomorrow if patient uses iv drugs looking at the imaging studies there is some suspicion of pna plan continue oral abx incentive aracelis rest as per pul and primary
--- NOTE | 2017-11-21 12:33 | PN ---
Progress Note, Physician Chief Complaint: Young man comfortable, not in distress - Current Medication List Current Medications: Active Medications Acetaminophen (Tylenol -) 650 mg PO Q4H PRN PRN Reason: PAIN OR FEVER Amoxicillin/Clavulanate Potassium (Augmentin - 875mg Tablet) 1 tab PO BID@0800, 1730 [facility] Last Admin: 11/21/17 08:51 Dose: 1 tab Lactobacillus Acidophilus (Bacid -) 1 tab PO DAILY [facility] Last Admin: 11/21/17 09:48 Dose: 1 tab Levetiracetam (Keppra -) 750 mg PO BID [facility] Last Admin: 11/21/17 09:48 Dose: 750 mg Ondansetron HCl (Zofran Injection) 4 mg IVPUSH Q6H PRN PRN Reason: NAUSEA Multivit/Folic Acid/Iron ( Vitamins (Sjr) -) 1 tab PO DAILY [facility] Last Admin: 11/21/17 09:48 Dose: 1 tab Thiamine HCl (Vitamin B1 -) 100 mg PO HS [facility] Last Admin: 11/20/17 21:06 Dose: 100 mg Zolpidem Tartrate (Ambien -) 10 mg PO HS PRN PRN Reason: INSOMNIA Last Admin: 11/20/17 21:06 Dose: 10 mg - Objective Vital Signs: Vital Signs Temperature 97.9 F 11/21/17 09:10 Pulse Rate 71 11/21/17 09:10 Respiratory Rate 20 11/21/17 09:10 Blood Pressure 113/57 11/21/17 09:10 O2 Sat by Pulse Oximetry (%) 98 11/20/17 21:00 Young man not in distreess denies any chest pain or SOB HEENT: MM moist, no anemia, PERRLA EOMI NECK: No JVD No Bruit CHEST: Basal crepts, decrese AE CVS; S1S2 R ABD: No distention, non tender BS + EXT: no lyndsey afeet, no calf 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 Code(s): T40.1X1A - POISONING BY HEROIN, ACCIDENTAL (UNINTENTIONAL), INIT ENCNTR (2) Altered mental status Assessment/Plan: Admitted with AMS secondary to narcotic overdose now improved Code(s): R41.82 - ALTERED MENTAL STATUS, UNSPECIFIED Qualifiers: Altered mental status type: disorientation Qualified Code(s): R41.0 - Disorientation, unspecified (3) Troponin level elevated Assessment/Plan: Type 2 MD secondary to Demand Ischemia. Code(s): R74.8 - ABNORMAL LEVELS OF OTHER SERUM ENZYMES (4) Seizure Code(s): R56.9 - UNSPECIFIED CONVULSIONS (5) Aspiration into airway Assessment/Plan: Due to altered mental status secondary to heroine over dose afebrile improving no desaturation on exertion, Rpt CXR no obvious infiltrates, on Po augmentin. Code(s): T17.908A - UNSP FB IN RESP TRACT, PART UNSP CAUSING OTH INJURY, INIT
--- NOTE | 2017-11-21 12:44 | PN ---
Progress Note, Physician History of Present Illness: pulmonary alert,nad,-sob,-cough.02 sat 100% oa post ambulation - Current Medication List Current Medications: Active Medications Acetaminophen (Tylenol -) 650 mg PO Q4H PRN PRN Reason: PAIN OR FEVER Amoxicillin/Clavulanate Potassium (Augmentin - 875mg Tablet) 1 tab PO BID@0800, 1730 [facility] Last Admin: 11/21/17 08:51 Dose: 1 tab Lactobacillus Acidophilus (Bacid -) 1 tab PO DAILY [facility] Last Admin: 11/21/17 09:48 Dose: 1 tab Levetiracetam (Keppra -) 750 mg PO BID [facility] Last Admin: 11/21/17 09:48 Dose: 750 mg Ondansetron HCl (Zofran Injection) 4 mg IVPUSH Q6H PRN PRN Reason: NAUSEA Multivit/Folic Acid/Iron ( Vitamins (Sjr) -) 1 tab PO DAILY [facility] Last Admin: 11/21/17 09:48 Dose: 1 tab Thiamine HCl (Vitamin B1 -) 100 mg PO HS [facility] Last Admin: 11/20/17 21:06 Dose: 100 mg Zolpidem Tartrate (Ambien -) 10 mg PO HS PRN PRN Reason: INSOMNIA Last Admin: 11/20/17 21:06 Dose: 10 mg - Objective Vital Signs: Vital Signs Temperature 97.9 F 11/21/17 09:10 Pulse Rate 71 11/21/17 09:10 Respiratory Rate 20 11/21/17 09:10 Blood Pressure 113/57 11/21/17 09:10 O2 Sat by Pulse Oximetry (%) 98 11/20/17 21:00 Constitutional: Yes: Well Nourished, Calm Eyes: Yes: WNL HENT: Yes: WNL Neck: Yes: WNL Cardiovascular: Yes: Regular Rate and Rhythm, S1, S2 Respiratory: Yes: CTA Bilaterally Gastrointestinal: Yes: Normal Bowel Sounds, Soft Extremities: Yes: WNL Edema: No Labs: CBC, BMP 11/21/17 06:25 11/21/17 06:25 INR, PTT INR 1.23 (0.82-1.09) H 11/15/17 07:50 - ....Imaging Chest X-ray: Report Reviewed, Image Reviewed (significant improvement katlin infiltrates) Problem List - Problems (1) JEFFREY (acute kidney injury) Code(s): N17.9 - ACUTE KIDNEY FAILURE, UNSPECIFIED (2) Altered mental status Code(s): R41.82 - ALTERED MENTAL STATUS, UNSPECIFIED Qualifiers: Altered mental status type: disorientation Qualified Code(s): R41.0 - Disorientation, unspecified (3) Aspiration into airway Code(s): T17.908A - UNSP FB IN RESP TRACT, PART UNSP CAUSING OTH INJURY, INIT Qualifiers: Encounter type: initial encounter Qualified Code(s): T17.908A - Unspecified foreign body in respiratory tract, part unspecified causing other injury, initial encounter (4) Benzodiazepine (tranquilizer) overdose Code(s): T42.4X1A - POISONING BY BENZODIAZEPINES, ACCIDENTAL, INIT (5) Lactic acidosis Code(s): E87.2 - ACIDOSIS (6) Pneumonia Code(s): J18.9 - PNEUMONIA, UNSPECIFIED ORGANISM (7) Respiratory failure Code(s): J96.90 - RESPIRATORY FAILURE, UNSP, UNSP W HYPOXIA OR HYPERCAPNIA Qualifiers: Chronicity: acute Respiratory failure complication: hypoxia Qualified Code(s): J96.01 - Acute respiratory failure with hypoxia (8) Troponin level elevated Code(s): R74.8 - ABNORMAL LEVELS OF OTHER SERUM ENZYMES Assessment/Plan Assessment/Plan AMS in the setting of drug use/overdose (opiates, benzos, THC) s/p Hypoxemic respiratory failure in the setting of drug OD +/- aspiration pneumonitis vs PNA JEFFREY, ?hypovolemia vs rhabdo Troponin leak likely demand ischemia Elevated lactate Seizure disorder -supplemental O2 as needed - abx as per id DR ATKINSON
[2017-11-21] MEDS ORDERED: INSULIN (NOVOLOG) ASPART 100 UNITS/ML 10ML VIAL ONE (19:46)
[2017-11-21] MEDS: ZOLPIDEM TARTRATE 5 MG TABLET PO PRN (21:05)
[2017-11-21] MEDS: THIAMINE HCL 100 MG TABLET (FP) PO SCH (21:05)
--- NOTE | 2017-11-22 09:34 | PN ---
Progress Note (short form) - Note Progress Note: Neurology History of Present Illness: 22 year old male, known to me from the office, who was brought in after being found down at home. He states that he was using heroin and xanax. He stated he was inhaling heroin night prior to admission, previous use was two weeks ago. He was found to be hypoxic and was placed on bipap at home when he was found by his mom. Brought to the hospital for further mgmt. Of note, Utox positive for Opiates, Benzos, and MJ. Ct head completed and did not show acute changes. CT chest reviewed and no embolus but suspicious for PNA. I've had multiple conversations with him in the past regarding substance abuse. He previously presented for seizures but this more consistent with drug overdose. Echo completed and reviewed and demonstrated normal LV function and thickness. He was downgraded to tele and had conversation with him and mother in detail again today. Encouraged him to seek treatment, inpatient program if possible. He committed to outpatient treatment and agreed if outpatient didn't work that we would pursue inpatient. Mother concerned that patient chose suboxone instead of methadone as she feels with suboxone he could use heroin again and would not be as potentially devastating as with methadone. Recommended they have further conversation with S specialist and determining risk/benefit. Patient feels better today, more awake and alert. Awaiting visit from development specialist and further conversation regarding inpatient vs outpatient treatment program. Active Medications Acetaminophen (Tylenol -) 650 mg PO Q4H PRN PRN Reason: PAIN OR FEVER Amoxicillin/Clavulanate Potassium (Augmentin - 875mg Tablet) 1 tab PO BID@0800, 1730 [facility] Last Admin: 11/21/17 17:45 Dose: 1 tab Lactobacillus Acidophilus (Bacid -) 1 tab PO DAILY [facility] Last Admin: 11/21/17 09:48 Dose: 1 tab Levetiracetam (Keppra -) 750 mg PO BID [facility] Last Admin: 11/21/17 21:05 Dose: 750 mg Ondansetron HCl (Zofran Injection) 4 mg IVPUSH Q6H PRN PRN Reason: NAUSEA Multivit/Folic Acid/Iron ( Vitamins (Sjr) -) 1 tab PO DAILY [facility] Last Admin: 11/21/17 09:48 Dose: 1 tab Thiamine HCl (Vitamin B1 -) 100 mg PO HS [facility] Last Admin: 11/21/17 21:05 Dose: 100 mg Physical Examination Vital Signs Temperature 97.6 F 11/22/17 06:38 Pulse Rate 76 11/22/17 06:38 Respiratory Rate 16 11/22/17 06:38 Blood Pressure 124/60 11/22/17 06:38 O2 Sat by Pulse Oximetry (%) 98 11/21/17 21:00 Constitutional: Yes: Awake and alert, conversive today Eyes: Yes: Conjunctiva Clear HENT: Yes: Atraumatic, Normocephalic Cardiovascular: Yes: Tachycardia. No: Pulse Irregular, Gallop, Murmur, Rub Respiratory: Yes: On BiPap, Rhonchi, Tachypnea, Wheezes. No: Regular, CTA Bilaterally Gastrointestinal: Yes: Normal Bowel Sounds, Soft. No: Distention, Tenderness Extremities: Yes: Erythema (LLE) Edema: No Neuro: Awake, alert, fatigued appearing, CN intact, moving all ext equally, sensory intact, gait deferred Labs: CBCD WBC 7.6 K/mm3 (4.0-10.0) 11/21/17 06:25 RBC 5.48 M/mm3 (4.00-5.60) 11/21/17 06:25 Hgb 14.8 GM/dL (11.7-16.9) 11/21/17 06:25 Hct 44.6 % (35.4-49) 11/21/17 06:25 MCV 81.5 fl (80-96) 11/21/17 06:25 MCHC 33.1 g/dl (32.0-35.9) 11/21/17 06:25 RDW 14.0 % (11.9-15.9) 11/21/17 06:25 Plt Count 255 K/MM3 (134-434) D 11/21/17 06:25 MPV 8.6 fl (7.5-11.1) 11/21/17 06:25 CMP Sodium 136 mmol/L (136-145) 11/21/17 06:25 Potassium 4.2 mmol/L (3.5-5.1) 11/21/17 06:25 Chloride 104 mmol/L (98-107) 11/21/17 06:25 Carbon Dioxide 28 mmol/L (21-32) 02/11/18 06:25 Anion Gap 4 (8-16) L 11/21/17 06:25 BUN 18 mg/dL (7-18) D 11/21/17 06:25 Creatinine 0.9 mg/dL (0.7-1.3) 11/21/17 06:25 Creat Clearance w eGFR 55.38 (>60) 11/15/17 07:50 Calcium 8.7 mg/dL (8.5-10.1) 11/21/17 06:25 Total Bilirubin 0.3 mg/dL (0.2-1.0) 11/15/17 07:50 AST 30 U/L (15-37) 11/15/17 07:50 ALT 26 U/L (12-78) 11/15/17 07:50 Alkaline Phosphatase 101 U/L (45-117) 11/15/17 07:50 Total Protein 6.6 g/dl (6.4-8.2) 11/15/17 07:50 Albumin 4.2 g/dl (3.4-5.0) 11/15/17 07:50 Imaging - Results Chest X-ray: Report Reviewed, Image Reviewed Cat Scan, Head: Report Reviewed Problem List 22 year old male, known to me from the office, who was brought in after being found down at home. He states that he was using heroin and xanax. He states he was inhaling heroin night prior to admission, previous use was two weeks ago. He was found to be hypoxic and was placed on bipap at home when he was found by his mom. Brought to the hospital for further mgmt. Of note, Utox positive for Opiates, Benzos, and MJ. Ct head completed and did not show acute changes. CT chest reviewed and no embolus but suspicious for PNA. I've had multiple conversations with him in the past regarding substance abuse. He previously presented for seizures but this more consistent with drug overdose. -Follow up regarding detox/counciling, on methadone -Follow up regarding possible PNA -Continue keppra at home dose, does not require adjustment, restarted -Events more consistent with overdose -Mental status improving, appears to be at baseline -Continue monitoring respiratory status, improved -Hydration as required -Now on augmentin -Seizure precautions -Conversation with patient and mother about treatment plan
[2017-11-22] MEDS ORDERED: PT OWN MED DRAWER 7, Y5N ONE (09:45)
[2017-11-22] MEDS: LACTOBACILLUS ACIDOPHILUS 1 EACH TAB (FP) PO SCH (09:50)
[2017-11-22] MEDS: AMOX TR/POT CLAV 875MG/125MG TABLETS (FP) PO SCH (09:50)
[2017-11-22] MEDS: PRENATAL VITAMINS W/ FOLIC ACID TABLET (FP) PO SCH (09:50)
[2017-11-22] MEDS: levETIRAcetam 250 MG TABLET (FP) PO SCH (09:50)
[2017-11-22 09:55] VITALS: BP 109/52; PULSE 87; TEMP 97.5
--- NOTE | 2017-11-22 11:35 | PN ---
S Progress Note (SOAP) Subjective: anxiety, depression and fatigue reported completed detox would like to start suboxone maintenance Objective: 11/22/17 11:32 Vital Signs - 24 hr 11/21/17 11/21/17 11/21/17 14:39 18:30 21:00 Temperature 97.5 F L 97.9 F Pulse Rate 61 76 Respiratory 20 20 20 Rate Blood Pressure 103/48 O2 Sat by Pulse 98 Oximetry (%) 11/21/17 11/22/17 11/22/17 22:00 06:38 09:54 Temperature 97.6 F 97.5 F L Pulse Rate 85 76 87 Respiratory 18 16 20 Rate Blood Pressure 118/60 124/60 109/52 O2 Sat by Pulse Oximetry (%) Laboratory Tests 11/15/17 11/15/17 11/15/17 07:50 07:50 07:50 WBC 4.5 RBC 5.84 H Hgb 15.4 Hct 48.9 MCV 83.8 MCH 26.5 MCHC 31.6 L RDW 14.3 Plt Count 199 MPV 8.8 Neutrophils % 75.8 Lymphocytes % 19.4 Monocytes % 4.7 Eosinophils % 0.0 Basophils % 0.1 PT with INR 13.90 H INR 1.23 H PTT (Actin FS) 25.6 L Anticoagulation Therapy Puncture Site ABG pH ABG pCO2 at Pt Temp ABG pO2 at Pt Temp ABG HCO3 ABG O2 Sat (Measured) ABG O2 Content ABG Base Excess Dannie Test VBG pH 7.27 L POC VBG pCO2 36.3 L POC VBG pO2 53.1 H Mixed VBG HCO3 16.0 L Methemoglobin O2 Delivery Device Oxygen Flow Rate Vent Mode Vent Rate Mechanical Rate Pressure Support Vent Sodium Potassium Chloride Carbon Dioxide Anion Gap BUN Creatinine Creat Clearance w eGFR Random Glucose Lactic Acid Calcium Phosphorus Magnesium Total Bilirubin AST ALT Alkaline Phosphatase Creatine Kinase Creatine Kinase Index CK-MB (CK-2) Troponin I Total Protein Albumin Urine Color Urine Appearance Urine pH Ur Specific [place] Urine Protein Urine Glucose (UA) Urine Ketones Urine Blood Urine Nitrite Urine Bilirubin Urine Urobilinogen Ur Leukocyte Esterase Urine WBC (Auto) Urine RBC (Auto) Ur Epithelial Cells Urine Bacteria Urine Mucus Opiates Screen Methadone Screen Barbiturate Screen Levetiracetam Phencyclidine Screen Ur Amphetamines Screen MDMA (Ecstasy) Screen Benzodiazepines Screen Cocaine Screen U Marijuana (THC) Screen Alcohol, Quantitative Blood Type Antibody Screen 11/15/17 11/15/17 11/15/17 07:50 07:50 07:50 WBC RBC Hgb Hct MCV MCH MCHC RDW Plt Count MPV Neutrophils % Lymphocytes % Monocytes % Eosinophils % Basophils % PT with INR INR PTT (Actin FS) Anticoagulation Therapy Puncture Site ABG pH ABG pCO2 at Pt Temp ABG pO2 at Pt Temp ABG HCO3 ABG O2 Sat (Measured) ABG O2 Content ABG Base Excess Dannie Test VBG pH POC VBG pCO2 POC VBG pO2 Mixed VBG HCO3 Methemoglobin O2 Delivery Device Oxygen Flow Rate Vent Mode Vent Rate Mechanical Rate Pressure Support Vent Sodium 141 Potassium 4.3 Chloride 107 Carbon Dioxide 22 Anion Gap 12 BUN 19 H Creatinine 1.6 H Creat Clearance w eGFR 55.38 Random Glucose 72 L Lactic Acid 4.9 H* Calcium 8.4 L Phosphorus Magnesium Total Bilirubin 0.3 AST 30 ALT 26 Alkaline Phosphatase 101 Creatine Kinase 606 H Creatine Kinase Index 0.6 CK-MB (CK-2) 3.823 H Troponin I 0.75 H* Total Protein 6.6 Albumin 4.2 Urine Color Urine Appearance Urine pH Ur Specific [place] Urine Protein Urine Glucose (UA) Urine Ketones Urine Blood Urine Nitrite Urine Bilirubin Urine Urobilinogen Ur Leukocyte Esterase Urine WBC (Auto) Urine RBC (Auto) Ur Epithelial Cells Urine Bacteria Urine Mucus Opiates Screen Methadone Screen Barbiturate Screen Levetiracetam Phencyclidine Screen Ur Amphetamines Screen MDMA (Ecstasy) Screen Benzodiazepines Screen Cocaine Screen U Marijuana (THC) Screen Alcohol, Quantitative Blood Type Cancelled Antibody Screen Cancelled 11/15/17 11/15/17 11/15/17 07:50 09:30 09:30 WBC RBC Hgb Hct MCV MCH MCHC RDW Plt Count MPV Neutrophils % Lymphocytes % Monocytes % Eosinophils % Basophils % PT with INR INR PTT (Actin FS) Anticoagulation Therapy Puncture Site ABG pH ABG pCO2 at Pt Temp ABG pO2 at Pt Temp ABG HCO3 ABG O2 Sat (Measured) ABG O2 Content ABG Base Excess Dannie Test VBG pH POC VBG pCO2 POC VBG pO2 Mixed VBG HCO3 Methemoglobin O2 Delivery Device Oxygen Flow Rate Vent Mode Vent Rate Mechanical Rate Pressure Support Vent Sodium Potassium Chloride Carbon Dioxide Anion Gap BUN Creatinine Creat Clearance w eGFR Random Glucose Lactic Acid Calcium Phosphorus Magnesium Total Bilirubin AST ALT Alkaline Phosphatase Creatine Kinase Creatine Kinase Index CK-MB (CK-2) Troponin I Total Protein Albumin Urine Color Yellow Urine Appearance Slcloudy Urine pH 5.0 Ur Specific [place] 1.018 Urine Protein 1+ H Urine Glucose (UA) 2+ H Urine Ketones Negative Urine Blood Negative Urine Nitrite Negative Urine Bilirubin Negative Urine Urobilinogen Negative Ur Leukocyte Esterase Negative Urine WBC (Auto) 1 Urine RBC (Auto) None Ur Epithelial Cells Rare Urine Bacteria Rare Urine Mucus Rare Opiates Screen Positive Methadone Screen Negative Barbiturate Screen Negative Levetiracetam Phencyclidine Screen Negative Ur Amphetamines Screen Negative MDMA (Ecstasy) Screen Negative Benzodiazepines Screen Positive Cocaine Screen Negative U Marijuana (THC) Screen Positive Alcohol, Quantitative < 5.0 Blood Type Antibody Screen 11/15/17 11/15/17 11/15/17 09:30 11:21 22:30 WBC RBC Hgb Hct MCV MCH MCHC RDW Plt Count MPV Neutrophils % Lymphocytes % Monocytes % Eosinophils % Basophils % PT with INR INR PTT (Actin FS) Anticoagulation Therapy No Result Required. Puncture Site Right radial ABG pH 7.33 L ABG pCO2 at Pt Temp 36.8 ABG pO2 at Pt Temp 72.7 L ABG HCO3 18.9 L ABG O2 Sat (Measured) 94.0 ABG O2 Content 17.2 ABG Base Excess -5.9 L Dannie Test Positive VBG pH POC VBG pCO2 POC VBG pO2 Mixed VBG HCO3 Methemoglobin 1.2 O2 Delivery Device Bipap Oxygen Flow Rate Yes Vent Mode S/t Vent Rate 12 Mechanical Rate No Result Required. Pressure Support Vent 10/5 Sodium Potassium Chloride Carbon Dioxide Anion Gap BUN Creatinine Creat Clearance w eGFR Random Glucose Lactic Acid 2.7 H* Calcium Phosphorus Magnesium Total Bilirubin AST ALT Alkaline Phosphatase Creatine Kinase 3125 H Creatine Kinase Index 0.3 CK-MB (CK-2) 9.854 H Troponin I 1.15 H* D Total Protein Albumin Urine Color Urine Appearance Urine pH Ur Specific [place] Urine Protein Urine Glucose (UA) Urine Ketones Urine Blood Urine Nitrite Urine Bilirubin Urine Urobilinogen Ur Leukocyte Esterase Urine WBC (Auto) Urine RBC (Auto) Ur Epithelial Cells Urine Bacteria Urine Mucus Opiates Screen Methadone Screen Barbiturate Screen Levetiracetam Phencyclidine Screen Ur Amphetamines Screen MDMA (Ecstasy) Screen Benzodiazepines Screen Cocaine Screen U Marijuana (THC) Screen Alcohol, Quantitative Blood Type Antibody Screen 11/15/17 11/15/17 11/16/17 22:30 22:30 05:36 WBC 10.6 H D RBC 4.48 D Hgb 12.5 D Hct 36.9 D MCV 82.3 MCH 27.9 MCHC 33.9 RDW 14.7 Plt Count 118 L D MPV 9.6 Neutrophils % 83.4 H Lymphocytes % 10.6 D Monocytes % 5.8 Eosinophils % 0.1 D Basophils % 0.1 PT with INR INR PTT (Actin FS) Anticoagulation Therapy Puncture Site ABG pH ABG pCO2 at Pt Temp ABG pO2 at Pt Temp ABG HCO3 ABG O2 Sat (Measured) ABG O2 Content ABG Base Excess Dannie Test VBG pH POC VBG pCO2 POC VBG pO2 Mixed VBG HCO3 Methemoglobin O2 Delivery Device Oxygen Flow Rate Vent Mode Vent Rate Mechanical Rate Pressure Support Vent Sodium 141 Potassium 4.2 Chloride 107 Carbon Dioxide 25 Anion Gap 9 BUN 12 D Creatinine 1.0 D Creat Clearance w eGFR Random Glucose 96 D Lactic Acid 2.8 H* Calcium 7.6 L Phosphorus Magnesium Total Bilirubin AST ALT Alkaline Phosphatase Creatine Kinase 3140 H Creatine Kinase Index 0.3 CK-MB (CK-2) 10.102 H Troponin I 1.15 H* Total Protein Albumin Urine Color Urine Appearance Urine pH Ur Specific [place] Urine Protein Urine Glucose (UA) Urine Ketones Urine Blood Urine Nitrite Urine Bilirubin Urine Urobilinogen Ur Leukocyte Esterase Urine WBC (Auto) Urine RBC (Auto) Ur Epithelial Cells Urine Bacteria Urine Mucus Opiates Screen Methadone Screen Barbiturate Screen Levetiracetam Phencyclidine Screen Ur Amphetamines Screen MDMA (Ecstasy) Screen Benzodiazepines Screen Cocaine Screen U Marijuana (THC) Screen Alcohol, Quantitative Blood Type Antibody Screen 11/16/17 11/16/17 11/16/17 05:36 08:00 09:40 WBC RBC Hgb Hct MCV MCH MCHC RDW Plt Count MPV Neutrophils % Lymphocytes % Monocytes % Eosinophils % Basophils % PT with INR INR PTT (Actin FS) Anticoagulation Therapy Puncture Site ABG pH ABG pCO2 at Pt Temp ABG pO2 at Pt Temp ABG HCO3 ABG O2 Sat (Measured) ABG O2 Content ABG Base Excess Dannie Test VBG pH POC VBG pCO2 POC VBG pO2 Mixed VBG HCO3 Methemoglobin O2 Delivery Device Oxygen Flow Rate Vent Mode Vent Rate Mechanical Rate Pressure Support Vent Sodium 142 Potassium 3.8 Chloride 106 Carbon Dioxide 27 Anion Gap 9 BUN 9 D Creatinine 1.0 Creat Clearance w eGFR Random Glucose 95 Lactic Acid Calcium 7.4 L Phosphorus 2.1 L Magnesium 1.4 L D Total Bilirubin AST ALT Alkaline Phosphatase Creatine Kinase 2853 H Cancelled Creatine Kinase Index 0.2 CK-MB (CK-2) 6.920 H Troponin I 0.96 H* Cancelled Total Protein Albumin Urine Color Urine Appearance Urine pH Ur Specific [place] Urine Protein Urine Glucose (UA) Urine Ketones Urine Blood Urine Nitrite Urine Bilirubin Urine Urobilinogen Ur Leukocyte Esterase Urine WBC (Auto) Urine RBC (Auto) Ur Epithelial Cells Urine Bacteria Urine Mucus Opiates Screen Methadone Screen Barbiturate Screen Levetiracetam 2.0 L Phencyclidine Screen Ur Amphetamines Screen MDMA (Ecstasy) Screen Benzodiazepines Screen Cocaine Screen U Marijuana (THC) Screen Alcohol, Quantitative Blood Type Antibody Screen 11/17/17 11/17/17 11/18/17 06:10 06:10 05:33 WBC 11.5 H 9.4 RBC 4.39 4.42 Hgb 11.9 12.2 Hct 36.1 36.2 MCV 82.3 81.9 MCH 27.2 27.6 MCHC 33.0 33.6 RDW 14.0 14.3 Plt Count 135 144 MPV 9.6 9.8 Neutrophils % 79.3 72.0 Lymphocytes % 15.5 D 18.2 Monocytes % 4.4 7.0 Eosinophils % 0.7 D 2.6 D Basophils % 0.1 0.2 PT with INR INR PTT (Actin FS) Anticoagulation Therapy Puncture Site ABG pH ABG pCO2 at Pt Temp ABG pO2 at Pt Temp ABG HCO3 ABG O2 Sat (Measured) ABG O2 Content ABG Base Excess Dannie Test VBG pH POC VBG pCO2 POC VBG pO2 Mixed VBG HCO3 Methemoglobin O2 Delivery Device Oxygen Flow Rate Vent Mode Vent Rate Mechanical Rate Pressure Support Vent Sodium 142 Potassium 3.9 Chloride 105 Carbon Dioxide 29 Anion Gap 8 BUN 11 D Creatinine 1.0 Creat Clearance w eGFR Random Glucose 74 D Lactic Acid Calcium 8.3 L Phosphorus 2.4 L Magnesium 1.9 D Total Bilirubin AST ALT Alkaline Phosphatase Creatine Kinase Creatine Kinase Index CK-MB (CK-2) Troponin I Total Protein Albumin Urine Color Urine Appearance Urine pH Ur Specific [place] Urine Protein Urine Glucose (UA) Urine Ketones Urine Blood Urine Nitrite Urine Bilirubin Urine Urobilinogen Ur Leukocyte Esterase Urine WBC (Auto) Urine RBC (Auto) Ur Epithelial Cells Urine Bacteria Urine Mucus Opiates Screen Methadone Screen Barbiturate Screen Levetiracetam Phencyclidine Screen Ur Amphetamines Screen MDMA (Ecstasy) Screen Benzodiazepines Screen Cocaine Screen U Marijuana (THC) Screen Alcohol, Quantitative Blood Type Antibody Screen 11/18/17 11/19/17 11/19/17 05:33 05:00 05:00 WBC 8.4 RBC 4.69 Hgb 12.7 Hct 38.4 MCV 81.8 MCH 27.1 MCHC 33.1 RDW 14.2 Plt Count 185 D MPV 9.4 Neutrophils % 63.4 Lymphocytes % 21.0 Monocytes % 11.6 H Eosinophils % 3.7 Basophils % 0.3 PT with INR INR PTT (Actin FS) Anticoagulation Therapy Puncture Site ABG pH ABG pCO2 at Pt Temp ABG pO2 at Pt Temp ABG HCO3 ABG O2 Sat (Measured) ABG O2 Content ABG Base Excess Dannie Test VBG pH POC VBG pCO2 POC VBG pO2 Mixed VBG HCO3 Methemoglobin O2 Delivery Device Oxygen Flow Rate Vent Mode Vent Rate Mechanical Rate Pressure Support Vent Sodium 140 141 Potassium 3.8 4.0 Chloride 105 105 Carbon Dioxide 29 28 Anion Gap 6 L 8 BUN 11 10 Creatinine 0.9 0.9 Creat Clearance w eGFR Random Glucose 77 80 Lactic Acid Calcium 7.4 L 7.8 L Phosphorus 3.4 D 4.4 D Magnesium 1.7 L 1.9 Total Bilirubin AST ALT Alkaline Phosphatase Creatine Kinase Creatine Kinase Index CK-MB (CK-2) Troponin I Total Protein Albumin Urine Color Urine Appearance Urine pH Ur Specific [place] Urine Protein Urine Glucose (UA) Urine Ketones Urine Blood Urine Nitrite Urine Bilirubin Urine Urobilinogen Ur Leukocyte Esterase Urine WBC (Auto) Urine RBC (Auto) Ur Epithelial Cells Urine Bacteria Urine Mucus Opiates Screen Methadone Screen Barbiturate Screen Levetiracetam Phencyclidine Screen Ur Amphetamines Screen MDMA (Ecstasy) Screen Benzodiazepines Screen Cocaine Screen U Marijuana (THC) Screen Alcohol, Quantitative Blood Type Antibody Screen 11/20/17 11/20/17 11/21/17 06:15 06:15 06:25 WBC 7.0 7.6 RBC 5.02 5.48 Hgb 13.8 14.8 Hct 41.1 44.6 MCV 81.8 81.5 MCH 27.4 27.0 MCHC 33.5 33.1 RDW 14.0 14.0 Plt Count 208 255 D MPV 8.9 8.6 Neutrophils % 54.6 43.9 Lymphocytes % 29.6 D 36.1 D Monocytes % 12.0 H 14.7 H Eosinophils % 3.5 4.6 H Basophils % 0.3 0.7 PT with INR INR PTT (Actin FS) Anticoagulation Therapy Puncture Site ABG pH ABG pCO2 at Pt Temp ABG pO2 at Pt Temp ABG HCO3 ABG O2 Sat (Measured) ABG O2 Content ABG Base Excess Dannie Test VBG pH POC VBG pCO2 POC VBG pO2 Mixed VBG HCO3 Methemoglobin O2 Delivery Device Oxygen Flow Rate Vent Mode Vent Rate Mechanical Rate Pressure Support Vent Sodium 139 Potassium 4.0 Chloride 103 Carbon Dioxide 28 Anion Gap 8 BUN 11 Creatinine 0.9 Creat Clearance w eGFR Random Glucose 84 Lactic Acid Calcium 9.1 Phosphorus 4.4 Magnesium 2.0 Total Bilirubin AST ALT Alkaline Phosphatase Creatine Kinase Creatine Kinase Index CK-MB (CK-2) Troponin I Total Protein Albumin Urine Color Urine Appearance Urine pH Ur Specific [place] Urine Protein Urine Glucose (UA) Urine Ketones Urine Blood Urine Nitrite Urine Bilirubin Urine Urobilinogen Ur Leukocyte Esterase Urine WBC (Auto) Urine RBC (Auto) Ur Epithelial Cells Urine Bacteria Urine Mucus Opiates Screen Methadone Screen Barbiturate Screen Levetiracetam Phencyclidine Screen Ur Amphetamines Screen MDMA (Ecstasy) Screen Benzodiazepines Screen Cocaine Screen U Marijuana (THC) Screen Alcohol, Quantitative Blood Type Antibody Screen 11/21/17 06:25 WBC RBC Hgb Hct MCV MCH MCHC RDW Plt Count MPV Neutrophils % Lymphocytes % Monocytes % Eosinophils % Basophils % PT with INR INR PTT (Actin FS) Anticoagulation Therapy Puncture Site ABG pH ABG pCO2 at Pt Temp ABG pO2 at Pt Temp ABG HCO3 ABG O2 Sat (Measured) ABG O2 Content ABG Base Excess Dannie Test VBG pH POC VBG pCO2 POC VBG pO2 Mixed VBG HCO3 Methemoglobin O2 Delivery Device Oxygen Flow Rate Vent Mode Vent Rate Mechanical Rate Pressure Support Vent Sodium 136 Potassium 4.2 Chloride 104 Carbon Dioxide 28 Anion Gap 4 L BUN 18 D Creatinine 0.9 Creat Clearance w eGFR Random Glucose 86 Lactic Acid Calcium 8.7 Phosphorus Magnesium Total Bilirubin AST ALT Alkaline Phosphatase Creatine Kinase Creatine Kinase Index CK-MB (CK-2) Troponin I Total Protein Albumin Urine Color Urine Appearance Urine pH Ur Specific [place] Urine Protein Urine Glucose (UA) Urine Ketones Urine Blood Urine Nitrite Urine Bilirubin Urine Urobilinogen Ur Leukocyte Esterase Urine WBC (Auto) Urine RBC (Auto) Ur Epithelial Cells Urine Bacteria Urine Mucus Opiates Screen Methadone Screen Barbiturate Screen Levetiracetam Phencyclidine Screen Ur Amphetamines Screen MDMA (Ecstasy) Screen Benzodiazepines Screen Cocaine Screen U Marijuana (THC) Screen Alcohol, Quantitative Blood Type Antibody Screen no signs of withdrwal very depresssed affect, no si at [facility], mother at bedside Assessment: 11/22/17 11:33 start suboxone 2mg s/l x1 dose now if tolerate with no precipitated withdrawal can give second dose. 2 week prescription for 4mg sent to pharmacyt and written to cover patient until his outpatient appointment in 2 weeks, Hector Syed MD [phone] 11/22/17 11:37
[2017-11-22] MEDS ORDERED: BUPRENORPHINE/NALOXONE 2 MG/0.5 MG FILM PACKET SL ONE ×2 (11:45→13:00)
--- NOTE | 2017-11-22 13:01 | PN ---
Progress Note, Physician History of Present Illness: no complaints no issues - Current Medication List Current Medications: Active Medications Acetaminophen (Tylenol -) 650 mg PO Q4H PRN PRN Reason: PAIN OR FEVER Amoxicillin/Clavulanate Potassium (Augmentin - 875mg Tablet) 1 tab PO BID@0800, 1730 [facility] Last Admin: 11/22/17 09:50 Dose: 1 tab Buprenorphine/Naloxone (Suboxone 2mg/0.5mg Sl Film -) 1 each SL ONCE ONE Stop: 11/22/17 13:01 Buprenorphine/Naloxone (Suboxone 2mg/0.5mg Sl Film -) 2 each SL DAILY [facility] Lactobacillus Acidophilus (Bacid -) 1 tab PO DAILY [facility] Last Admin: 11/22/17 09:50 Dose: 1 tab Levetiracetam (Keppra -) 750 mg PO BID [facility] Last Admin: 11/22/17 09:50 Dose: 750 mg Ondansetron HCl (Zofran Injection) 4 mg IVPUSH Q6H PRN PRN Reason: NAUSEA Multivit/Folic Acid/Iron ( Vitamins (Sjr) -) 1 tab PO DAILY [facility] Last Admin: 11/22/17 09:50 Dose: 1 tab Thiamine HCl (Vitamin B1 -) 100 mg PO HS [facility] Last Admin: 11/21/17 21:05 Dose: 100 mg - Objective Vital Signs: Vital Signs Temperature 97.5 F L 11/22/17 09:54 Pulse Rate 87 11/22/17 09:54 Respiratory Rate 20 11/22/17 09:54 Blood Pressure 109/52 11/22/17 09:54 O2 Sat by Pulse Oximetry (%) 98 11/21/17 21:00 Constitutional: Yes: No Distress, Calm Cardiovascular: Yes: Regular Rate and Rhythm Respiratory: Yes: Regular, Poor Air Entry Gastrointestinal: Yes: Normal Bowel Sounds, Soft Musculoskeletal: Yes: WNL Extremities: Yes: WNL Neurological: Yes: Alert, Oriented Psychiatric: Yes: Alert, Oriented Labs: CBC, BMP 11/21/17 06:25 11/21/17 06:25 INR, PTT INR 1.23 (0.82-1.09) H 11/15/17 07:50 Assessment/Plan Problem List - Problems (1) Respiratory failure Code(s): J96.90 - RESPIRATORY FAILURE, UNSP, UNSP W HYPOXIA OR HYPERCAPNIA Qualifiers: Chronicity: acute Respiratory failure complication: hypoxia Qualified Code(s): J96.01 - Acute respiratory failure with hypoxia (2) Heroin overdose Code(s): T40.1X1A - POISONING BY HEROIN, ACCIDENTAL (UNINTENTIONAL), INIT ENCNTR Qualifiers: Encounter type: initial encounter Injury intent: accidental or unintentional Qualified Code(s): T40.1X1A - Poisoning by heroin, accidental ( unintentional), initial encounter (3) Toxic encephalopathy Code(s): G92 - TOXIC ENCEPHALOPATHY (4) Aspiration into airway Code(s): T17.908A - UNSP FB IN RESP TRACT, PART UNSP CAUSING OTH INJURY, INIT Qualifiers: Encounter type: initial encounter Qualified Code(s): T17.908A - Unspecified foreign body in respiratory tract, part unspecified causing other injury, initial encounter (5) Lactic acidosis Code(s): E87.2 - ACIDOSIS (6) Seizure Code(s): R56.9 - UNSPECIFIED CONVULSIONS (7) Troponin level elevated Code(s): R74.8 - ABNORMAL LEVELS OF OTHER SERUM ENZYMES (8) JEFFREY (acute kidney injury) Code(s): N17.9 - ACUTE KIDNEY FAILURE, UNSPECIFIED looking at the patient he looks stbale,no arevalo iv seen on the body will figure out tomorrow if patient uses iv drugs looking at the imaging studies there is some suspicion of pna plan continue oral abx incentive aracelis stop abx in another 3 days rest as per primary team
--- NOTE | 2017-11-22 14:29 | DS ---
Physical Exam: SUBJECTIVE: Patient seen and examined OBJECTIVE: Vital Signs Period Temp Pulse Resp BP Sys/Velasquez Pulse Ox Last 24 Hr 97.5 F-97.9 F 61-87 16-20 103-124/48-60 98 PHYSICAL EXAM GENERAL: The patient is awake, alert, and fully oriented, in no acute distress. HEAD: Normal with no signs of trauma. EYES: PERRL, extraocular movements intact, sclera anicteric, conjunctiva clear. ENT: Ears normal, nares patent, oropharynx clear without exudates, moist mucous membranes. NECK: Trachea midline, full range of motion, supple. LUNGS: Breath sounds equal, clear to auscultation bilaterally, no wheezes, no crackles, no accessory muscle use. HEART: Regular rate and rhythm, S1, S2 without murmur, rub or gallop. ABDOMEN: Soft, nontender, nondistended, normoactive bowel sounds, no guarding, no rebound, no hepatosplenomegaly, no masses. EXTREMITIES: 2+ pulses, warm, well-perfused, no edema. NEUROLOGICAL: Cranial nerves II through XII grossly intact. Normal speech, gait not observed. PSYCH: Normal mood, normal affect. SKIN: Warm, dry, normal turgor, no rashes or lesions noted. LABS HOSPITAL COURSE: Date of Admission:11/15/17 Date of Discharge: 11/22/17 Discharge Summary Reason For Visit: ALTERED MENTAL STATUS; DIACETYLMORPHINE OD Current Active Problems JEFFREY (acute kidney injury) (Acute) Altered mental status (Acute) Aspiration into airway (Acute) Aspiration into airway (Acute) Benzodiazepine (tranquilizer) overdose (Acute) Heroin overdose (Acute) Lactic acidosis (Acute) Opioid dependence with withdrawal (Acute) Pneumonia (Acute) Respiratory failure (Acute) Sedative, hypnotic or anxiolytic dependence with withdrawal, uncomplicated ( Acute) Seizure (Acute) Seizures (Acute) Toxic encephalopathy (Acute) Troponin level elevated (Acute) Condition: Guarded - Instructions Diet, Activity, Other Instructions: Mr. Yinka Hayden: Please continue the antibiotics for 3 more days as ordered. Please also take the Suboxone as ordered by . Please continue the incentive spirometer every hour helps your practice taking deep breaths and help open up your airways. I am available for you if you have any questions or concerns. Thank you. Jennifer Kay, WASHERY BOSS [phone] [facility] at [facility] Referrals: Deshaun Ashraf MD [Staff Physician] - 1 Week Hector Syed MD [Staff Physician] - Elis Vega MD [Non Staff, Medical] - Disposition: HOME - Home Medications Comprehensive Discharge Medication List: Ambulatory Orders Levetiracetam [Keppra] 750 mg PO BID 09/25/17 Amox-Tr/K Cl [Augmentin 875-125mg Tablet -] 1 tab PO BID@0800,1730 #7 tablet 09/27 Buprenorphine/Naloxone [Suboxone 2Mg/0.5MG Sl Film -] 2 each SL DAILY #30 film MDD 2 11/22/17 Lactobacillus Acidophilus [Bacid -] 1 tab PO DAILY #7 tab 11/22/17 Vitamins (Sjr) - 1 tab PO DAILY #30 tablet 11/22/17 Thiamine HCl [Vitamin B1 -] 100 mg PO HS #30 tablet 11/22/17 levETIRAcetam [Keppra -] 750 mg PO BID tablet 11/22/17
[2017-11-23] MEDS ORDERED: BUPRENORPHINE/NALOXONE 2 MG/0.5 MG FILM PACKET SL SCH (10:00)
== END 2017-11-22 14:42 | disposition home or self-care (01) | DRG 137 ==
LOC: JER 07:31 → JERBED 14:17 → JICU 22:05 → J2W 11-16 12:07 → J5S 11-20 06:51
PROVIDERS: ADMIT Internal Medicine; ATTEND Internal Medicine
DX: J69.0 Pneumonitis due to inhalation of food and vomit (principal); T40.1X1A Poisoning by heroin, accidental (unintentional), initial encounter; Y92.89 Other specified places as the place of occurrence of the external cause; J96.01 Acute respiratory failure with hypoxia; G92 Toxic encephalopathy; E87.2 Acidosis; R56.9 Unspecified convulsions; N17.9 Acute kidney failure, unspecified; E83.42 Hypomagnesemia; I95.9 Hypotension, unspecified; D69.6 Thrombocytopenia, unspecified; F17.210 Nicotine dependence, cigarettes, uncomplicated; R41.82 Altered mental status, unspecified
CPT/HCPCS: 36415; 36600; 70450-TC; 71045-TC; 71046-TC-FY; 71275-TC; 80048; 80053; 80307; 81003; 81015; 82375; 82550; 82553; 82803; 83050; 83605; 83735; 84100; 84484; 85025; 85610; 85730; 87040; 87086; 87804; 90688; 93005; 93010; 93306-TC; 94660; 99285-25; J0475; J0735

== ENCOUNTER 2018-06-12 22:19 | Emergency (ER) | payer OTHER ==
--- NOTE | 2018-06-12 22:22 | PDOC ---
History of Present Illness - History of Present Illness Initial Comments: 06/12/18 22:43 The patient is a 23 year old male, with a significant PMH of heroin abuse, seizures, who presents to the emergency department via walk-in with right hand swelling and pain s/p punching his garage door yesterday. The patient states he took Ibuprofen for the pain yesterday and today with minimal relief. He denies any numbness or loss of sensation. Denies any homicidal or suicidal ideations. The patient denies chest pain, shortness of breath, headache and dizziness. Denies fever, chills, nausea, vomit, diarrhea and constipation. PAST MEDICAL HISTORY: heroin abuse, seizures PAST SURGICAL HISTORY: no significant history FAMILY HISTORY: no pertinent history SOCIAL HISTORY: Pt lives with family and is employed. MEDICATIONS: reviewed ALLERGIES: As per nursing notes Review of Systems General: No fevers or chills, no weakness, no weight loss HEENT: No change in vision. No sore throat,. No ear pain CardioVascular: No chest pain or shortness of breath Respiratory:No cough, or wheezing. Gastrointestinal: no nausea, vomiting, diarrhea or constipation, No rectal bleeding Genitourinary: No dysuria, hematuria, or frequency Musculoskeletal: +Right hand pain and swelling. Neurologic: No headache, vertigo, dizziness or loss of consciousness Psychiatric: nor depression Skin: No rashes or easy bruising Endocrine: no increased thirst or abnormal weight change Allergic: no skin or latex allergy All other systems reviewed and normal Physical Exam: GENERAL: The patient is awake, alert, and fully oriented, in no acute distress. HEAD: Normal with no signs of trauma. EYES: Pupils equal, round and reactive to light, extraocular movements intact, sclera anicteric, conjunctiva clear. EXTREMITIES: +Swelling, tenderness and deformity over the 5th metacarpal. Neurovascular distal intact. NEUROLOGICAL: Normal speech, normal gait. PSYCH: Normal mood, normal affect. SKIN: Warm, Dry, normal turgor, no rashes or lesions noted. <Paras Hall - Last Filed: 06/12/18 22:43> - General History Source: Patient Exam Limitations: No Limitations - History of Present Illness Initial Comments: 06/12/18 22:41 A portion of this note was documented by scribe services under my direction. I have reviewed the details of the note, within reason, and agree with the documentation. The case summary and management plan written by me. X-ray fracture head of metacarpal is displaced Procedure note Ulnar gutter OCL splint applied neurovascular post-splint application intact. Assessment plan: This is a 23-year-old male who comes in one day post punching a metal door. Patient had an x-ray that shows a fracture of the fifth metacarpal patient was placed in a OCL ulnar gutter splint. Patient put in a sling and referred to orthopedist <Jennifer Wisdom I - Last Filed: 06/12/18 23:31> - General Chief Complaint: Injury Stated Complaint: PUNCHED A DOOR Time Seen by Provider: 06/12/18 22:20 Past History <Paras Hall - Last Filed: 06/12/18 22:43> - Past Medical History Anemia: No Asthma: No Cancer: No Cardiac Disorders: No CVA: No COPD: No CHF: No Dementia: No Diabetes: No GI Disorders: No Disorders: No HTN: No Hypercholesterolemia: No Liver Disease: No Seizures: Yes Thyroid Disease: No - Surgical History Abdominal Surgery: No Appendectomy: No Cardiac Surgery: No Cholecystectomy: No Lung Surgery: No Neurologic Surgery: No Orthopedic Surgery: No - Suicide/Smoking/Psychosocial Hx Smoking History: Current every day smoker Have you smoked in the past 12 months: Yes Number of Cigarettes Smoked Daily: 15 'Breaking Loose' booklet given: 11/15/17 Hx Alcohol Use: No Drug/Substance Use Hx: Yes (xanax and heroin, e cigarrette) Substance Use Type: Heroin, Marijuana Hx Substance Use Treatment: Yes (no) <Jennifer Widsom I - Last Filed: 06/12/18 23:31> - Past Medical History Allergies/Adverse Reactions: Allergies Allergy/AdvReac Type Severity Reaction Status Date / Time No Known Allergies Allergy Verified 06/12/18 22:21 Home Medications: Ambulatory Orders Clonazepam [Klonopin] 1 mg PO TID 06/12/18 Venlafaxine HCl [Effexor -] 150 mg PO BID 06/12/18 *Physical Exam - Vital Signs Last Vital Signs Temp Pulse Resp BP Pulse Ox 98 F 75 16 122/87 100 06/12/18 22:25 06/12/18 22:25 06/12/18 22:25 06/12/18 22:25 06/12/18 22:25 <Paras Hall - Last Filed: 06/12/18 22:43> *DC/Admit/Observation/Transfer - Attestations Scribe Attestion: 06/12/18 22:44 Documentation prepared by Paras Hall, acting as medical laboratory manager for Jennifer Wisdom MD. <Paras Hall - Last Filed: 06/12/18 22:43> - Discharge Dispostion Decision to Admit order: No <Jennifer Wisdom I - Last Filed: 06/12/18 23:31> Diagnosis at time of Disposition: Fracture of fifth metacarpal bone of right hand Qualifiers: Encounter type: initial encounter Fracture type: closed Metacarpal location: neck Fracture alignment: displaced Qualified Code(s): S62.336A - Displaced fracture of neck of fifth metacarpal bone, right hand, initial encounter for closed fracture - Discharge Dispostion Disposition: HOME Condition at time of disposition: Stable - Patient Instructions Printed Discharge Instructions: How to Use a Sling Additional Instructions: Call Dr. Ramírez on Wednesday for an appointment the phone number is [phone]. Tylenol or Motrin as needed for pain Return to the emergency department immediately with ANY new, persistent or worsening symptoms. Continue any medications as previously prescribed by your physician. You should follow up with your primary doctor as soon as possible regarding today's emergency department visit. . Please make sure your doctor reviews the results of your emergency evaluation. Thank you for coming to the Emergency Department today for your care. It was a pleasure to see you today. Please note that your evaluation is INCOMPLETE until you follow-up with your doctor.
[2018-06-12 22:29] VITALS: BP 122/87; PULSE 75; TEMP 98; BMI 24.3
[2018-06-12] MEDS ORDERED: IBUPROFEN 600 MG TABLET (FP) PO ONE ×2 (22:43→22:44)
== END 2018-06-12 22:51 | disposition home or self-care (01) ==
LOC: FER 22:19
DX: S62.336A Displaced fracture of neck of fifth metacarpal bone, right hand, initial encounter for closed fracture (principal); W22.01XA Walked into wall, initial encounter; Y93.89 Activity, other specified; Y92.9 Unspecified place or not applicable; F17.210 Nicotine dependence, cigarettes, uncomplicated; R56.9 Unspecified convulsions
CPT/HCPCS: 73130-TC-RT-FY; 99281-25

== ENCOUNTER 2019-03-09 07:55 | Emergency (ER) | payer OTHER | END 2019-03-09 10:30 | disposition home or self-care (01) | LOC: JER 07:55 ==

== ENCOUNTER 2019-04-29 22:48 | Emergency (ER) | payer OTHER ==
[2019-04-29 23:01] VITALS: BP 139/88; PULSE 99; TEMP 98.4; BMI 26.5
[2019-04-29] MEDS ORDERED: SODIUM CHLORIDE 0.9% 500 ML INFUS.BAG IV ONE (23:25)
[2019-04-29] MEDS ORDERED: FOLIC ACID INJECTION - 1 MG, THIAMINE HCL 100 MG, MULTIVIT INJECTION ADULT 10 ML in SOD... IVPB ONE (23:25)
[2019-04-29] MEDS ORDERED: chlordiazePOXIDE HCL 25 MG CAPSULE PO ONE (23:25)
--- NOTE | 2019-04-29 23:32 | PDOC ---
History of Present Illness - General Chief Complaint: Substance Abuse Stated Complaint: INTOX Time Seen by Provider: 04/29/19 23:17 History Source: Patient Exam Limitations: No Limitations - History of Present Illness Initial Comments: 04/29/19 23:26 24YOM with h/o EtOH use disorder, heroin use disorder (IVDA), prior cocaine and benzo use disorder, and current depression/anxiety/insomnia (on Seroquel) who p/ w withdrawal symptoms requesting detox. The patient notes that he drinks a large bottle of [place] Goose every day and shoots up heroin from 5-20 times/day, but he last used yesterday and wants detox. He notes profuse sweats all day, decreased appetite, all-over body aches, nausea, and shakiness. He denies SI/HI , hallucinations, or any other symptoms. He was last in detox 2 months ago. Also believes he has an infection on his arm with possible abscess where he injected two days ago. Past History - Past Medical History Allergies/Adverse Reactions: Allergies Allergy/AdvReac Type Severity Reaction Status Date / Time No Known Allergies Allergy Unverified 04/29/19 22:57 Home Medications: Ambulatory Orders Quetiapine Fumarate [Seroquel -] 50 mg PO HS 04/30/19 Sulfamethoxazole/Trimethoprim [Bactrim Ds -] 2 tab PO BID #28 tablet 04/30/19 - Immunization History Immunization Up to Date: Yes - Suicide/Smoking/Psychosocial Hx Smoking History: Never smoked Have you smoked in the past 12 months: No Number of Cigarettes Smoked Daily: 0 Information on smoking cessation initiated: No 'Breaking Loose' booklet given: 04/11/14 Hx Alcohol Use: No Drug/Substance Use Hx: No Substance Use Type: Marijuana Review of Systems - Review of Systems Able to Perform ROS?: Yes Comments:: 04/29/19 23:30 GEN: malaise, sweats, no fever, generalized weakness, or weight change HEENT: no ear pain, sore throat, vision change, or eye pain CV: no chest pain, palpitations, lightheadedness, syncope, or edema RESP: no cough, wheezing, or SOB GI: no abdominal pain, nausea, vomiting, diarrhea, constipation, or white/black/ bloody stool : no dysuria, hematuria, incontinence, retention, bleeding, or discharge MSK: all-over muscle pain NEURO: no headache, seizure, vertigo, numbness, tingling, or focal weakness PSYCH: substance use, insomnia, depression, anxiety, no SI/HI SKIN: RUE redness/tenderness/warmth, possible RUE abscess ROS otherwise negative except as noted in HPI *Physical Exam - Vital Signs Last Vital Signs Temp Pulse Resp BP Pulse Ox 98.4 F 99 H 18 139/88 100 04/29/19 22:58 04/29/19 22:58 04/29/19 22:58 04/29/19 22:58 04/29/19 22:58 - Physical Exam Comments: 04/29/19 23:36 GENERAL: diaphoretic and uncomfortable-appearing, A/Ox4, mild distress, answers questions appropriately, stoic HEENT: PERRLA, EOMI, moist mucous membranes NECK/BACK: no midline ttp, no spinal stepoff or deformity, no hematoma, full ROM , neck supple CARDIOVASCULAR: regular rate/rhythm, normal S1S2, no MGR, strong peripheral pulses, capillary refill <2 seconds, extremities wwp, no edema LUNGS/RESPIRATORY: no respiratory distress, CTAB GI/ABDOMEN: symmetric [id number], normoactive BS, soft, no ttp, no midline pulsatile masses : no CVA tenderness EXTREMITIES: no muscle atrophy, no acute deformity SKIN: warm and diaphoretic, RUE anterior arm cellulitis which is not circumferential but has an area of induration and fluctuance laterally/distally adjacent to a track kingston, otherwise skin with no pallor, no jaundice, no rash, no bruising, no skin breakdown, no cuts, no lesions NEUROLOGICAL: GCS 15, CN II-XII grossly intact, 5/5 strength proximally and distally, no facial droop Procedures - Bedside Ultrasound Remarks: 04/30/19 03:30 STUDY: RUE soft tissue (proximal to AC) INDICATION: cellulitis with induration/fluctuance r/o abscess FINDINGS: 1 cm deep 0.5 cm x 1 cm pocket just deep to vein with overlying track kingston CONCLUSION: small subcutaneous abscess abutting vein with overlying track kingston ED Treatment Course - LABORATORY CBC & Chemistry Diagram: 04/30/19 01:20 04/30/19 01:20 Medical Decision Making - Medical Decision Making 24YOM with EtOH and heroin IVDA who presents with symptoms typical of his normal withdrawal and requesting detox. Initial Vital Signs Temp Pulse Resp BP Pulse Ox 98.4 F 99 H 18 139/88 100 04/29/19 22:58 04/29/19 22:58 04/29/19 22:58 04/29/19 22:58 04/29/19 22:58 Exam: As noted in Physical Exam section. DDX IBNLT: Most likely uncomplicated withdrawal from EtOH and heroin. Much less likely delirium tremens, EtOH withdrawal-related seizure, hepatic encephalopathy , ICH, UGIB (can cause AMS), LGIB, SBP, metabolic derangement, coingestion, hepatorenal syndrome, hepatopulmonary syndrome, Wernickes encephalopathy, Korsakoff syndrome, trauma, etc. W/U ordered: Labs as noted below TX ordered: Librium, banana bag, IVF, vancomycin for cellulitis. 04/30/19 01:42 I spoke with RN supervisor malt house at [facility] who states they will be expecting the patient at 8 am. She notes they will have a bed available at that time. On POCUS of RUE soft tissue just proximal to the AC, there is a small fluid collection just under the vein which the patient has been using to inject heroin. Fluid pocked is small and nearby vein making needle aspiration and antibiotic therapy a safer option. I use US to perform 18g needle aspiration of about 1 cc of purulent fluid after which time the fluid collection appears decompressed on the US. Patient gets dose of vancomycin here in the ED and will be given first dose of Bactrim at the time of discharge, then E-Rx will be sent for remaining Bactrim course for cellulitis. Fluid culture sent on aspirated purulent fluid. Laboratory Tests 04/30/19 04/30/19 04/30/19 01:20 01:20 01:20 WBC 8.1 RBC 5.49 Hgb 14.9 Hct 44.9 MCV 81.8 MCH 27.2 MCHC 33.3 RDW 13.4 Plt Count 268 MPV 8.3 Absolute Neuts (auto) 5.6 Neutrophils % 68.2 Lymphocytes % 19.9 Monocytes % 11.1 H Eosinophils % 0.6 Basophils % 0.2 Nucleated RBC % 0 ESR 26 H Sodium 138 Potassium 4.4 Chloride 100 Carbon Dioxide 33 H Anion Gap 5 L BUN 17.4 Creatinine 1.1 Est GFR (CKD-EPI)AfAm 109.86 Est GFR (CKD-EPI)NonAf 94.79 Random Glucose 91 Calcium 9.5 Total Bilirubin 0.7 AST 23 ALT 47 Alkaline Phosphatase 125 H Total Protein 8.5 H Albumin 4.4 Reassessment: Patient states feeling better, no longer diaphoretic, appears comfortable and is sleeping. 04/30/19 07:00 This patient has gotten significant relief of symptoms while in the ED. On last reassessment, vitals are wnl, pain is reasonably controlled, and exam is benign. Workup is not concerning for emergency-level pathology at this time. This patient is appropriate for discharge to [facility] with close outpatient follow up. They are comfortable with this plan and will go to [facility] with security. Specific return precautions are discussed and they will come back to the ER if necessary. *DC/Admit/Observation/Transfer Diagnosis at time of Disposition: Withdrawal from opioids, Cellulitis and abscess of upper arm and forearm Alcohol withdrawal Qualifiers: Complication of substance-induced condition: with unspecified complication Qualified Code(s): F10.239 - Alcohol dependence with withdrawal, unspecified - Discharge Dispostion Disposition: [facility]ILITY Condition at time of disposition: Stable Decision to Admit order: No - Prescriptions Prescriptions: Sulfamethoxazole/Trimethoprim [Bactrim Ds -] 2 tab PO BID #28 tablet - Referrals Referrals: Flakita Blake MD [Primary Care Provider] - - Patient Instructions Printed Discharge Instructions: DI for Cellulitis -- Adult Additional Instructions: You were seen in the ER for withdrawal symptoms and requesting detox at [facility], as well as right arm cellulitis. We did laboratory work which was not concerning. We gave you IV fluids and vitamins, antibiotics, and medications to help with the withdrawal symptoms. After our assessment, we do not believe you are having a medical emergency at this time, and we believe you are safe to go to [facility] for detox. CLINICAL EDUCATOR AND TAKE THE ANTIBIOTIC MEDICATIONS WE ARE SENDING TO THE [facility]. Take Motrin and Tylenol as needed for pain. Follow up with the [facility] providers. Please come back to the ER at any time, 24 hours a day, for any new or worsening symptoms, especially severe pain, vision troubles, hallucinations, difficulty walking/balancing, passing out, or other symptoms. If you are having symptoms that make it unsafe to drive, please call 911. TAKE 2 PILLS OF BACTRIM, TWICE A DAY, FOR 7 DAYS. RETURN FOR ANY WORSENING OF THE ARM INFECTION, FEVERS, OR STREAKING REDNESS TOWARD YOUR HEART. - Post Discharge Activity
[2019-04-30] MEDS ORDERED: chlordiazePOXIDE HCL 25 MG CAPSULE ONE (00:02)
[2019-04-30] MEDS ORDERED: VANCOMYCIN 1 GM in D5W (PRE-DOCKED) 1,000 MG/250 ML IVPB ONE (00:03)
--- NOTE | 2019-04-30 01:06 | PDOC ---
Documentation entered by Jose Roberto Steiner SCRIBE, acting as scribe for Nevaeh Do MD. Nevaeh Do MD: This documentation has been prepared by the dahliae, Jose Roberto Steiner SCRIBE, under my direction and personally reviewed by me in its entirety. I confirm that the documentation accurately reflects all work, treatment, procedures, and medical decision making performed by me. Attending Attestation - Resident Resident Name: Arlene Lee - ED Attending Attestation I have performed the following: I have examined & evaluated the patient, The case was reviewed & discussed with the resident, I agree w/resident's findings & plan - HPI HPI: 04/29/19 23:35 The patient is a 24 year old male with no significant past medical history who presents to the emergency department d=seeking detox. The patient states that he has had a history of alcohol and heroin abuse for several years (etoh since age 15). He states that he has gone to detox about 3 times in the past. The patient states that he usually drinks about 1 bottle of vodka a day and his last drink was yesterday along with his last heroine shoot (5-20x a day) yesterday. The patient endorses diaphoretic episode attributed to withdrawl. He denies any fever, nausea, vomiting, diarrhea, constipation or urinary symptoms. He denies any chest pain but endorses some palpitations sometimes. He denies any shortness of breath, headache or dizziness. The patient denies any other symptoms or complaints at time of exam. - Physicial Exam PE: 04/29/19 23:35 GENERAL: (+)diaphoretic. Awake, alert, and fully oriented, in no acute distress HEAD: No signs of trauma EYES: PERRLA, EOMI, sclera anicteric, conjunctiva clear ENT: Auricles normal inspection, hearing grossly normal, nares patent, oropharynx clear without exudates. Moist mucosa NECK: Normal ROM, supple, no lymphadenopathy, JVD, or masses LUNGS: Breath sounds equal, clear to auscultation bilaterally. No wheezes, and no crackles HEART: Regular rate and rhythm, normal S1 and S2, no murmurs, rubs or gallops ABDOMEN: Soft, nontender, normoactive bowel sounds. No guarding, no rebound. No masses EXTREMITIES: Normal range of motion, no edema. No clubbing or cyanosis. No cords, erythema, or tenderness NEUROLOGICAL: Cranial nerves II through XII grossly intact. Normal speech, normal gait SKIN: Warm, Dry, normal turgor, no rashes or lesions noted. - Medical Decision Making 04/29/19 23:29 Pt comes with alcohol and heroin withdrawal. He started drinking alcohol at 15 years and it became a problem when he was 19. Currently 24 yo; he has been in detox 3 times. He is requesting detox again. Pt is unemployed at this time. 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 04/30/19 01:39 CBC is normal 04/30/19 02:42 Pt has normal chem; sed rate is 26/elevated. May reflect drug use or reflect his abscess on his arm 04/30/19 02:43 Pt's alk phs is elevated. 04/30/19 06:19 Pt will go to [facility]
[2019-04-30 01:33] LABS: BASO % 0.2 % (0-2.0); EOS % 0.6 % (0-4.5); HEMATOCRIT 44.9 % (35.4-49); HEMOGLOBIN 14.9 GM/dL (11.7-16.9); LYMPH % 19.9 % (8-40); MCH 27.2 pg (25.7-33.7); MCHC 33.3 g/dl (32.0-35.9); MEAN CELL VOLUME 81.8 fl (80-96); MEAN PLT VOLUME 8.3 fl (7.5-11.1); MONO % 11.1 % (3.8-10.2); NEUT % 68.2 % (42.8-82.8); PLATELET COUNT 268 K/MM3 (134-434); RBC 5.49 M/mm3 (4.00-5.60); RDW 13.4 % (11.9-15.9); WHITE BLOOD COUNT 8.1 K/mm3 (4.0-10.0)
[2019-04-30 02:01] LABS: ALBUMIN 4.4 g/dl (3.4-5.0); BILIRUBIN,TOTAL 0.7 mg/dL (0.2-1); BLOOD UREA NITROGEN 17.4 mg/dL (7-18); CALCIUM 9.5 mg/dL (8.5-10.1); CREATININE 1.1 mg/dL (0.55-1.3); POTASSIUM 4.4 mmol/L (3.5-5.1); TOT PROT 8.5 g/dl (6.4-8.2)
[2019-04-30] MEDS ORDERED: LIDO 2%/EPI 1:200000 PRESRVFRE (20 ML SDVIAL) INF ONE (02:10)
[2019-04-30] MEDS ORDERED: LIDOCAINE 1%/EPI 1:100000 (20 ML MULTI DOSE VIAL) ONE (02:14)
[2019-04-30] MEDS ORDERED: VANCOMYCIN 1 GRAM (PRE-DOCKED) 1,000 MG/250 ML BAG IVPB ONE (03:28)
[2019-04-30] MEDS ORDERED: SULFAMETHOXAZOLE/TRIMETHOPRIM 800MG/160MG D.S. TABLET PO ONE (06:00)
[2019-04-30] MEDS ORDERED: SULFAMETHOXAZOLE/TRIMETHOPRIM 800MG/160MG D.S. TABLET ONE (06:06)
== END 2019-04-30 06:38 | disposition short-term general hospital (02) ==
LOC: MERGE 22:48 → JER 22:48
PROC: 3E0337Z Introduction of Electrolytic and Water Balance Substance into Peripheral Vein, Percutaneous Approach (ICD-10-PCS; principal; 2019-04-29)
PROC: 3E033GC Introduction of Other Therapeutic Substance into Peripheral Vein, Percutaneous Approach (ICD-10-PCS; 2019-04-29)
PROC: 3E03329 Introduction of Other Anti-infective into Peripheral Vein, Percutaneous Approach (ICD-10-PCS; 2019-04-29)
DX: F10.239 Alcohol dependence with withdrawal, unspecified (principal); F11.23 Opioid dependence with withdrawal; L02.419 Cutaneous abscess of limb, unspecified; F41.8 Other specified anxiety disorders
CPT/HCPCS: 36415; 80053; 85025; 85651; 87040; 87070; 87186; 87205; 96365; 96375; 99282-25; J7030

== ENCOUNTER 2019-04-30 08:04 | Inpatient (IN) | payer OTHER ==
[2019-04-30 08:43] VITALS: BMI 27.5
--- NOTE | 2019-04-30 09:21 | HP ---
COWS - Scale Resting Pulse: 0= IA 80 or Below Sweatin= Chills/Flushing Restless Observation: 1= Difficult to Sit Still Pupil Size: 1= Pupils >than Normal Bone or Joint Aches: 1= Mild Discomfort Runny Nose/ Eye Tearin= Runny Nose/Eyes GI Upset > 30mins: 2= Nausea/Diarrhea Tremor Observation: 2= Slight Tremor Visible Yawning Observation: 0= None Anxiety or Irritability: 2=Irritable/Anxious Goose Flesh Skin: 0=Smooth Skin COWS Score: 12 CIWA Score Nausea/Vomitin Muscle Tremors: 3 Anxiety: 3 Agitation: 3 Paroxysmal Sweats: 2 Orientation: 0-Oriented Tacttile Disturbances: 0-None Auditory Disturbances: 0-None Visual Disturbances: 0-None Headache: 2-Mild CIWA-Ar Total Score: 15 - Admission Criteria [facility] Guidelines: Admission for Medically Managed Detox: Requires at least one of the followin. CIWA greater than 12 2. Seizures within the past 24 hours 3. Delirium tremens within the past 24 hours 4. Hallucinations within the past 24 hours 5. Acute intervention needed for co occurring medical disorder 6. Acute intervention needed for co occurring psychiatric disorder 7. Severe withdrawal that cannot be handled at a lower level of care (continued vomiting, continued diarrhea, abnormal vital signs) requiring intravenous medication and/or fluids 8. Patient presents the following: CIWA greater than 12 Admission Criteria Met: Admission criteria met Admission ROS [facility] Chief Complaint: ACUTE ETOH WITHDRAWAL, I NEED HELP Allergies/Adverse Reactions: Allergies Allergy/AdvReac Type Severity Reaction Status Date / Time No Known Allergies Allergy Unverified 04/30/19 08:35 History of Present Illness: 24 YO MALE WITH STARTING USING OPIATES AGE 21 PRESCRIBED FOR SHOYULDER SURGERY BEGAN MISUSING 7 MOS POST OP IMMEDIATELY BEGAN USING HEROIN ONCE PAIN MEDS DC'D INH, IV USE BEGAN 2019 PREVIOUSLY WAS ON SUBOXONE X 7 MOS ABSTINENT SEVERAL PERIODS OF SELF TAPER ALSO IN DETOX AND REHAB WITH AFOREMENTIONED PERIOD OF ABSTINENCE ETOH USE BEGAN SP REHAB 2 MOS - Ebola screening Have you traveled outside of the country in the last 21 days: No (N) Have you had contact with anyone from an Ebola affected area: No Do you have a fever: No - Review of Systems Constitutional: Malaise EENT: reports: Tearing Respiratory: reports: No Symptoms reported Cardiac: reports: No Symptoms Reported GI: reports: Nausea, Poor Appetite, Poor Fluid Intake, Abdominal cramping : reports: No Symptoms Reported Musculoskeletal: reports: Muscle Pain Integumentary: reports: Other (PAIN AT ABCESS SITE) Neuro: reports: No Symptoms reported Endocrine: reports: No Symptoms Reported Hematology: reports: No Symptoms Reported Psychiatric: reports: Anxious Patient History - Patient Medical History Hx Anemia: No Hx Asthma: No Hx Chronic Obstructive Pulmonary Disease (COPD): No Hx Cancer: No Hx Cardiac Disorders: No Hx Congestive Heart Failure: No Hx Hypertension: No Hx Hypercholesterolemia: No Hx Pacemaker: No HX Cerebrovascular Accident: No Hx Seizures: No Hx Dementia: No Hx Diabetes: No Hx Gastrointestinal Disorders: No Hx Liver Disease: No Hx Genitourinary Disorders: No Hx Sexually Transmitted Disorders: No Hx Renal Disease (ESRD): No Hx Thyroid Disease: No Hx Human Immunodeficiency Virus (HIV): No Hx Hepatitis C: No Hx Depression: Yes (PREVIOUSLY ON EFFEXOR KLONOPIN) Hx Suicide Attempt: No Hx Bipolar Disorder: No Hx Schizophrenia: Yes (SEIZURES AND OD X1) - Patient Surgical History Hx Orthopedic Surgery: Yes (SHOULDER RECONSTRUCTIOM) - Smoking Cessation Smoking history: Current every day smoker Have you smoked in the past 12 months: Yes Aproximately how many cigarettes per day: 30 Hx Chewing Tobacco Use: No Initiated information on smoking cessation: Yes 'Breaking Loose' booklet given: 04/30/19 - Substances abused Alcohol Substance route: Oral Frequency: Daily Amount used: 1pint of vodka daily Age of first use: 15 Date of last use: 04/28/19 Heroin Substance route: Injection Frequency: Daily Amount used: 10 bags a day Age of first use: 21 Date of last use: 04/28/19 Family Disease History - Family Disease History Family Disease History: Other: Grandparent (WHOLE FAMILY), Father (SUBSTANCE USE ), Mother (ETOH COCAINE) Admission Physical Exam S - Vital Signs Vital Signs: Vital Signs - 24 hr 04/30/19 04/30/19 08:32 09:09 Temperature 97.0 F L 97.0 F L Pulse Rate 76 76 Respiratory 18 18 Rate Blood Pressure 114/81 114/81 - Physical General Appearance: Yes: Disheveled, Anxious HEENTM: Yes: EOMI, Normocephalic, ARIANA, Rhinorrhea Respiratory: Yes: Lungs Clear, Decreased Breath Sounds Neck: Yes: No masses,lesions,Nodules Cardiology: Yes: Regular Rhythm, Regular Rate, S1, S2 Abdominal: Yes: Increased Bowel Sounds Genitourinary: Yes: Within Normal Limits Back: Yes: Normal Inspection Musculoskeletal: Yes: full range of Motion, Gait Steady Extremities: Yes: Normal Capillary Refill, Normal Inspection, Normal Range of Motion, Non-Tender Neurological: Yes: Within Normal Limits, ballroom dance instructor II-XII NML intact, Fully Oriented, Alert, Motor Strength 5/5 Integumentary: Yes: Track Sifuentes (4x5 area induration and erythema), Other - Diagnostic (1) Alcohol withdrawal Current Visit: Yes Status: Acute Qualifiers: Complication of substance-induced condition: with unspecified complication Qualified Code(s): F10.239 - Alcohol dependence with withdrawal, unspecified (2) Cellulitis and abscess of upper arm and forearm Current Visit: No Status: Acute (3) Withdrawal from opioids Current Visit: Yes Status: Acute Breathalyzer - Breathalyzer Breathalyzer: 0 Urine Drug Screen - Test Device Lot number: [id number] Expiration date: 02/07/21 - Control Is test valid?: Yes - Results Urine drug screen results: THC-Marijuana, FEN-Fentanyl, MOP-Opiates, OXY- Oxycodone, BZO-Benzodiazepines Inpatient Rehab Admission - Rehab Decision to Admit Inpatient rehab admission?: No
[2019-04-30] MEDS ORDERED: MELATONIN 5 MG TABLETS PO PRN (09:35)
[2019-04-30] MEDS ORDERED: ACETAMINOPHEN 325 MG TABLET (FP) PO PRN ×2 (09:35)
[2019-04-30] MEDS ORDERED: MAGNESIUM CITRATE 300 ML BOTTLE PO PRN (09:35)
[2019-04-30] MEDS ORDERED: cloNIDine HCL 0.1 MG TABLET PO PRN (09:35)
[2019-04-30] MEDS ORDERED: BISMUTH SUBSALICYLATE 262 MG/15 ML BTL PO PRN (09:35)
[2019-04-30] MEDS ORDERED: NICOTINE POLACRILEX 4 MG GUM BUC PRN (09:35)
[2019-04-30] MEDS ORDERED: METHOCARBAMOL 500 MG TABLET PO PRN (09:35)
[2019-04-30] MEDS ORDERED: IBUPROFEN 400 MG TABLET (FP) PO PRN (09:35)
[2019-04-30] MEDS ORDERED: MAG HYDROX/AL HYDROX/SIMETH 30 ML UNIT-DOSE CUP PO PRN (09:35)
[2019-04-30] MEDS ORDERED: METHADONE HCL 10 MG TABLET (FOR DETOX USE ONLY) PO ONE (09:35)
[2019-04-30] MEDS ORDERED: MENTHOL/PHENOL 1 EACH UD MM PRN (09:35)
[2019-04-30] MEDS ORDERED: MAGNESIUM HYDROX 2400MG/30ML ORAL SUSPENSION 30 ML CUP PO PRN (09:35)
[2019-04-30] MEDS ORDERED: hydrOXYzine PAMOATE 25 MG CAPSULE (FP) PO PRN (09:35)
[2019-04-30] MEDS: SULFAMETHOXAZOLE/TRIMETHOPRIM 800MG/160MG D.S. TABLET PO SCH ×2 (11:34→22:46)
[2019-04-30] MEDS: diazePAM 5 MG TABLET PO PRN ×2 (11:34→19:33)
[2019-04-30] MEDS: PRENATAL VITAMINS W/ FOLIC ACID TABLET (FP) PO SCH (11:34)
[2019-04-30] MEDS: NICOTINE 21 MG/24 HOURS TOPICAL PATCH TD SCH (11:37)
[2019-04-30] MEDS: diazePAM 5 MG TABLET PO SCH ×2 (14:31→22:46)
[2019-04-30] MEDS ORDERED: QUEtiapine FUMARATE 50 MG TABLET PO SCH (22:00)
[2019-04-30] MEDS ORDERED: THIAMINE HCL 100 MG TABLET (FP) PO SCH (22:00)
[2019-05-01] MEDS: diazePAM 5 MG TABLET PO SCH ×2 (05:41→13:43)
[2019-05-01] MEDS: diazePAM 5 MG TABLET PO PRN ×3 (06:43→16:42)
--- NOTE | 2019-05-01 08:40 | CONSULT ---
[facility] Psychiatric Consult - Data Date of interview: 05/01/19 Admission source: Debra Youngblood Identifying data: Mr Honeycutt is a 24 years old single [place] male, unemployed with no source of income, living with family seeking detox treatment for alcohol and opioid Substance Abuse History: Reports history of alcohol and heroin use. Refer to addiction counselor's summary for further information Medical History: Sinificant for history of drug related seizure and orthosurgery for left shoulder reconstructio. Smokes cigarettes 1.5 ppd Psychiatric History: Reports that his first psychiatric contact was in 2016 when he saw saw a psychiatrist as an outpatient in [place]. Reports that he was diagnosed with depression, anxiety and insomnia and started on Effexor, Klonopin , Suboxone with trial of Remeron, Trazadone. He said that he saw that psychiatrist for approximately a year. He said that he stopped because he started using again and he would fail urine toxicology test as his urine sample was collected from him. He said that he went back to same psychiatrist after 5 months only to be prescribed Suboxone and he was with the psychiatrist till January 2019. Denies previous psychiatric hospitalization or suicidal attempt. At present, reports feeling anxious and sleeping poorly Physical/Sexual Abuse/Trauma History: Denies history of emotional, physical or sexual abuse as well as DV relationship. No service Additional Comment: Denies legal Mental Status Exam - Mental Status Exam Alert and Oriented to: Time, Place, Person Cognitive Function: Fair Patient Appearance: Well Groomed Mood: Anxious Affect: Appropriate Patient Behavior: Cooperative Speech Pattern: Clear Thought Process: Intact Thought Disorder: Not Present Hallucinations: Denies Suicidal Ideation: Denies Homicidal Ideation: Denies Insight/Judgement: Poor Appetite: Poor Muscle strength/Tone: Normal Gait/Station: Normal Psychiatric Findings - Problem List (Alpha 1, 2,3) (1) Substance-induced anxiety disorder Current Visit: Yes Status: Acute (2) Substance-induced sleep disorder Current Visit: Yes Status: Acute (3) Alcohol dependence with withdrawal, uncomplicated Current Visit: Yes Status: Acute (4) Opioid dependence, uncomplicated Current Visit: Yes Status: Acute (5) Nicotine dependence Current Visit: Yes Status: Chronic - Initial Treatment Plan Initial Treatment Plan: 1) Start Besomra 10 mg po HS prn for insomnia and Vistaril 50 mg po Q 4hrs prn for anxiety. 2) Continue inpatient detoxification
[2019-05-01] MEDS ORDERED: hydrOXYzine PAMOATE 50 MG CAPSULE (FP) PO PRN (08:51)
[2019-05-01] MEDS ORDERED: METHADONE (DETOX) 20 MG, METHADONE (DETOX) 5 MG PO ONE (10:00)
[2019-05-01] MEDS ORDERED: METHADONE HCL 5 MG TABLET (FOR DETOX USE ONLY) ONE (10:03)
[2019-05-01] MEDS ORDERED: METHADONE HCL 10 MG TABLET (FOR DETOX USE ONLY) ONE (10:03)
[2019-05-01] MEDS: SULFAMETHOXAZOLE/TRIMETHOPRIM 800MG/160MG D.S. TABLET PO SCH (10:52)
[2019-05-01] MEDS: PRENATAL VITAMINS W/ FOLIC ACID TABLET (FP) PO SCH (10:53)
[2019-05-01] MEDS: NICOTINE 21 MG/24 HOURS TOPICAL PATCH TD SCH (10:53)
[2019-05-01 12:06] LABS: HEMOGLOBIN 13.6 GM/dL (11.7-16.9); MCH 27.4 pg (25.7-33.7); MCHC 33.3 g/dl (32.0-35.9); MEAN CELL VOLUME 82.4 fl (80-96); MEAN PLT VOLUME 9.1 fl (7.5-11.1); PLATELET COUNT 240 K/MM3 (134-434); RBC 4.97 M/mm3 (4.00-5.60); RDW 13.7 % (11.9-15.9); WHITE BLOOD COUNT 9.3 K/mm3 (4.0-10.0)
[2019-05-01 12:35] LABS: ALBUMIN 4.2 g/dl (3.4-5.0); BILIRUBIN,TOTAL 0.5 mg/dL (0.2-1); BLOOD UREA NITROGEN 11.9 mg/dL (7-18); CALCIUM 9.4 mg/dL (8.5-10.1); CREATININE 1.2 mg/dL (0.55-1.3); POTASSIUM 4.4 mmol/L (3.5-5.1); TOT PROT 7.6 g/dl (6.4-8.2)
[2019-05-01] MEDS ORDERED: PROCHLORPERAZINE MALEATE 5 MG TABLET PO PRN (13:10)
--- NOTE | 2019-05-01 15:53 | PN ---
S CIWA - CIWA Score Nausea/Vomitin-No Nausea/No Vomiting Muscle Tremors: None Anxiety: 3 Agitation: 2 Paroxysmal Sweats: No Perspiration Orientation: 0-Oriented Tacttile Disturbances: 2-Mild Itch/Numbness/Burn Auditory Disturbances: 0-None Visual Disturbances: 1-Very Mild Sensitivity Headache: 3-Moderate CIWA-Ar Total Score: 11 BHS COWS - Scale Resting Pulse: 1= [place] 81-100 Sweatin= Chills/Flushing Restless Observation: 1= Difficult to Sit Still Pupil Size: 0= Normal to Room Light Bone or Joint Aches: 0= None Runny Nose/ Eye Tearin= None GI Upset > 30mins: 2= Nausea/Diarrhea Tremor Observation of Outstretched Hands: 2= Slight Tremor Visible Yawning Observation: 1= 1-2x During Session Anxiety or Irritability: 2=Irritable/Anxious Goose Flesh Skin: 3=Piloerection COWS Score: 13 S Progress Note (SOAP) Subjective: Nausea (Mild), Anxious, Interrupted Sleep, Poor Appetite. Objective: PATIENT A & O X 3, OBSERVED AMBULATING ON UNIT UNASSISTED. IN NO ACUTE DISTRESS. 05/01/19 15:51 Vital Signs Temperature 97.7 F 05/01/19 13:14 Pulse Rate 87 05/01/19 13:30 Respiratory Rate 18 05/01/19 13:30 Blood Pressure 112/73 05/01/19 13:30 O2 Sat by Pulse Oximetry (%) Laboratory Tests 05/01/19 05/01/19 07:00 07:00 WBC 9.3 RBC 4.97 Hgb 13.6 Hct 41.0 MCV 82.4 MCH 27.4 MCHC 33.3 RDW 13.7 Plt Count 240 MPV 9.1 Sodium 137 Potassium 4.4 Chloride 103 Carbon Dioxide 27 Anion Gap 7 L BUN 11.9 Creatinine 1.2 Est GFR (CKD-EPI)AfAm 98.89 Est GFR (CKD-EPI)NonAf 85.32 Random Glucose 101 Calcium 9.4 Total Bilirubin 0.5 AST 17 ALT 38 Alkaline Phosphatase 105 Total Protein 7.6 Albumin 4.2 LABS NOTED. RPR RESULT PENDING. 05/01/19 15:53 Assessment: 05/01/19 15:51 WITHDRAWAL SYMPTOMS. Plan: CONTINUE DETOX. PRN COMPAZINE PO NAUSEA. ENSURE PO FOR CALORIC SUPPLEMENTATION.
[2019-05-01 17:02] VITALS: BP 142/70; PULSE 108; TEMP 98.2
--- NOTE | 2019-05-01 19:16 | DS ---
[facility] Detox Discharge Summary Admission Date: 04/30/19 Discharge Date: 05/01/19 - History Additional Comments: Pt states he wants to leave as he has an appointment with Dr. Chaparro for suboxone treatment at 9:30. He states that he needs to leave today. Says he understands the risk of relapse if he does not get treatment. Pt states that he would like to continue antibiotics for cellulitis due to IV heroin use. - Physical Exam Results Vital Signs: Vital Signs Temperature 98.2 F 05/01/19 17:01 Pulse Rate 108 H 05/01/19 17:01 Respiratory Rate 18 05/01/19 17:01 Blood Pressure 142/70 05/01/19 17:01 O2 Sat by Pulse Oximetry (%) - Medication Discharge Medications: Ambulatory Orders Quetiapine Fumarate [Seroquel -] mg PO HS 03/09/19 hydrOXYzine PAMOATE [Vistaril -] 25 mg PO TID PRN #21 capsule 03/09/19 Quetiapine Fumarate [Seroquel -] 50 mg PO HS 04/30/19 Sulfamethoxazole/Trimethoprim [Bactrim Ds -] 2 tab PO BID #28 tablet 04/30/19 - AMA Did Patient Leave Against Medical Advice: Yes
[2019-05-01] MEDS ORDERED: SUVOREXANT 10 MG TABLET PO PRN (22:00)
[2019-05-02] MEDS ORDERED: diazePAM 5 MG TABLET PO SCH (06:00)
[2019-05-02] MEDS ORDERED: METHADONE HCL 10 MG TABLET (FOR DETOX USE ONLY) PO ONE (10:00)
[2019-05-03] MEDS ORDERED: diazePAM 5 MG TABLET PO ONE (06:00)
[2019-05-03] MEDS ORDERED: METHADONE (DETOX) 10 MG, METHADONE (DETOX) 5 MG PO ONE (10:00)
[2019-05-04] MEDS ORDERED: METHADONE HCL 10 MG TABLET (FOR DETOX USE ONLY) PO ONE (10:00)
[2019-05-05] MEDS ORDERED: METHADONE HCL 5 MG TABLET (FOR DETOX USE ONLY) PO ONE (06:00)
== END 2019-05-01 19:20 | disposition left against medical advice (07) | DRG 770 ==
LOC: YASAS 08:04 → MERGE 10:05 → Y6N 10:05
PROVIDERS: ADMIT Surgery; ATTEND Surgery
PROC: HZ2ZZZZ Detoxification Services for Substance Abuse Treatment (ICD-10-PCS; principal; 2019-04-30)
DX: F11.23 Opioid dependence with withdrawal (principal); F10.230 Alcohol dependence with withdrawal, uncomplicated; F17.210 Nicotine dependence, cigarettes, uncomplicated; F19.280 Other psychoactive substance dependence with psychoactive substance-induced anxiety disorder; F19.282 Other psychoactive substance dependence with psychoactive substance-induced sleep disorder; L03.114 Cellulitis of left upper limb; L02.414 Cutaneous abscess of left upper limb; Z86.69 Personal history of other diseases of the nervous system and sense organs
CPT/HCPCS: 36415; 80053; 85027; 86593

== ENCOUNTER 2019-06-18 16:56 | Inpatient (IN) | payer OTHER | END 2019-06-20 16:04 | disposition left against medical advice (07) | LOC: JER 16:56 → JERBED 19:57 → J6S 06-19 14:22 ==

== ENCOUNTER 2019-10-12 10:12 | Inpatient (IN) | payer OTHER ==
--- NOTE | 2019-10-12 10:26 | PDOC ---
History of Present Illness - General Chief Complaint: Overdose Stated Complaint: OVERDOSE Time Seen by Provider: 10/12/19 10:26 History Source: Patient, EMS Exam Limitations: Unresponsive - History of Present Illness Initial Comments: 10/12/19 10:27 24yM w PMHx substance abuse (heroin, benzo, cocaine), seizure presenting w altered mental status. Limited exam d/t pt altered. Friend gave pt unknown substance at unknown time, also endorsed taking 3 xanax, grandmother found him by bed with vomit and unresponsive. Received 0.5 IV narcan at 10a en route to ED. Past History - Past Medical History Allergies/Adverse Reactions: Allergies Allergy/AdvReac Type Severity Reaction Status Date / Time No Known Allergies Allergy Verified 06/18/19 17:06 Home Medications: Ambulatory Orders Quetiapine Fumarate [Seroquel -] 50 mg PO HS 04/30/19 Naloxone HCl [Narcan] 4 mg NS PRN #1 spray 05/01/19 Buprenorphine HCl/Naloxone HCl [Suboxone 8 mg-2 mg Sl Tablets] 1 each SL DAILY 06/18/19 Amox-Tr/K Cl [Augmentin - 875Mg Tablet] 1 tab PO BID 8 Days #16 tablet 06/20/19 levETIRAcetam [Keppra -] 500 mg PO BID 30 Days #60 tablet 06/20/19 Anemia: No Asthma: Yes Cancer: No Cardiac Disorders: No CVA: No COPD: No CHF: No Dementia: No Diabetes: No GI Disorders: No Disorders: No HTN: Yes (goes up when withdrawing.) Hypercholesterolemia: No Kidney Stones: No Liver Disease: No Psychiatric Problems: Yes (anxiety,depression) Seizures: Yes (heroin induced) Thyroid Disease: No - Surgical History Abdominal Surgery: No Appendectomy: No Cardiac Surgery: No Cholecystectomy: No Lung Surgery: No Neurologic Surgery: No Orthopedic Surgery: Yes (SHOULDER RECONSTRUCTIOM s/p 1st seizure) - Reproductive History Testicular Surgery: No - Immunization History Immunization Up to Date: Yes - Psycho Social/Smoking Cessation Hx Smoking History: Current every day smoker Have you smoked in the past 12 months: Yes Number of Cigarettes Smoked Daily: 20 'Breaking Loose' booklet given: 04/30/19 Hx Alcohol Use: Yes Drug/Substance Use Hx: Yes Substance Use Type: Alcohol, Heroin, Marijuana, Opiates, Prescribed, Tranquilizers Hx Substance Use Treatment: Yes Review of Systems - Review of Systems Able to Perform ROS?: No (unresponsive) *Physical Exam - Physical Exam General Appearance: Yes: Nourished, Appropriately Dressed, Mild Distress HEENT: positive: ARIANA (constricted 2mm katlin ). negative: Scleral Icterus (R), Scleral Icterus (L), Nasal Congestion Respiratory/Chest: positive: Crackles (LLL). negative: Chest Tender, Respiratory Distress, Accessory Muscle Use, Labored Respiration, Rhonchi, Stridor, Wheezing Cardiovascular: positive: Regular Rhythm, Regular Rate, S1, S2. negative: Edema , Murmur Gastrointestinal/Abdominal: positive: Normal Bowel Sounds, Flat, Soft. negative : Tender, Organomegaly Musculoskeletal: positive: Normal Inspection, Other (no stepoffs/bony deformity) . negative: Muscle Spasm, Vertebral Tenderness Extremity: positive: Normal Capillary Refill Integumentary: positive: Normal Color, Other (no abrasions). negative: Rash, Ecchymosis, Bruising Neurologic: positive: Respond to painful stimul (responsive to sternal rub/ painful stimuli) ED Treatment Course - LABORATORY CBC & Chemistry Diagram: 10/12/19 18:25 10/12/19 18:25 Medical Decision Making - Medical Decision Making 10/12/19 10:36 CXR shows weak inspiration, no acute pathology EKG NSR, TWI V1, HR 80, QTc 415, no ST changes glucose 115 CBC, UA normal Utox + THC, opioid, benzos --- 24yM w PMHx substance abuse (heroin, benzo, cocaine), seizure presenting w altered mental status d/t heroin/benzo overdose (miosis, hx heroin use, responded to narcan, + utox). O2sat wnl, respiratory rate >12, hemodynamically stable. Low concern for hypoglycemia (normal glucose) vs aspiration PNA (no infiltrates), non-concerning EKG. Given total 1mg narcan, 1L NS Signed off to night team Dispo pending mental status, labs - pending CMP, lactate, tylenol, salicylate, TSH, head CT - ensure pt spontaneously breathing RR > 12, give supplemental O2 if hypoxic - needs to walk unassisted, become more alert/oriented to consider DC home Discharge - Discharge Information Problems reviewed: Yes Clinical Impression/Diagnosis: Benzodiazepine abuse Heroin overdose Qualifiers: Encounter type: initial encounter Injury intent: intentional self-harm Qualified Code(s): T40.1X2A - Poisoning by heroin, intentional self-harm, initial encounter Condition: Stable - Follow up/Referral Referrals: Flakita Blake MD [Primary Care Provider] - - Patient Discharge Instructions Patient Printed Discharge Instructions: DI for Opioid Addiction Additional Instructions: You were seen for - Post Discharge Activity
[2019-10-12 10:31] VITALS: BMI 25.8
--- NOTE | 2019-10-12 10:51 | PDOC ---
Attending Attestation - Resident Resident Name: Ruel Solo - ED Attending Attestation I have performed the following: I have examined & evaluated the patient, The case was reviewed & discussed with the resident, I agree w/resident's findings & plan, Exceptions are as noted - HPI HPI: 10/12/19 10:40 24 M with h/o polysubstance abuse, presenting to ED with likely overdose. Per EMS, grandmother encountered pt unresponsive on his bedroom floor. EMS administered narcan in the field with good response. Pt subsequently woke up and became agitated. Upon arrival to ED, pt had fallen back asleep. Is protecting his airway with good respiratory rate. Responsive to painful stimuli but unable to contribute any history. - Physicial Exam PE: 10/12/19 10:51 GENERAL: Asleep, responsive to painful stimuli, in no acute distress. HEAD: No signs of trauma EYES: PERRLA, EOMI, sclera anicteric, conjunctiva clear ENT: Auricles normal inspection, hearing grossly normal, nares patent, oropharynx clear without exudates. Moist mucosa NECK: Nontender, no stepoffs, Normal ROM, supple, no lymphadenopathy, JVD, or masses LUNGS: Breath sounds equal, clear to auscultation bilaterally. No wheezes, and no crackles HEART: Regular rate and rhythm, normal S1 and S2, no murmurs, rubs or gallops ABDOMEN: Soft, nontender, normoactive bowel sounds. No guarding, no rebound. No masses EXTREMITIES: Normal range of motion, no edema. No clubbing or cyanosis. No cords, erythema, or tenderness NEUROLOGICAL: Cranial nerves II through XII intact. 5/5 strength and sensation in all extremities SKIN: Warm, Dry, normal turgor, no rashes or lesions noted. - Medical Decision Making 10/12/19 10:51 24 M with likely opiate overdose. Responded in field to narcan. Now with normal respiratory rate, still somnolent. No signs of trauma on exam. - Monitor in ED until sober
--- NOTE | 2019-10-12 11:49 | EKG ---
Test Reason : Blood Pressure : / mmHG Vent. Rate : 080 BPM Atrial Rate : 080 BPM P-R Int : 152 ms QRS Dur : 090 ms QT Int : 360 ms P-R-T Axes : 066 076 055 degrees QTc Int : 415 ms NORMAL SINUS RHYTHM NORMAL ECG WHEN COMPARED WITH ECG OF 18-JUN-2019 20:59, NO SIGNIFICANT CHANGE WAS FOUND Confirmed by RIAZ PLATA MD ([id number]) on 10/12/2019 11:49:23 AM Referred By: Confirmed By:RIAZ PLATA MD
[2019-10-12] MEDS ORDERED: NALOXONE HCL 0.4 MG/ML VIAL IVPUSH ONE ×2 (17:09→23:55)
[2019-10-12] MEDS ORDERED: NALOXONE HCL 0.4 MG/ML VIAL ONE (17:12)
[2019-10-12] MEDS ORDERED: SODIUM CHLORIDE 0.9% 1000 ML INFUS.BAG IV ONE (18:16)
--- NOTE | 2019-10-12 18:19 | PDOC ---
*Physical Exam - Vital Signs Last Vital Signs Temp Pulse Resp BP Pulse Ox 98.7 F 85 16 105/68 100 10/12/19 17:00 10/12/19 17:00 10/12/19 17:00 10/12/19 17:00 10/12/19 17:00 ED Treatment Course - LABORATORY CBC & Chemistry Diagram: 10/12/19 18:25 10/12/19 18:25 - ADDITIONAL ORDERS Additional order review: Laboratory Results 10/12/19 10:39 POC Glucometer 115 10/12/19 10:39 POC Glucometer 115 - RADIOLOGY Radiology Studies Ordered: Category Date Time Status HEAD CT WITHOUT CONTRAST [CT] Stat CT Scan 10/12/19 18:16 Ordered CHEST X-RAY PORTABLE* [RAD] Stat Radiology 10/12/19 18:15 Ordered - Medications Given in the ED: ED Medications Discontinued Medications Generic Name Dose Route Start Last Admin Trade Name Freq PRN Reason Stop Dose Admin Naloxone HCl 0.5 mg 10/12/19 17:09 10/12/19 17:14 Narcan - IVPUSH 10/12/19 17:10 0.5 mg ONCE ONE Administration Medical Decision Making - Medical Decision Making 10/12/19 18:18 pt signed out after receiving narcan for heroin OD. Pt has been sleeping in the ER for 7 hours. Pt again given narcan 2nd to only responsive to sternal rub/ tactile stimuli -pt currently altered -agitated -pt unsure where he is and what happened today -will send labs, ivf hydration, ct head -will monitor and reassess 10/12/19 19:50 no acute findings on head ct labs reviewed cxr clear ua neg uds +opiates, benzos, marijuana 10/12/19 20:27 pt still metabolizing, still confused will admit patient for altered ms 10/12/19 22:24 resident discussed the case with maegan who accepts pt to service Discharge - Discharge Information Problems reviewed: Yes Clinical Impression/Diagnosis: Benzodiazepine abuse, Altered mental status Heroin overdose Qualifiers: Encounter type: initial encounter Injury intent: intentional self-harm Qualified Code(s): T40.1X2A - Poisoning by heroin, intentional self-harm, initial encounter Condition: Stable - Admission Yes - Follow up/Referral Referrals: Flakita Blake MD [Primary Care Provider] - - Patient Discharge Instructions Patient Printed Discharge Instructions: DI for Opioid Addiction Additional Instructions: You were seen for - Post Discharge Activity
[2019-10-12 18:54] LABS: BASO % 0.2 % (0-2.0); EOS % 1.3 % (0-4.5); HEMATOCRIT 43.5 % (35.4-49); HEMOGLOBIN 14.5 GM/dL (11.7-16.9); LYMPH % 21.4 % (8-40); MCHC 33.3 g/dl (32.0-35.9); MEAN CELL VOLUME 84.1 fl (80-96); MEAN PLT VOLUME 9.2 fl (7.5-11.1); MONO % 9.9 % (3.8-10.2); NEUT % 67.2 % (42.8-82.8); PLATELET COUNT 195 K/MM3 (134-434); RBC 5.17 M/mm3 (4.00-5.60); RDW 14.2 % (11.9-15.9); WHITE BLOOD COUNT 10.1 K/mm3 (4.0-10.0)
[2019-10-12 18:55] LABS: URINE APPEARANCE CLEAR; URINE BILIRUBIN NEGATIVE (NEGATIVE); URINE COLOR YELLOW; URINE GLUCOSE (UA) NEGATIVE (NEGATIVE); URINE KETONE NEGATIVE (NEGATIVE); URINE LEUK ESTERASE NEGATIVE (NEGATIVE); URINE NITRITE NEGATIVE (NEGATIVE); URINE PROTEIN NEGATIVE (NEGATIVE); URINE UROBILINOGEN 0.2 mg/dL (0.2-1.0)
[2019-10-12 19:11] LABS: COCAINE, UR NEGATIVE ng/ml (CUTOFF=300); METHADONE, UR NEGATIVE ng/ml (CUTOFF=300); PHENCYCLIDINE,URINE NEGATIVE ng/ml (CUTOFF=25); URINE AMPHETAMINES NEGATIVE ng/ml (CUTOFF=500); URINE BARBITURATES NEGATIVE ng/ml (CUTOFF=200)
--- NOTE | 2019-10-12 19:16 | PDOC ---
*Physical Exam - Vital Signs Last Vital Signs Temp Pulse Resp BP Pulse Ox 97.6 F 83 18 117/74 98 10/12/19 18:46 10/12/19 18:46 10/12/19 18:46 10/12/19 18:46 10/12/19 18:46 ED Treatment Course - LABORATORY CBC & Chemistry Diagram: 10/13/19 05:20 10/13/19 05:20 - ADDITIONAL ORDERS Additional order review: Laboratory Results 10/12/19 10/12/19 10/12/19 18:25 18:25 10:39 POC Glucometer 115 Urine Color Yellow Urine Appearance Clear Urine pH 7.0 D Ur Specific [place] 1.013 Urine Protein Negative Urine Glucose (UA) Negative Urine Ketones Negative Urine Blood Negative Urine Nitrite Negative Urine Bilirubin Negative Urine Urobilinogen 0.2 Ur Leukocyte Esterase Negative Methadone Screen Negative Barbiturate Screen Negative Phencyclidine Screen Negative Ur Amphetamines Screen Negative MDMA (Ecstasy) Screen Negative Cocaine Screen Negative 10/12/19 10/12/19 18:25 10:39 RBC 5.17 MCV 84.1 MCHC 33.3 RDW 14.2 MPV 9.2 Neutrophils % 67.2 Lymphocytes % 21.4 D Monocytes % 9.9 Eosinophils % 1.3 Basophils % 0.2 POC Glucometer 115 - Medications Given in the ED: ED Medications Discontinued Medications Generic Name Dose Route Start Last Admin Trade Name Magenq PRN Reason Stop Dose Admin Naloxone HCl 0.5 mg 10/12/19 17:09 10/12/19 17:14 Narcan - IVPUSH 10/12/19 17:10 0.5 mg ONCE ONE Administration Sodium Chloride 1,000 ml 10/12/19 18:16 10/12/19 18:33 Normal Saline - IV 10/12/19 18:17 1,000 ml ONCE ONE Administration Medical Decision Making - Medical Decision Making 10/12/19 20:13 Received sign out from Dr Solo. 24yM hxsubstance abuse (heroin, benzo, cocaine), seizure presenting w/AMS 2/2 likely heroin/benzo overdose (miosis, hx heroin use, responded to narcan, + utox ). VSS, non-concerning EKG. Given total 1mg narcan, 1L NS Pending labs and CTH, reassess mental status and ability to walk and likely admit for AMS. Pt seen and assessed at bedside. Responsive to verbal, grunts, incomprehensible words. VSS. Labs reviewed. Labs notable for benzodiazepine, THC, opiates. CXR reviewed: weak inspiration, no acute pathology CTH reviewed: no acute pathology Will admit to tele. PCP - Flakita Blake, admits to hospitalist. Microblog sent. 10/12/19 22:18 Signed out to admitting resident Fauzia. Discharge - Discharge Information Problems reviewed: Yes Clinical Impression/Diagnosis: Benzodiazepine abuse, Altered mental status Heroin overdose Qualifiers: Encounter type: initial encounter Injury intent: intentional self-harm Qualified Code(s): T40.1X2A - Poisoning by heroin, intentional self-harm, initial encounter Condition: Stable - Admission Yes - Follow up/Referral - Patient Discharge Instructions - Post Discharge Activity
[2019-10-12 19:19] LABS: OPIATES, URI POSITIVE ng/ml (CUTOFF=300); URINE BENZODIAZEPINES POSITIVE ng/ml (CUTOFF=200)
[2019-10-12 19:26] LABS: ALBUMIN 4.2 g/dl (3.4-5.0); BILIRUBIN,TOTAL 0.5 mg/dL (0.2-1); BLOOD UREA NITROGEN 15.3 mg/dL (7-18); CALCIUM 9.4 mg/dL (8.5-10.1); CREATININE 1.1 mg/dL (0.55-1.3); TOT PROT 7.4 g/dl (6.4-8.2)
[2019-10-12 19:32] LABS: MAGNESIUM 2.5 mg/dL (1.8-2.4)
--- NOTE | 2019-10-12 20:25 | PN ---
Teaching Attending Note Name of Resident: Fauzia Clifford ATTENDING PHYSICIAN STATEMENT I saw and evaluated the patient. I reviewed the resident's note and discussed the case with the resident. I agree with the resident's findings and plan as documented. SUBJECTIVE: Patient is a 24 year old man with a PMH of Anxiety, Depression, Tobacco use, Polysubstance abuse (heroin, benzo, cocaine) and seizure presenting after being found unresponsive by his mother. AMS likely due to drug overdose. Had miosis, responded to narcan given by EMS. Patient unable to provide additional information in view of AMS. OBJECTIVE: Responsive to sternal rub Vital Signs Period Temp Pulse Resp BP Sys/Velasquez Pulse Ox Last 24 Hr 97.4 F-98.7 F 72-89 16-18 105-118/54-76 98-100 HEENT: No Jaundice, eye redness or discharge, PERRLA, Normocephalic, atraumatic. External ears are normal. No nasal discharge. Neck: Supple, nontender. No palpable adenopathy or thyromegaly. No JVD Chest: Good effort. Clear to auscultation and percussion. Heart: Regular. No S3, rub or murmur Abdomen: Not distended, soft, nontender and no HSM. No rebound or guarding. Normal bowel sounds. Ext: Peripheral pulses intact. No leg edema. Skin: Warm and dry. No petechiae, rash or ecchymosis. Neuro: Responsive to sternal rub with grunts. CN 2-12 grossly intact. Sensation grossly intact in all four extremities and DTR are symmetric. Psych: Unable to assess. Home Medications Medication Instructions Recorded Quetiapine Fumarate [Seroquel -] 50 mg PO HS 04/30/19 Naloxone HCl [Narcan] 4 mg NS PRN #1 spray 05/01/19 Buprenorphine HCl/Naloxone HCl 1 each SL DAILY 06/18/19 [Suboxone 8 mg-2 mg Sl Tablets] Amox-Tr/K Cl [Augmentin - 875Mg 1 tab PO BID 8 Days #16 tablet 06/20/19 Tablet] levETIRAcetam [Keppra -] 500 mg PO BID 30 Days #60 tablet 06/20/19 Abnormal Lab Results 10/12/19 10/12/19 10/12/19 18:25 18:25 18:25 WBC 10.1 H Anion Gap 5 L Magnesium 2.5 H AST 111 H Opiates Screen Benzodiazepines Screen U Marijuana (THC) Screen 10/12/19 18:25 WBC Anion Gap Magnesium AST Opiates Screen Positive A* Benzodiazepines Screen Positive A* U Marijuana (THC) Screen Positive A* ASSESSMENT AND PLAN: 1. AMS due to drug overdose - No acute intracranial pathology noted on head CT. No acute abnormality noted on CXR. Urine toxicology showed benzodiazepines, opiates and marijuana. Will continue IV NS, supportive care and Narcan. Monitor closely for drug withdrawal. Implement [facility] librium alcohol withdrawal protocol and do neurochecks. Implement seizure, fall and aspiration precautions. Treat with thiamine and folic acid and monitor electrolytes (Ca,Mg, K,P). When he is alert, will residential treatment counselor patient about abstaining from illicit drugs /alcohol. Will consult senior talent acquisition specialist and refer to alcohol/drug detox upon discharge. His mother says he has not been taking his Keppra. Will continue comprehensive care for all of patients comorbid conditions, load with 1000 mg IV Keppra and continue 500 mg bid. 2. Tobacco Use Once awake, will residential treatment counselor him on risks associated with tobacco use. We will provide patient all the necessary assistance to facilitate smoking cessation and prescribe Nicotine patch. 3. DVT prophylaxis - Lovenox 40 mg SQ q 24 hours. 4. Advance directives - Full code
--- NOTE | 2019-10-13 00:23 | HP ---
CHIEF COMPLAINT: drug overdose PCP: Flakita Blake HISTORY OF PRESENT ILLNESS: 24 yo M PMH of substance abuse, withdrawal seizures BIBEMS for unresponsiveness. pt was found by family at home unresponsive with vomit. pt was given 0.5 mg of narcan en route and 0.5 mg of narcan in ED and has become more responsive. when seen, pt was lethargic and not able to respond to questions. pt acknowledges using heroin via IV . ER course was notable for: (1)narcan 0.5 en route, 0.5 in ED Recent Travel: denies PAST MEDICAL HISTORY: see HPI PAST SURGICAL HISTORY: Social History: Smoking:unknown Alcohol:yes Drugs: heroin, benzos, cocaine Allergies No Known Allergies Allergy (Verified 06/18/19 17:06) HOME MEDICATIONS: Home Medications Medication Instructions Recorded Quetiapine Fumarate [Seroquel -] 50 mg PO HS 04/30/19 Naloxone HCl [Narcan] 4 mg NS PRN #1 spray 05/01/19 Buprenorphine HCl/Naloxone HCl 1 each SL DAILY 06/18/19 [Suboxone 8 mg-2 mg Sl Tablets] Amox-Tr/K Cl [Augmentin - 875Mg 1 tab PO BID 8 Days #16 tablet 06/20/19 Tablet] levETIRAcetam [Keppra -] 500 mg PO BID 30 Days #60 tablet 06/20/19 REVIEW OF SYSTEMS: unable to obtain as pt is altered. PHYSICAL EXAMINATION Vital Signs - 24 hr 10/12/19 10/12/19 10/12/19 10:15 10:24 13:39 Temperature 97.4 F L Pulse Rate 89 Pulse Rate [ 74 72 Left Apical] Respiratory 16 16 16 Rate Blood Pressure 111/54 L Blood Pressure 118/76 110/61 [Left Arm] O2 Sat by Pulse 98 98 98 Oximetry (%) 10/12/19 10/12/19 10/12/19 17:00 18:46 23:56 Temperature 98.7 F 97.6 F Pulse Rate Pulse Rate [ 85 83 86 Left Apical] Respiratory 16 18 18 Rate Blood Pressure Blood Pressure 105/68 117/74 108/67 [Left Arm] O2 Sat by Pulse 100 98 99 Oximetry (%) GENERAL: lethargic, responsive to verbal stimuli, and oriented to person and time, in no acute distress. HEAD: Normal with no signs of trauma. EYES: Pupils equal, round and reactive to light, extraocular movements intact EARS, NOSE, THROAT:oropharynx clear without exudates. Moist mucous membranes. poor hygiene NECK: Normal range of motion, supple without lymphadenopathy, JVD, or masses. LUNGS: Breath sounds equal, clear to auscultation bilaterally. No wheezes, and no crackles. No accessory muscle use. HEART: Regular rate and rhythm, normal S1 and S2 without murmur, rub or gallop. ABDOMEN: Soft, nontender, not distended, normoactive bowel sounds MUSCULOSKELETAL: Normal range of motion at all joints. No bony deformities or tenderness. No CVA tenderness. UPPER EXTREMITIES: 2+ pulses, warm, well-perfused. No cyanosis. No clubbing. No peripheral edema. LOWER EXTREMITIES: 2+ pulses, warm, well-perfused. No calf tenderness. No peripheral edema. SKIN: Warm, dry, normal turgor, no rashes or lesions noted, normal capillary refill. Laboratory Last Values WBC 10.1 K/mm3 (4.0-10.0) H 10/12/19 18:25 RBC 5.17 M/mm3 (4.00-5.60) 10/12/19 18:25 Hgb 14.5 GM/dL (11.7-16.9) 10/12/19 18:25 Hct 43.5 % (35.4-49) 10/12/19 18:25 MCV 84.1 fl (80-96) 10/12/19 18:25 MCH 28.0 pg (25.7-33.7) 10/12/19 18:25 MCHC 33.3 g/dl (32.0-35.9) 10/12/19 18:25 RDW 14.2 % (11.9-15.9) 10/12/19 18:25 Plt Count 195 K/MM3 (134-434) 10/12/19 18:25 MPV 9.2 fl (7.5-11.1) 10/12/19 18:25 Absolute Neuts (auto) 6.8 K/mm3 (1.5-8.0) 10/12/19 18:25 Neutrophils % 67.2 % (42.8-82.8) 10/12/19 18:25 Lymphocytes % 21.4 % (8-40) D 10/12/19 18:25 Monocytes % 9.9 % (3.8-10.2) 10/12/19 18:25 Eosinophils % 1.3 % (0-4.5) 10/12/19 18:25 Basophils % 0.2 % (0-2.0) 10/12/19 18:25 Nucleated RBC % 0 % (0-0) 10/12/19 18:25 Sodium 141 mmol/L (136-145) 10/12/19 18:25 Potassium 4.0 mmol/L (3.5-5.1) 10/12/19 18:25 Chloride 106 mmol/L (98-107) 10/12/19 18:25 Carbon Dioxide 30 mmol/L (21-32) 10/12/19 18:25 Anion Gap 5 MMOL/L (8-16) L 10/12/19 18:25 BUN 15.3 mg/dL (7-18) 10/12/19 18:25 Creatinine 1.1 mg/dL (0.55-1.3) 10/12/19 18:25 Est GFR (CKD-EPI)AfAm 109.86 10/12/19 18:25 Est GFR (CKD-EPI)NonAf 94.79 10/12/19 18:25 POC Glucometer 115 UNITS (80-120) 10/12/19 10:39 Random Glucose 97 mg/dL (74-106) 10/12/19 18:25 Lactic Acid 2.0 mmol/L (0.4-2.0) 10/12/19 18:25 Calcium 9.4 mg/dL (8.5-10.1) 10/12/19 18:25 Magnesium 2.5 mg/dL (1.8-2.4) H 10/12/19 18:25 Total Bilirubin 0.5 mg/dL (0.2-1) 10/12/19 18:25 AST 111 U/L (15-37) H 10/12/19 18:25 ALT 39 U/L (13-61) 10/12/19 18:25 Alkaline Phosphatase 107 U/L (45-117) 10/12/19 18:25 Total Protein 7.4 g/dl (6.4-8.2) 10/12/19 18:25 Albumin 4.2 g/dl (3.4-5.0) 10/12/19 18:25 TSH 0.55 uIU/ml (0.358-3.74) 10/12/19 18:25 Urine Color Yellow 10/12/19 18:25 Urine Appearance Clear 10/12/19 18:25 Urine pH 7.0 (5.0-8.0) D 10/12/19 18:25 Ur Specific [place] 1.013 (1.010-1.035) 10/12/19 18:25 Urine Protein Negative (NEGATIVE) 10/12/19 18:25 Urine Glucose (UA) Negative (NEGATIVE) 10/12/19 18:25 Urine Ketones Negative (NEGATIVE) 10/12/19 18:25 Urine Blood Negative (NEGATIVE) 10/12/19 18:25 Urine Nitrite Negative (NEGATIVE) 10/12/19 18:25 Urine Bilirubin Negative (NEGATIVE) 10/12/19 18:25 Urine Urobilinogen 0.2 mg/dL (0.2-1.0) 10/12/19 18:25 Ur Leukocyte Esterase Negative (NEGATIVE) 10/12/19 18:25 Opiates Screen Positive ng/ml (IPESGR=967) A* 10/12/19 18:25 Methadone Screen Negative ng/ml (QNWNJF=574) 10/12/19 18:25 Acetaminophen <2.0 10/12/19 18:25 Barbiturate Screen Negative ng/ml (TXNKFQ=638) 10/12/19 18:25 Phencyclidine Screen Negative ng/ml (CUTOFF=25) 10/12/19 18:25 Ur Amphetamines Screen Negative ng/ml (RJEZGI=551) 10/12/19 18:25 MDMA (Ecstasy) Screen Negative ng/ml (GPEBTI=936) 10/12/19 18:25 Benzodiazepines Screen Positive ng/ml (NQBSQL=961) A* 10/12/19 18:25 Cocaine Screen Negative ng/ml (FAUJCI=855) 10/12/19 18:25 U Marijuana (THC) Screen Positive ng/ml (CUTOFF=50) A* 10/12/19 18:25 ASSESSMENT/PLAN: 24 yo M PMH of substance abuse presenting for overdose Overdose -Utox positive for opiates, bzo, and marijuana -pending alcohol level - s/p 1 mg narcan, will give 0.5 more - IVF -folate, thiamine, multivitamin - consider Echo to eval valves since pt is IV drug user - seizure precautions -CIWA and COWS monitoring F/E/N -monitor lytes -regular diet -c/w IVF DVT ppx: Lovenox Dispo: admit to med/surg Visit type - Emergency Visit Emergency Visit: Yes ED Registration Date: 10/12/19 Care time: The patient presented to the Emergency Department on the above date and was hospitalized for further evaluation of their emergent condition. - New Patient This patient is new to me today: Yes Date on this admission: 10/16/19 - Critical Care Critical Care patient: No ATTENDING PHYSICIAN STATEMENT I saw and evaluated the patient. I reviewed the resident's note and discussed the case with the resident. I agree with the resident's findings and plan as documented. SUBJECTIVE: OBJECTIVE: ASSESSMENT AND PLAN:
[2019-10-13] MEDS ORDERED: NALOXONE HCL 0.4 MG/ML VIAL ONE (01:14)
[2019-10-13] MEDS ORDERED: levETIRAcetam 500 MG/5 ML INJECTION VIAL IVPB ONE ×3 (02:08→03:46)
[2019-10-13] MEDS ORDERED: LORazepam 2 MG/ML SDV VIAL IVPUSH PRN (05:11)
[2019-10-13] MEDS ORDERED: SODIUM CHLORIDE 1,000 ML IV SCH ×2 (06:30)
[2019-10-13 06:49] LABS: BASO % 0.2 % (0-2.0); HEMATOCRIT 40.4 % (35.4-49); HEMOGLOBIN 13.6 GM/dL (11.7-16.9); LYMPH % 17.4 % (8-40); MCH 27.7 pg (25.7-33.7); MCHC 33.6 g/dl (32.0-35.9); MEAN CELL VOLUME 82.6 fl (80-96); MEAN PLT VOLUME 9.4 fl (7.5-11.1); MONO % 6.6 % (3.8-10.2); NEUT % 74.8 % (42.8-82.8); PLATELET COUNT 195 K/MM3 (134-434); RBC 4.89 M/mm3 (4.00-5.60); RDW 13.7 % (11.9-15.9); WHITE BLOOD COUNT 9.3 K/mm3 (4.0-10.0)
[2019-10-13 07:06] LABS: ALBUMIN 3.6 g/dl (3.4-5.0); BILIRUBIN,TOTAL 0.6 mg/dL (0.2-1); BLOOD UREA NITROGEN 13.9 mg/dL (7-18); CREATININE 0.8 mg/dL (0.55-1.3); MAGNESIUM 2.1 mg/dL (1.8-2.4); PHOSPHOROUS 3.4 mg/dL (2.5-4.9); TOT PROT 6.9 g/dl (6.4-8.2)
--- NOTE | 2019-10-13 07:46 | PN ---
Progress Note (short form) - Note Progress Note: 24 yo M PMH of substance abuse, withdrawal seizures BIBEMS for unresponsiveness. pt was found by family at home unresponsive with vomit. pt was given 0.5 mg of narcan en route and 0.5 mg of narcan in ED and has become more responsive. Pt acknowledges using heroin via IV . Examined in bed in ICU ([facility]). Drowsy but arousable. Pt states he experiencing withdrawal symptoms. Not tachycardic, no tremors noticed. On [facility] detox protocol. women specialist consult placed with Dr. Sanders/Ольга. Pt refusing in patient rehab after detox is completed. Stated he has failed suboxone treatment in the past and would like to try methadone now. Mother expressed concern about patient returning back home after detox is completed- stated she will not take him home on discharge. Problem List - Problems (1) Prophylactic measure Code(s): Z29.9 - ENCOUNTER FOR PROPHYLACTIC MEASURES, UNSPECIFIED (2) Polysubstance abuse Code(s): F19.10 - OTHER PSYCHOACTIVE SUBSTANCE ABUSE, UNCOMPLICATED (3) Polysubstance overdose Code(s): T50.901A - POISONING BY UNSP DRUG/MEDS/BIOL SUBST, ACCIDENTAL, INIT Visit type - Emergency Visit Emergency Visit: Yes ED Registration Date: 10/12/19 Care time: The patient presented to the Emergency Department on the above date and was hospitalized for further evaluation of their emergent condition. - New Patient This patient is new to me today: Yes Date on this admission: 10/13/19 - Critical Care Critical Care patient: No - Discharge Referral Referred to [facility] Med P.C.: No
--- NOTE | 2019-10-13 08:50 | CONSULT ---
Consult - text type - Consultation Consultation Note: Neurology CHIEF COMPLAINT: drug overdose PCP: Flakita Blake HISTORY OF PRESENT ILLNESS: 24 yo M who is well-known to the from both inpatient admissions and outpatient office follow-ups. He has PMH of substance abuse, seizures iin the context of substance abuse, BIBEMS for unresponsiveness. According to notes, pt was found by family at home unresponsive with vomit. He was given 0.5 mg of narcan en route and 0.5 mg of narcan in ED and has become more responsive. Utox found to be positive for opiates, benzodiazepines, and marijuana. Patient seen this morning, fatigued appearing but arousable and conversive. Reports that he is been using drugs regularly although we have had many conversations and counseling in order for him to stop using toxic substances. At last office visit , he did not want to take Keppra any longer and has not been taking the medication. No indication that he had a seizure and it does not seem that Keppra would prevent his seizure in the context of substance abuse causing ictal events. Given his history, seizure risk will likely remain unless he stops substance abuse. Recent Travel: denies PAST MEDICAL HISTORY: see HPI PAST SURGICAL HISTORY: None Social History: Smoking:unknown Alcohol:yes Drugs: heroin, benzos, cocaine Allergies No Known Allergies Allergy (Verified 06/18/19 17:06) Family:HTN Active Medications Enoxaparin Sodium (Lovenox -) 40 mg SQ DAILY GABO Folic Acid (Folic Acid -) 1 mg PO DAILY GABO Sodium Chloride (Normal Saline -) 1,000 mls @ 125 mls/hr IV ASDIR GABO Lorazepam (Ativan Injection -) 1 mg IVPUSH Q6H PRN PRN Reason: ANXIETY Multivitamins/Minerals/Vitamin C (Tab-A-Vit -) 1 tab PO DAILY GABO Thiamine HCl (Vitamin B1 -) 100 mg PO DAILY GABO REVIEW OF SYSTEMS CONSTITUTIONAL: Absent: fever, chills, diaphoresis, + generalized weakness, malaise HEENT: Absent: rhinorrhea, nasal congestion, throat pain, throat swelling, difficulty swallowing, mouth swelling, ear pain, eye pain, visual changes CARDIOVASCULAR: Absent: chest pain, syncope, palpitations, irregular heart rate, lightheadedness , peripheral edema RESPIRATORY: Absent: cough, shortness of breath, dyspnea with exertion, orthopnea, wheezing, stridor, hemoptysis GASTROINTESTINAL: Absent: abdominal pain, abdominal distension, nausea GENITOURINARY: Absent: dysuria, frequency, urgency, MUSCULOSKELETAL: Absent: myalgia, SKIN: Absent: rash, itching, pallor HEMATOLOGIC/IMMUNOLOGIC: Absent: easy bleeding, easy bruising, lymphadenopathy, frequent infections ENDOCRINE: Absent: unexplained weight gain, unexplained weight loss, heat intolerance, cold intolerance NEUROLOGIC: Absent: headache, focal weakness or paresthesias, dizziness, seizure, PSYCHIATRIC: Absent: anxiety, depression, suicidal or homicidal ideation, hallucinations. PHYSICAL EXAMINATION CBCD WBC 9.3 K/mm3 (4.0-10.0) 10/13/19 05:20 RBC 4.89 M/mm3 (4.00-5.60) 10/13/19 05:20 Hgb 13.6 GM/dL (11.7-16.9) 10/13/19 05:20 Hct 40.4 % (35.4-49) 10/13/19 05:20 MCV 82.6 fl (80-96) 10/13/19 05:20 MCHC 33.6 g/dl (32.0-35.9) 10/13/19 05:20 RDW 13.7 % (11.9-15.9) 10/13/19 05:20 Plt Count 195 K/MM3 (134-434) 10/13/19 05:20 MPV 9.4 fl (7.5-11.1) 10/13/19 05:20 CMP Sodium 142 mmol/L (136-145) 10/13/19 05:20 Potassium 4.0 mmol/L (3.5-5.1) 10/13/19 05:20 Chloride 111 mmol/L (98-107) H 10/13/19 05:20 Carbon Dioxide 25 mmol/L (21-32) 10/13/19 05:20 Anion Gap 6 MMOL/L (8-16) L 10/13/19 05:20 BUN 13.9 mg/dL (7-18) 10/13/19 05:20 Creatinine 0.8 mg/dL (0.55-1.3) 10/13/19 05:20 Random Glucose 90 mg/dL (74-106) 10/13/19 05:20 Calcium 9.0 mg/dL (8.5-10.1) 10/13/19 05:20 Total Bilirubin 0.6 mg/dL (0.2-1) 10/13/19 05:20 AST 122 U/L (15-37) H 10/13/19 05:20 ALT 40 U/L (13-61) 10/13/19 05:20 Alkaline Phosphatase 101 U/L (45-117) 10/13/19 05:20 Total Protein 6.9 g/dl (6.4-8.2) 10/13/19 05:20 Albumin 3.6 g/dl (3.4-5.0) 10/13/19 05:20 GENERAL: aawake but fatigued appearing. HEAD: Normal with no signs of trauma. EYES: Pupils equal, round and reactive to light, extraocular movements intact EARS, NOSE, THROAT:oropharynx clear without exudates. Moist mucous membranes. poor hygiene NECK: Normal range of motion, supple without lymphadenopathy, JVD, or masses. LUNGS: Breath sounds equal, clear to auscultation bilaterally. No wheezes, and no crackles. No accessory muscle use. HEART: Regular rate and rhythm, normal S1 and S2 without murmur, rub or gallop. ABDOMEN: Soft, nontender, not distended, normoactive bowel sounds MUSCULOSKELETAL: Normal range of motion at all joints. No bony deformities or tenderness. No CVA tenderness. UPPER EXTREMITIES: 2+ pulses, warm, well-perfused. No cyanosis. No clubbing. No peripheral edema. LOWER EXTREMITIES: 2+ pulses, warm, well-perfused. No calf tenderness. No peripheral edema. Neuro: Awake, alert, moves all extremities equally, sensory intact, finger to nose intact,, no abnormal movements or seizure-like activity SKIN: Warm, dry, normal turgor, no rashes or lesions noted, normal capillary refill. Laboratory Last Values WBC 10.1 K/mm3 (4.0-10.0) H 10/12/19 18:25 RBC 5.17 M/mm3 (4.00-5.60) 10/12/19 18:25 Hgb 14.5 GM/dL (11.7-16.9) 10/12/19 18:25 Hct 43.5 % (35.4-49) 10/12/19 18:25 MCV 84.1 fl (80-96) 10/12/19 18:25 MCH 28.0 pg (25.7-33.7) 10/12/19 18:25 MCHC 33.3 g/dl (32.0-35.9) 10/12/19 18:25 RDW 14.2 % (11.9-15.9) 10/12/19 18:25 Plt Count 195 K/MM3 (134-434) 10/12/19 18:25 MPV 9.2 fl (7.5-11.1) 10/12/19 18:25 Absolute Neuts (auto) 6.8 K/mm3 (1.5-8.0) 10/12/19 18:25 Neutrophils % 67.2 % (42.8-82.8) 10/12/19 18:25 Lymphocytes % 21.4 % (8-40) D 10/12/19 18:25 Monocytes % 9.9 % (3.8-10.2) 10/12/19 18:25 Eosinophils % 1.3 % (0-4.5) 10/12/19 18:25 Basophils % 0.2 % (0-2.0) 10/12/19 18:25 Nucleated RBC % 0 % (0-0) 10/12/19 18:25 Sodium 141 mmol/L (136-145) 10/12/19 18:25 Potassium 4.0 mmol/L (3.5-5.1) 10/12/19 18:25 Chloride 106 mmol/L (98-107) 10/12/19 18:25 Carbon Dioxide 30 mmol/L (21-32) 10/12/19 18:25 Anion Gap 5 MMOL/L (8-16) L 10/12/19 18:25 BUN 15.3 mg/dL (7-18) 10/12/19 18:25 Creatinine 1.1 mg/dL (0.55-1.3) 10/12/19 18:25 Est GFR (CKD-EPI)AfAm 109.86 10/12/19 18:25 Est GFR (CKD-EPI)NonAf 94.79 10/12/19 18:25 POC Glucometer 115 UNITS (80-120) 10/12/19 10:39 Random Glucose 97 mg/dL (74-106) 10/12/19 18:25 Lactic Acid 2.0 mmol/L (0.4-2.0) 10/12/19 18:25 Calcium 9.4 mg/dL (8.5-10.1) 10/12/19 18:25 Magnesium 2.5 mg/dL (1.8-2.4) H 10/12/19 18:25 Total Bilirubin 0.5 mg/dL (0.2-1) 10/12/19 18:25 AST 111 U/L (15-37) H 10/12/19 18:25 ALT 39 U/L (13-61) 10/12/19 18:25 Alkaline Phosphatase 107 U/L (45-117) 10/12/19 18:25 Total Protein 7.4 g/dl (6.4-8.2) 10/12/19 18:25 Albumin 4.2 g/dl (3.4-5.0) 10/12/19 18:25 TSH 0.55 uIU/ml (0.358-3.74) 10/12/19 18:25 Urine Color Yellow 10/12/19 18:25 Urine Appearance Clear 10/12/19 18:25 Urine pH 7.0 (5.0-8.0) D 10/12/19 18:25 Ur Specific [place] 1.013 (1.010-1.035) 10/12/19 18:25 Urine Protein Negative (NEGATIVE) 10/12/19 18:25 Urine Glucose (UA) Negative (NEGATIVE) 10/12/19 18:25 Urine Ketones Negative (NEGATIVE) 10/12/19 18:25 Urine Blood Negative (NEGATIVE) 10/12/19 18:25 Urine Nitrite Negative (NEGATIVE) 10/12/19 18:25 Urine Bilirubin Negative (NEGATIVE) 10/12/19 18:25 Urine Urobilinogen 0.2 mg/dL (0.2-1.0) 10/12/19 18:25 Ur Leukocyte Esterase Negative (NEGATIVE) 10/12/19 18:25 Opiates Screen Positive ng/ml (RAVMTO=784) A* 10/12/19 18:25 Methadone Screen Negative ng/ml (XQDMMS=748) 10/12/19 18:25 Acetaminophen <2.0 10/12/19 18:25 Barbiturate Screen Negative ng/ml (WUCVEI=131) 10/12/19 18:25 Phencyclidine Screen Negative ng/ml (CUTOFF=25) 10/12/19 18:25 Ur Amphetamines Screen Negative ng/ml (MNFHCJ=249) 10/12/19 18:25 MDMA (Ecstasy) Screen Negative ng/ml (THLGRG=355) 10/12/19 18:25 Benzodiazepines Screen Positive ng/ml (PHOCMH=284) A* 10/12/19 18:25 Cocaine Screen Negative ng/ml (XLHIIX=170) 10/12/19 18:25 U Marijuana (THC) Screen Positive ng/ml (CUTOFF=50) A* 10/12/19 18:25 ASSESSMENT/PLAN: 24 yo M who is well-known to the from both inpatient admissions and outpatient office follow-ups. He has PMH of substance abuse, seizures iin the context of substance abuse, BIBEMS for unresponsiveness. According to notes, pt was found by family at home unresponsive with vomit. He was given 0.5 mg of narcan en route and 0.5 mg of narcan in ED and has become more responsive. Utox found to be positive for opiates, benzodiazepines, and marijuana. Patient seen this morning, fatigued appearing but arousable and conversive. Reports that he is been using drugs regularly although we have had many conversations and counseling in order for him to stop using toxic substances. At last office visit , he did not want to take Keppra any longer and has not been taking the medication. No indication that he had a seizure and it does not seem that Keppra would prevent his seizure in the context of substance abuse causing ictal events. Given his history, seizure risk will likely remain unless he stops substance abuse. Recommend substance abuse counceling, possibly inpatient admission though patient was not in agreement with this on last admission ( notes reviewed) and chose outpatient treatment program. Continue medical optimization, hydration, multivitamin, fluids. Echo ordered to evaluate for emboli,, no objection to this.
[2019-10-13] MEDS ORDERED: PT OWN MED DRAWER 7, Y5N ONE ×2 (09:36→18:06)
[2019-10-13] MEDS: FOLIC ACID 1 MG TABLET (FP) PO SCH (10:06)
[2019-10-13] MEDS: THIAMINE HCL 100 MG TABLET (FP) PO SCH (10:06)
[2019-10-13] MEDS: MULTIVITAMINS (DAILY MVI) TABLET (FP) PO SCH (10:06)
[2019-10-13] MEDS: ENOXAPARIN NA (PORCINE) 40 MG/0.4 ML DISP.SYRIN SQ SCH (10:06)
[2019-10-13] MEDS ORDERED: LORazepam 2 MG TABLET PO SCH (11:00)
[2019-10-13] MEDS ORDERED: LORazepam 1 MG TABLET PO PRN (13:21)
--- NOTE | 2019-10-13 13:21 | EKG ---
Test Reason : Blood Pressure : / mmHG Vent. Rate : 080 BPM Atrial Rate : 080 BPM P-R Int : 150 ms QRS Dur : 088 ms QT Int : 368 ms P-R-T Axes : 074 071 038 degrees QTc Int : 424 ms NORMAL SINUS RHYTHM NORMAL ECG WHEN COMPARED WITH ECG OF 12-OCT-2019 10:46, NO SIGNIFICANT CHANGE WAS FOUND Confirmed by RIAZ PLATA MD ([id number]) on 10/13/2019 1:20:45 PM Referred By: SUSANNA FERRERA Confirmed By:RIAZ PLATA MD
[2019-10-13] MEDS: LORazepam 1 MG TABLET PO SCH ×2 (17:12→23:32)
--- NOTE | 2019-10-13 18:18 | CONSULT ---
Consult Detox [facility] Reason for Current Admission/Consult: Patient overdosed on opioid Referred by:: Armin Hernandez - History History of Present Illness: 24 YO MALE WITH STARTING USING OPIATES AGE 21 PRESCRIBED FOR SHOULDER SURGERY BEGAN MISUSING 7 MOS POST OP IMMEDIATELY BEGAN USING HEROIN ONCE PAIN MEDS DC'D INH, IV USE BEGAN 2018 PREVIOUSLY WAS ON SUBOXONE X 7 MOS ABSTINENT SEVERAL PERIODS OF SELF TAPER ALSO IN DETOX AND REHAB WITH AFOREMENTIONED PERIOD OF ABSTINENCE ETOH USE BEGAN SP REHAB 2 MOS PRIOR TO THIS ADMISSION FOR OVERDOSE HE HAS HAD SEVERAL ADMISSION IN 04/2019 FOR DETOX WITHOUT COMPLETION AND A SEIZURE IN 06/2019 RESULTING IN NON-CARDIOGENIC PULMONARY EDEMA. HE HAS CONTINUED TO USE ALCOHOL AND OPIOIDS PER HIS OVERDOSE ON OPIOID ON THIS ADMISSION. 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 OPIOID DEPENDENCE FORMER SUBOXONE PATIENT FAILURE OF MAT AND ATTEMPTED DETOXES AND REHABS. PATIENT IF OVERDOSED, SHOULD BE PLACED ON METHADONE DETOX PROTOCOL, BUT UPON DISCHARGE HE SHOULD RETURN TO MAT HE HAS DEMONSTRATED THAT HE WILL NOT SUCCEED IN BEING ABSTINENT. ONCE BACK ON MAT : EITHER ON METHADONE OR SUBOXONE , THEN HE CAN ATTEMPT SLOW TAPER AND PERHAPS ACHIEVE ABSTINENCE. HE IS AT HIGH RISK FOR CONTINUED OVERDOSES HE CONTINUES TO USE STREET HEROIN. HE NEEDS A NARCAN PRESCRIPTION AND SHOULD CARRY IT WITH HIM AT ALL TIMES. WE WILL START A METHADONE DETOX PROTOCOL, BUT HE SHOULD BE REFERRED TO OUR OTP IN [facility] IF HE IS WILLING TO DO SO. ANOTHER OPTION IS TO REFER HIM TO [facility] FOR SUBOXONE MAINTENANCE HIS LONGEST PERIOD OF STABILITY WAS WHEN HE WAS MAINTAINED ON SUBOXONE. 2. ALCOHOL DEPENDENCE WITH INTOXICATION AND HISTORY OF SEIZURES ON WITHDRAWAL: CONTINUE HIS ATIVAN DETOX PROTOCOL. DR. BASS - Medication Detox Regimen/Protocol: Ativan, Methadone
[2019-10-13] MEDS ORDERED: cloNIDine HCL 0.1 MG TABLET PO PRN (18:25)
[2019-10-13] MEDS ORDERED: METHADONE HCL 10 MG TABLET PO ONE (18:25)
[2019-10-13] MEDS: levETIRAcetam 500 MG TABLET (FP) PO SCH (23:31)
[2019-10-14] MEDS: LORazepam 1 MG TABLET PO SCH ×4 (05:34→23:03)
[2019-10-14 07:10] LABS: BASO % 0.6 % (0-2.0); EOS % 2.7 % (0-4.5); HEMATOCRIT 43.7 % (35.4-49); HEMOGLOBIN 14.1 GM/dL (11.7-16.9); MCH 27.4 pg (25.7-33.7); MCHC 32.2 g/dl (32.0-35.9); MEAN CELL VOLUME 85.1 fl (80-96); MEAN PLT VOLUME 9.7 fl (7.5-11.1); MONO % 6.5 % (3.8-10.2); NEUT % 56.2 % (42.8-82.8); PLATELET COUNT 202 K/MM3 (134-434); RBC 5.14 M/mm3 (4.00-5.60); RDW 14.2 % (11.9-15.9); WHITE BLOOD COUNT 8.2 K/mm3 (4.0-10.0)
--- NOTE | 2019-10-14 07:30 | PN ---
Progress Note, Physician Chief Complaint: Pt asleep but arousable. No complaints offered History of Present Illness: 24 yo M PMH of substance abuse, withdrawal seizures BIBEMS for unresponsiveness. pt was found by family at home unresponsive with vomit. pt was given 0.5 mg of narcan en route and 0.5 mg of narcan in ED and has become more responsive. Pt acknowledges using heroin via IV . - Current Medication List Current Medications: Active Medications Clonidine (Catapres -) 0.1 mg PO Q4H PRN PRN Reason: Withdrawal Symptoms Stop: 10/15/19 23:59 Enoxaparin Sodium (Lovenox -) 40 mg SQ DAILY [facility] Last Admin: 10/13/19 10:06 Dose: 40 mg Folic Acid (Folic Acid -) 1 mg PO DAILY [facility] Last Admin: 10/13/19 10:06 Dose: 1 mg Sodium Chloride (Normal Saline -) 1,000 mls @ 125 mls/hr IV ASDIR [facility] Levetiracetam (Keppra -) 500 mg PO BID [facility] Last Admin: 10/13/19 23:31 Dose: 500 mg Lorazepam (Ativan -) 0.5 mg PO ONCE ONE Stop: 10/17/19 05:01 Lorazepam (Ativan -) 0.5 mg PO Q4H PRN PRN Reason: Symptoms of Withdrawal Stop: 10/17/19 00:00 Lorazepam (Ativan -) 0.5 mg PO Q6H [facility] Stop: 10/16/19 23:01 Lorazepam (Ativan -) 1 mg PO 0500,1100,1700,2300 [facility] Stop: 10/15/19 23:01 Lorazepam (Ativan -) 1 mg PO Q4H PRN PRN Reason: Symptoms of Withdrawal Stop: 10/15/19 23:59 Lorazepam (Ativan -) 2 mg PO 0500,1100,1700,2300 [facility] Stop: 10/15/19 05:01 Last Admin: 10/14/19 05:34 Dose: 2 mg Methadone HCl 20 mg/ Methadone (HCl 5 mg) 25 mg PO ONCE ONE Stop: 10/14/19 10:01 Methadone HCl 10 mg/ Methadone (HCl 5 mg) 15 mg PO ONCE ONE Stop: 10/16/19 10:01 Methadone HCl (Dolophine -) 5 mg PO ONCE@0600 ONE Stop: 10/18/19 06:01 Methadone HCl (Dolophine -) 10 mg PO ONCE ONE Stop: 10/17/19 10:01 Methadone HCl (Dolophine -) 20 mg PO ONCE ONE Stop: 10/15/19 10:01 Multivitamins/Minerals/Vitamin C (Tab-A-Vit -) 1 tab PO DAILY [facility] Last Admin: 10/13/19 10:06 Dose: 1 tab Thiamine HCl (Vitamin B1 -) 100 mg PO DAILY [facility] Last Admin: 10/13/19 10:06 Dose: 100 mg - Objective Vital Signs: Vital Signs Temperature 98.9 F 10/14/19 06:00 Pulse Rate 69 10/14/19 06:00 Respiratory Rate 18 10/14/19 06:00 Blood Pressure 96/72 10/14/19 06:00 O2 Sat by Pulse Oximetry (%) 99 10/13/19 20:28 Constitutional: Yes: Well Nourished, No Distress, Calm Eyes: Yes: WNL, Conjunctiva Clear HENT: Yes: WNL, Atraumatic, Normocephalic Neck: Yes: WNL, Supple, Trachea Midline Cardiovascular: Yes: WNL, Regular Rate and Rhythm Respiratory: Yes: WNL, Regular, CTA Bilaterally Gastrointestinal: Yes: WNL, Normal Bowel Sounds ...Rectal Exam: Yes: Deferred Genitourinary: Yes: WNL Breast(s): Yes: WNL Musculoskeletal: Yes: WNL Extremities: Yes: WNL Edema: No Peripheral Pulses WNL: Yes Peripheral Pulses: Left Radial: 2+, Right Radial: 2+, Left Doralis Pedis: 2+, Right Dorsalis Pedis: 2+, Left Femoral: 2+, Right Femoral: 2+ Integumentary: Yes: Tattoos Neurological: Yes: WNL, Alert, Oriented ...Motor Strength: WNL Labs: CBC, BMP 10/14/19 06:00 Problem List - Problems (1) Prophylactic measure Assessment/Plan: FEN adequate PO intake regular diet monitor electrolytes DVT lovenox Dispo can be transfered from tele to med surg floor full code discharge planning to rehab/detox Code(s): Z29.9 - ENCOUNTER FOR PROPHYLACTIC MEASURES, UNSPECIFIED (2) Polysubstance abuse Assessment/Plan: Failure of MAT and previous detoxes and rehabs seen by Dr Sanders c/w ativan & methadone taper pt not agreeable at this time for rehab-will redress again Code(s): F19.10 - OTHER PSYCHOACTIVE SUBSTANCE ABUSE, UNCOMPLICATED (3) Polysubstance overdose Code(s): T50.901A - POISONING BY UNSP DRUG/MEDS/BIOL SUBST, ACCIDENTAL, INIT (4) Withdrawal symptoms, drug or narcotic Assessment/Plan: c/w ativan and methadone taper Code(s): F19.239 - OTH PSYCHOACTIVE SUBSTANCE DEPENDENCE WITH WITHDRAWAL, UNSP (5) 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 - New Patient This patient is new to me today: No - Critical Care Critical Care patient: No - Discharge Referral Referred to [facility] Med P.C.: No
[2019-10-14 07:37] LABS: ALBUMIN 3.7 g/dl (3.4-5.0); BILIRUBIN,TOTAL 1.7 mg/dL (0.2-1); BLOOD UREA NITROGEN 9.1 mg/dL (7-18); MAGNESIUM 2.2 mg/dL (1.8-2.4); POTASSIUM 4.4 mmol/L (3.5-5.1); TOT PROT 7.2 g/dl (6.4-8.2)
[2019-10-14] MEDS ORDERED: METHADONE HCL 10 MG TABLET ONE (10:00)
[2019-10-14] MEDS ORDERED: METHADONE 20 MG, METHADONE 5 MG PO ONE (10:00)
[2019-10-14] MEDS ORDERED: METHADONE HCL 5 MG TABLET ONE (10:01)
[2019-10-14] MEDS: ENOXAPARIN NA (PORCINE) 40 MG/0.4 ML DISP.SYRIN SQ SCH (10:18)
[2019-10-14] MEDS: levETIRAcetam 500 MG TABLET (FP) PO SCH ×2 (10:20→21:51)
[2019-10-14] MEDS: FOLIC ACID 1 MG TABLET (FP) PO SCH (10:21)
[2019-10-14] MEDS: MULTIVITAMINS (DAILY MVI) TABLET (FP) PO SCH (10:21)
[2019-10-14] MEDS: THIAMINE HCL 100 MG TABLET (FP) PO SCH (10:21)
[2019-10-15] MEDS: LORazepam 1 MG TABLET PO SCH ×4 (05:43→17:43)
--- NOTE | 2019-10-15 07:43 | PN ---
Progress Note, Physician Chief Complaint: Stating he is "withdrawing" asking for more methadone History of Present Illness: 24 yo M PMH of substance abuse, withdrawal seizures BIBEMS for unresponsiveness. pt was found by family at home unresponsive with vomit. pt was given 0.5 mg of narcan en route and 0.5 mg of narcan in ED and has become more responsive. Pt acknowledges using heroin via IV . - Current Medication List Current Medications: Active Medications Clonidine (Catapres -) 0.1 mg PO Q4H PRN PRN Reason: Withdrawal Symptoms Stop: 10/15/19 23:59 Last Admin: 10/14/19 21:48 Dose: 0.1 mg Enoxaparin Sodium (Lovenox -) 40 mg SQ DAILY [facility] Last Admin: 10/14/19 10:18 Dose: 40 mg Folic Acid (Folic Acid -) 1 mg PO DAILY [facility] Last Admin: 10/14/19 10:21 Dose: 1 mg Levetiracetam (Keppra -) 500 mg PO BID [facility] Last Admin: 10/14/19 21:51 Dose: Not Given Lorazepam (Ativan -) 0.5 mg PO ONCE ONE Stop: 10/17/19 05:01 Lorazepam (Ativan -) 0.5 mg PO Q4H PRN PRN Reason: Symptoms of Withdrawal Stop: 10/17/19 00:00 Lorazepam (Ativan -) 0.5 mg PO Q6H [facility] Stop: 10/16/19 23:01 Lorazepam (Ativan -) 1 mg PO 0500,1100,1700,2300 [facility] Stop: 10/15/19 23:01 Last Admin: 10/15/19 05:43 Dose: Not Given Lorazepam (Ativan -) 1 mg PO Q4H PRN PRN Reason: Symptoms of Withdrawal Stop: 10/15/19 23:59 Last Admin: 10/15/19 01:40 Dose: 1 mg Methadone HCl 10 mg/ Methadone (HCl 5 mg) 15 mg PO ONCE ONE Stop: 10/16/19 10:01 Methadone HCl (Dolophine -) 5 mg PO ONCE@0600 ONE Stop: 10/18/19 06:01 Methadone HCl (Dolophine -) 10 mg PO ONCE ONE Stop: 10/17/19 10:01 Methadone HCl (Dolophine -) 20 mg PO ONCE ONE Stop: 10/15/19 10:01 Multivitamins/Minerals/Vitamin C (Tab-A-Vit -) 1 tab PO DAILY [facility] Last Admin: 10/14/19 10:21 Dose: 1 tab Thiamine HCl (Vitamin B1 -) 100 mg PO DAILY [facility] Last Admin: 10/14/19 10:21 Dose: 100 mg - Objective Vital Signs: Vital Signs Temperature 98.4 F 10/15/19 06:00 Pulse Rate 61 10/15/19 06:00 Respiratory Rate 18 10/15/19 06:00 Blood Pressure 104/61 10/15/19 06:00 O2 Sat by Pulse Oximetry (%) 100 10/14/19 20:24 Constitutional: Yes: Well Nourished, Calm, Anxious Eyes: Yes: WNL, Conjunctiva Clear HENT: Yes: WNL, Atraumatic, Normocephalic Neck: Yes: WNL, Supple, Trachea Midline Cardiovascular: Yes: WNL, Regular Rate and Rhythm Respiratory: Yes: WNL, Regular, CTA Bilaterally Gastrointestinal: Yes: WNL, Normal Bowel Sounds ...Rectal Exam: Yes: Deferred Genitourinary: Yes: WNL Breast(s): Yes: WNL Musculoskeletal: Yes: WNL Extremities: Yes: WNL Edema: No Peripheral Pulses WNL: Yes Peripheral Pulses: Left Radial: 2+, Right Radial: 2+, Left Doralis Pedis: 2+, Right Dorsalis Pedis: 2+, Left Femoral: 2+, Right Femoral: 2+ Integumentary: Yes: WNL, Tattoos Neurological: Yes: WNL, Alert, Oriented ...Motor Strength: WNL Psychiatric: Yes: WNL Labs: CBC, BMP 10/14/19 06:00 10/14/19 06:00 Problem List - Problems (1) Prophylactic measure Assessment/Plan: FEN adequate PO intake regular diet monitor electrolytes DVT lovenox Dispo can be transfered from tele to med surg floor full code discharge planning to rehab/detox Code(s): Z29.9 - ENCOUNTER FOR PROPHYLACTIC MEASURES, UNSPECIFIED (2) Polysubstance abuse Assessment/Plan: Failure of MAT and previous detoxes and rehabs seen by Dr Sanders c/w ativan & methadone taper pt still not agreeable at this time for rehab-mother states she is not taking him home Code(s): F19.10 - OTHER PSYCHOACTIVE SUBSTANCE ABUSE, UNCOMPLICATED (3) Polysubstance overdose Code(s): T50.901A - POISONING BY UNSP DRUG/MEDS/BIOL SUBST, ACCIDENTAL, INIT (4) Withdrawal symptoms, drug or narcotic Assessment/Plan: c/w ativan and methadone taper Code(s): F19.239 - OTH PSYCHOACTIVE SUBSTANCE DEPENDENCE WITH WITHDRAWAL, UNSP (5) 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 - New Patient This patient is new to me today: No - Critical Care Critical Care patient: No - Discharge Referral Referred to [facility] Med P.C.: No CIWA Score - CIWA Score Nausea/Vomitin-No Nausea/No Vomiting Muscle Tremors: 2 Anxiety: 1-Mildly Anxious Agitation: 2 Paroxysmal Sweats: 1-Minimal Palms Moist Orientation: 1-Uncertain about Date Tacttile Disturbances: 2-Mild Itch/Numbness/Burn Auditory Disturbances: 1-Very Mild Visual Disturbances: 1-Very Mild Sensitivity Headache: 2-Mild CIWA-Ar Total Score: 13
[2019-10-15 09:29] LABS: BASO % 0.5 % (0-2.0); EOS % 3.3 % (0-4.5); HEMATOCRIT 39.2 % (35.4-49); HEMOGLOBIN 13.3 GM/dL (11.7-16.9); LYMPH % 39.9 % (8-40); MCHC 33.8 g/dl (32.0-35.9); MEAN CELL VOLUME 82.7 fl (80-96); MEAN PLT VOLUME 8.9 fl (7.5-11.1); MONO % 9.6 % (3.8-10.2); NEUT % 46.7 % (42.8-82.8); PLATELET COUNT 192 K/MM3 (134-434); RBC 4.74 M/mm3 (4.00-5.60); RDW 13.2 % (11.9-15.9); WHITE BLOOD COUNT 6.7 K/mm3 (4.0-10.0)
[2019-10-15] MEDS ORDERED: METHADONE HCL 10 MG TABLET PO ONE (10:00)
[2019-10-15 10:10] LABS: ALBUMIN 3.6 g/dl (3.4-5.0); BILIRUBIN,TOTAL 1.7 mg/dL (0.2-1); BLOOD UREA NITROGEN 14.7 mg/dL (7-18); CALCIUM 8.7 mg/dL (8.5-10.1); CREATININE 0.9 mg/dL (0.55-1.3); MAGNESIUM 2.2 mg/dL (1.8-2.4); POTASSIUM 3.7 mmol/L (3.5-5.1); TOT PROT 6.8 g/dl (6.4-8.2)
[2019-10-15] MEDS: MULTIVITAMINS (DAILY MVI) TABLET (FP) PO SCH (12:01)
[2019-10-15] MEDS: ENOXAPARIN NA (PORCINE) 40 MG/0.4 ML DISP.SYRIN SQ SCH (12:01)
[2019-10-15] MEDS: levETIRAcetam 500 MG TABLET (FP) PO SCH (12:01)
[2019-10-15] MEDS: FOLIC ACID 1 MG TABLET (FP) PO SCH (12:01)
[2019-10-15] MEDS: THIAMINE HCL 100 MG TABLET (FP) PO SCH (12:02)
[2019-10-15 15:18] VITALS: BP 127/79; PULSE 95; TEMP 98.7
--- NOTE | 2019-10-15 17:54 | HOSP ---
Physical Examination Vital Signs: Vital Signs Temperature 98.7 F 10/15/19 15:17 Pulse Rate 95 H 10/15/19 15:17 Respiratory Rate 18 10/15/19 15:17 Blood Pressure 127/79 10/15/19 15:17 O2 Sat by Pulse Oximetry (%) 100 10/14/19 20:24 Labs: CBC, BMP 10/15/19 08:58 10/15/19 08:58 Hospitalist Encounter Assessment: Patient requesting to sign out AMA. Informed pt that he is at risk of active withdrawal, seizure, cardiac arrest, respiratory arrest, and . States he was going to go to friends house use heroine one last time and go to rehab tomorrow. Attempted to convince patient to stay unsuccessfully. Pt completed 3/ 5 days or ativan and methadone detox protocol.
[2019-10-16] MEDS ORDERED: LORazepam 0.5 MG TABLET PO PRN
[2019-10-16] MEDS ORDERED: LORazepam 0.5 MG TABLET PO SCH (05:00)
[2019-10-16] MEDS ORDERED: METHADONE 10 MG, METHADONE 5 MG PO ONE (10:00)
[2019-10-17] MEDS ORDERED: LORazepam 0.5 MG TABLET PO ONE (05:00)
[2019-10-17] MEDS ORDERED: METHADONE HCL 10 MG TABLET PO ONE (10:00)
[2019-10-18] MEDS ORDERED: METHADONE HCL 5 MG TABLET PO ONE (06:00)
== END 2019-10-15 17:30 | disposition left against medical advice (07) | DRG 816 ==
LOC: JER 10:12 → JERBED 20:19 → J2W 10-13 04:41
PROVIDERS: ADMIT Internal Medicine; ATTEND Nurse Practitioner Acute Care
DX: T40.1X1A Poisoning by heroin, accidental (unintentional), initial encounter (principal); F19.10 Other psychoactive substance abuse, uncomplicated; Z72.0 Tobacco use; F11.23 Opioid dependence with withdrawal; G40.89 Other seizures
CPT/HCPCS: 36415; 70450-TC; 71045-TC-FY; 80053; 80307; 81003; 82962; 83605; 83735; 84100; 84443; 85025; 87086; 93005; 93010; 99285-25; J0735; J7030

== ENCOUNTER 2021-12-23 15:30 | Emergency (ER) | payer OTHER ==
[2021-12-23 15:53] VITALS: BP 136/74; PULSE 103; TEMP 98.1; BMI 30.8
[2021-12-23] MEDS ORDERED: KETOROLAC TROMETHAMINE 30 MG/1 ML VIAL IVPB ONE (17:12)
[2021-12-23] MEDS ORDERED: SODIUM CHLORIDE 0.9% 500 ML INFUS.BAG IV ONE (17:12)
[2021-12-23] MEDS ORDERED: CEFAZOLIN 1 GM/D5W 1 GM/50 ML BAG IVPB ONE (17:18)
[2021-12-23] MEDS ORDERED: ceFAZolin SODIUM 1 GM VIAL ONE (17:28)
[2021-12-23] MEDS ORDERED: KETOROLAC TROMETHAMINE 15 MG/ML VIAL ONE (17:38)
[2021-12-23 18:30] LABS: BASO % 0.3 % (0-2.0); EOS % 0.5 % (0-4.5); HEMATOCRIT 49.7 % (35.4-49); HEMOGLOBIN 16.3 GM/dL (11.7-16.9); LYMPH % 20.3 % (8-40); MCHC 32.8 g/dl (32.0-35.9); MEAN CELL VOLUME 82.4 fl (80-96); MEAN PLT VOLUME 9.9 fl (7.5-11.1); MONO % 10.4 % (3.8-10.2); NEUT % 68.5 % (42.8-82.8); PLATELET COUNT 176 10^3/uL (134-434); RBC 6.03 M/mm3 (4.00-5.60); RDW 14.1 % (11.9-15.9)
[2021-12-23 18:46] LABS: BLOOD UREA NITROGEN 16.3 mg/dL (7-18)
[2021-12-23 18:49] LABS: CREATININE 1.3 mg/dL (0.55-1.3)
[2021-12-23 18:51] LABS: BILIRUBIN,TOTAL 0.5 mg/dL (0.2-1); TOT PROT 7.4 g/dl (6.4-8.2)
== END 2021-12-23 19:33 | disposition home or self-care (01) ==
LOC: JERFT 15:30
PROC: 3E03329 Introduction of Other Anti-infective into Peripheral Vein, Percutaneous Approach (ICD-10-PCS; principal; 2021-12-23)
PROC: 3E0333Z Introduction of Anti-inflammatory into Peripheral Vein, Percutaneous Approach (ICD-10-PCS; 2021-12-23)
DX: L05.01 Pilonidal cyst with abscess (principal)
CPT/HCPCS: 36415; 80053; 85025; 99284-25

== ENCOUNTER 2024-01-16 09:53 | Emergency (ER) | payer OTHER ==
[2024-01-16 09:58] VITALS: BP 159/98; PULSE 116; RESP 18; TEMP 98.6; BMI 30.9
[2024-01-16] MEDS ORDERED: IBUPROFEN 600 MG TABLET (FP) PO ONE (11:01)
[2024-01-16] MEDS ORDERED: ACETAMINOPHEN 500 MG TABLET (FP) ONE (11:01)
[2024-01-16] MEDS: IBUPROFEN 600 MG TABLET (FP) PO ONE (11:06)
[2024-01-16] MEDS: ACETAMINOPHEN 500 MG TABLET (FP) PO ONE (11:07)
[2024-01-16] MEDS ORDERED: MIDAZOLAM HCL 2 MG/2 ML SINGLE DOSE VIAL ONE ×2 (11:55→12:27)
[2024-01-16] MEDS: MIDAZOLAM HCL 2 MG/2 ML SINGLE DOSE VIAL IM ONE ×2 (11:59→12:34)
== END 2024-01-16 13:44 | disposition home or self-care (01) ==
LOC: JERFT 09:53 → JER 09:53 → JERFT 13:44
PROC: 0J990ZZ Drainage of Buttock Subcutaneous Tissue and Fascia, Open Approach (ICD-10-PCS; principal; 2024-01-16)
PROC: 3E023GC Introduction of Other Therapeutic Substance into Muscle, Percutaneous Approach (ICD-10-PCS; 2024-01-16)
PROC: 3E023GC Introduction of Other Therapeutic Substance into Muscle, Percutaneous Approach (ICD-10-PCS; 2024-01-16)
DX: L05.01 Pilonidal cyst with abscess (principal)
CPT/HCPCS: 99284-25

== ENCOUNTER 2024-03-22 09:50 | Emergency (ER) | payer OTHER ==
[2024-03-22] MEDS ORDERED: MAG HYDROX/AL HYDROX/SIMETH 30 ML UNIT-DOSE CUP ONE (11:36)
[2024-03-22] MEDS ORDERED: FAMOTIDINE 20 MG/50 ML IVPB 20 MG/50 ML MG IVPB ONE (11:37)
[2024-03-22] MEDS: MAG HYDROX/AL HYDROX/SIMETH -MYLANTA- ORAL SUSPENSION PO ONE (11:52)
[2024-03-22] MEDS: LACTATED RINGERS SOLUTION 1,000 ML/1,000 ML INFUS.BAG IV STA ×2 (11:52→12:45)
[2024-03-22] MEDS: FAMOTIDINE 20 MG/50 ML IVPB 20 MG/50 ML MG IVPB ONE (11:52)
[2024-03-22 12:06] LABS: BASO % 0.4 % (0-2.0); EOS % 0.8 % (0-4.5); HEMATOCRIT 52.5 % (35.4-49); HEMOGLOBIN 17.9 GM/dL (11.7-16.9); LYMPH % 23.4 % (8-40); MCH 28.3 pg (25.7-33.7); MCHC 34.1 g/dl (32.0-35.9); MEAN CELL VOLUME 82.9 fl (80-96); MEAN PLT VOLUME 8.9 fl (7.5-11.1); MONO % 12.1 % (3.8-10.2); NEUT % 63.3 % (42.8-82.8); PLATELET COUNT 190 10^3/uL (134-434); RBC 6.33 M/mm3 (4.00-5.60); RDW 13.9 % (11.9-15.9); WHITE BLOOD COUNT 8.4 K/mm3 (4.0-10.0)
[2024-03-22 12:08] LABS: URINE APPEARANCE CLEAR; URINE BILIRUBIN NEGATIVE (NEGATIVE); URINE COLOR YELLOW; URINE GLUCOSE (UA) NEGATIVE (NEGATIVE); URINE KETONE TRACE (NEGATIVE); URINE LEUK ESTERASE NEGATIVE (NEGATIVE); URINE NITRITE NEGATIVE (NEGATIVE); URINE PROTEIN TRACE (NEGATIVE)
[2024-03-22 12:17] VITALS: BP 109/75; PULSE 78; RESP 18; TEMP 98.4; BMI 30.1
[2024-03-22 12:25] LABS: POTASSIUM 4.3 mmol/L (3.5-5.1)
[2024-03-22 12:28] LABS: ALBUMIN 4.4 g/dl (3.4-5.0); BLOOD UREA NITROGEN 15.5 mg/dL (7-18); CALCIUM 9.6 mg/dL (8.5-10.1); MAGNESIUM 2.4 mg/dL (1.8-2.4)
[2024-03-22 12:31] LABS: CREATININE 1.2 mg/dL (0.55-1.3)
[2024-03-22 12:33] LABS: BILIRUBIN,TOTAL 0.6 mg/dL (0.2-1); TOT PROT 7.5 g/dl (6.4-8.2)
== END 2024-03-22 16:55 | disposition home or self-care (01) ==
LOC: JER 09:50
PROC: 3E033GC Introduction of Other Therapeutic Substance into Peripheral Vein, Percutaneous Approach (ICD-10-PCS; principal; 2024-03-22)
PROC: 3E0337Z Introduction of Electrolytic and Water Balance Substance into Peripheral Vein, Percutaneous Approach (ICD-10-PCS; 2024-03-22)
DX: R10.13 Epigastric pain (principal); K59.00 Constipation, unspecified; R11.14 Bilious vomiting; K92.0 Hematemesis; R63.0 Anorexia
CPT/HCPCS: 36415; 74019-TC-FY; 74177-TC; 80053; 81003; 83690; 83735; 85025; 99285-25; Q9967